=== PATIENT | female | born 1975 | race Caucasian/White ===

== ENCOUNTER → 2018-08-07 18:45 | Outpatient (CLI) | payer MEDICARE, MEDICAID, SELFPAY ==
--- NOTE | 2018-08-07 18:50 | DI.MRI.S_ITS ---
PROCEDURE: MR LUMBAR SPINE WO CON INDICATIONS: LOW BACK PAIN TECHNIQUE: Noncontrast sagittal T1 spin echo and T2 fast echo, sagittal STIR, axial T1 and T2 fast spin echo through the lumbar spine. In cases with scoliosis, additional coronal T2 fast spin echo may be performed. COMPARISON: None. FINDINGS: Image quality: Excellent. Alignment and Curvature: There is normal bony alignment. There is 8 degrees of convex left of lumbar spine curvature. Bone Marrow: Reactive endplate change is noted adjacent to the L3-L4, L4-L5 and L5-S1 discs. There is a 1.2 cm in diameter rounded focus of decreased T1 signal with surrounding edema in the left ala of the sacrum. There is a 0.9 cm diameter focus of decreased T1 signal in the anterior margin of the S1 vertebral body. There is an ill-defined area of decreased T1 and increased T2 signal in the right ala of the sacrum. Large Schmorl's node in the superior plate of the L1 vertebral body. No acute vertebral body compression fractures. Spinal Cord: Conus medullaris terminates at the L1 level. Visualized cord demonstrates normal signal and size. Paraspinous Soft Tissues: No paravertebral masses. Numerous retroperitoneal left renal systemic venous varices noted. L1-L2: Normal appearance. L2-L3: Slight loss of the signal. Minimal diffuse disc bulge. No central stenosis. No neural foraminal narrowing. No neural impingement. L3-L4: Loss of disc signal and slight loss of disc height. Mild diffuse disc bulge. Small left foraminal disc extrusion. Extruded disc material impinges on the exiting left L3 nerve root. No central stenosis. [id number] left neural foraminal narrowing. L4-L5: Loss of the signal slight loss of disc height. Mild diffuse disc bulge. No central stenosis. No neural foraminal narrowing. No neural impingement. L5-S1: Loss of the signal. Mild diffuse disc bulge with small central disc protrusion. No central stenosis. No neural foraminal narrowing. No neural impingement. IMPRESSION: 1. Foci of abnormal signal involving the sacrum concerning for neoplastic process including metastatic disease. Recommend nuclear medicine whole-body bone scan for further evaluation. 2. Multilevel degenerative disc disease. 3. Left foraminal L3-L4 disc extrusion. Extruded disc material impinges upon the exiting left L3 nerve root. Please correlate with clinical data. 4. No central stenosis. 5. Mild to moderate left L3-L4 neural foraminal narrowing. 6. Left renal systemic venous varices. Please correlate with clinical data to exclude hepatic cirrhosis with portal hypertension. 7. Findings and recommendations discussed with Dr. Soliman on 08/09/2018 at 0943 hours. Dictated by: Nilda Maher MD, PhD on 08/08/2018 at 9:30 Approved by: Nilda Maher MD, PhD on 08/08/2018 at 9:48
== END ==
PROVIDERS: Family Provider Family Medicine; PCP Family Medicine; Visit Provider Family Medicine
DX: M54.5 Low back pain (principal); M48.061 Spinal stenosis, lumbar region without neurogenic claudication; I86.8 Varicose veins of other specified sites; M51.36 Other intervertebral disc degeneration, lumbar region; M51.37 Other intervertebral disc degeneration, lumbosacral region; M51.46 Schmorl's nodes, lumbar region; M48.8X8 Other specified spondylopathies, sacral and sacrococcygeal region
CPT/HCPCS: 72148

== ENCOUNTER → 2018-08-11 09:32 | Outpatient (CLI) | payer MEDICARE, MEDICAID, SELFPAY ==
--- NOTE | 2018-08-11 | DI.NM.S_ITS ---
PROCEDURE: NM BONE SCAN WHOLE BODY RADIOPHARMACEUTICAL: 21.80 mCi Tc-99m MDP IV. INDICATIONS: BONE LESION ON SACRUM TECHNIQUE: Delayed whole-body scintigrams were obtained approximately 3-4 hours after intravenous injection of radiotracer. Anterior and posterior views were acquired from vertex to feet. Additional left and right oblique views of the pelvis were obtained. COMPARISON: [facility], CR, L-SPINE 2-3 VIEWS, 09/10/2014, 11:47. [facility], CR, SACROILIAC JOINTS 3 OR MORE VW, 09/10/2014, 11:47. [facility], MR, ABDOMEN W&WO CONTRAST, 10/31/2013, 17:43. [facility], CT, ABDOMEN/PELVIS WITH CONTRAST, 07/17/2013, 13:25. [facility], MR, MR LUMBAR SPINE WO CON, 08/07/2018, 18:55. FINDINGS: There is asymmetrically increased radiotracer uptake surrounding and involving the right sacroiliac joint; this may correlate with signal abnormalities seen on comparison MRI.. No definite radiotracer uptake to correlate with the lesion seen within the left sacrum on comparison MRI of 08/07/18. Remainder of periarticular radiotracer uptake within the spine, bilateral hip joints, bilateral shoulder joints, and bilateral ankles are likely secondary to degenerative change or physiologic uptake. IMPRESSION: 1. Asymmetric increased radiotracer uptake surrounding and involving the right sacroiliac joint, which is likely secondary to degenerative change but can also be seen secondary to infectious, inflammatory, or malignant etiologies. Clinical correlation recommended. 2. No convincing abnormal radiotracer uptake within the left sacrum to correlate with the bone lesion seen on comparison lumbar spine MRI of 08/07/18. Consider musculoskeletal pelvic bone MRI with intravenous contrast for further evaluation. Dictated by: Guillermo Canada M.D. on 08/11/2018 at 15:52 Approved by: Guillermo Canada M.D. on 08/11/2018 at 16:11
== END ==
PROVIDERS: Family Provider Family Medicine; PCP Family Medicine; Visit Provider Family Medicine
DX: M53.3 Sacrococcygeal disorders, not elsewhere classified (principal)
CPT/HCPCS: 78306; A9503

== ENCOUNTER → 2018-09-26 16:56 | Outpatient (CLI) | payer MEDICARE, MEDICAID, SELFPAY ==
--- NOTE | 2018-09-26 17:01 | DI.MRI.S_ITS ---
PROCEDURE: MR PELIS WO/W CON INDICATIONS: abnormal nuc med scan TECHNIQUE: Noncontrast coronal T1 spin echo and STIR, sagittal T1 spin echo with fat saturation and STIR, axial T1 spin echo and T2 fast spin echo with fat saturation. After the administration of contrast, axial/sagittal/coronal T1 spin echo with fat saturation through the pelvis. COMPARISON: [facility], NM, NM BONE SCAN WHOLE BODY, 08/11/2018, 13:01. [facility], MR, MR LUMBAR SPINE WO CON, 08/07/2018, 18:55. [facility], CR, SACROILIAC JOINTS 3 OR MORE VW, 09/10/2014, 11:47. [facility], CR, XR LUMBAR SPINE 2 OR 3 VIEWS, 08/28/2018, 14:31. [facility], CT, ABDOMEN/PELVIS WITH CONTRAST, 07/17/2013, 13:25. FINDINGS: Image quality: Excellent. Bones: The visualized bone marrow demonstrates normal signal on all sequences except at the sacrum bilaterally and the endplate and vertebral body marrow space adjacent above and below to the mildly degenerated disc at L3-4. The nuclear medicine bone scan had shown asymmetric right-sided elevated isotope deposition but no abnormality at the L3-4 vertebral body marrow space and endplates. The sacral ala abnormality in the MR study currently is now bilaterally. It had been unilateral on the right on the nuclear medicine study. Vertically oriented bands of reduced T2 signal and reduced contrast enhancement are present within each sacral ala, characteristic of bilateral insufficiency fractures. The overlying cortex appears intact. No abnormal intraosseous enhancement. Soft tissues: No soft tissue masses are visualized. The scanned muscles demonstrate normal overall bulk and internal signal. Subcutaneous tissues appear normal as well. No abnormal soft tissue enhancement. IMPRESSION: Malignancy is not suspected. Bilateral sacral ala insufficiency fractures are present producing elevated T2 signal and contrast enhancement with vertically oriented striations through the area of marrow edema characteristic of an intertrabecular fractures in this clinical circumstance. Degenerative disc disease could explain the reactive marrow edema adjacent to the L3-4 disc space both above and below. Please note, however, that slight insufficiency fractures within the vertebral endplates at L3-4 in the setting of osteoporosis could produce this same appearance. Next same area was not abnormal in the nuclear medicine study only a short time ago and for this reason osteoporotic etiology is considered a likely cause. Dictated by: Je Garcia M.D. on 09/27/2018 at 8:38 Approved by: Je Garcia M.D. on 09/27/2018 at 8:44
== END ==
PROVIDERS: PCP Family Medicine; Visit Provider Physical Medicine & Rehabilitation Pain Medicine
DX: M54.5 Low back pain (principal); M84.48XA Pathological fracture, other site, initial encounter for fracture
CPT/HCPCS: 72197; A9579

== ENCOUNTER → 2019-04-24 14:34 | Outpatient (CLI) | payer MEDICARE, SELFPAY | PROVIDERS: PCP Family Medicine; Visit Provider Family Medicine | DX: M81.0 Age-related osteoporosis without current pathological fracture (principal); S02.2XXA Fracture of nasal bones, initial encounter for closed fracture; M46.1 Sacroiliitis, not elsewhere classified; M54.30 Sciatica, unspecified side; Z82.62 Family history of osteoporosis; F17.200 Nicotine dependence, unspecified, uncomplicated | CPT/HCPCS: 77080 ==

== ENCOUNTER → 2019-05-04 13:18 | Outpatient (CLI) | payer MEDICARE, MEDICAID, SELFPAY ==
--- NOTE | 2019-05-04 | DI.RAD.S_ITS ---
PROCEDURE: XR LUMBAR SPINE 2-3V INDICATIONS: Follow up on bilteral Saccral insufficieny fracture TECHNIQUE: 3 views of the lumbar spine were acquired. COMPARISON: [facility], , L-SPINE 2-3 VIEWS, 09/10/2014, 11:47. FINDINGS: Bones: No fracture or focal osseous destruction. Straightening of the normal lordotic curvature. Multilevel degenerative endplate sclerosis and spurring. Diffuse facet arthropathy. Minimal anterior wedging of L1 which is unchanged. Severe narrowing of the L3-L4 disc space and moderate L4-L5 disc space narrowing. There is interval increase in levoscoliosis Soft tissues: Overlying bowel gas pattern is normal. No suspicious soft tissue calcifications. IMPRESSION: Levoscoliosis, increased since the prior study. Multilevel lumbar spondylosis, which has progressed since 09/10/14 Dictated by: Kam Barton M.D. on 05/04/2019 at 16:22 Approved by: Kam Barton M.D. on 05/04/2019 at 16:23
--- NOTE | 2019-05-04 | DI.RAD.S_ITS ---
PROCEDURE: XR SACRUM COCCYX MIN 2V INDICATIONS: Follow up on bilteral Saccral insufficieny fractur TECHNIQUE: 3 views of the sacrum and coccyx acquired. COMPARISON: [facility], CR, XR LUMBAR SPINE 2 OR 3 VIEWS, 08/28/2018, 14:31. [facility], CR, XR LUMBAR SPINE 2-3V, 05/04/2019, 13:31. [facility], CR, SACROILIAC JOINTS 3 OR MORE VW, 09/10/2014, 11:47. [facility], MR, MR PELVIS WO/W CON, 09/26/2018, 17:02. FINDINGS: Bones: No suspicious bony lesions. Irregularity and sclerosis involving both sacral ala keeping with insufficiency fractures as seen on the previous comparison MRI Soft tissues: Visualized bowel gas pattern is normal. No suspicious soft tissue densities. IMPRESSION: Bilateral sacral ala insufficiency fractures as before. Mild increased sclerosis since 08/28/18 Dictated by: Kam Barton M.D. on 05/04/2019 at 16:24 Approved by: Kam Barton M.D. on 05/04/2019 at 16:27
== END ==
PROVIDERS: PCP Family Medicine; Referring Provider Family Medicine; Visit Provider Family Medicine
DX: M84.48XA Pathological fracture, other site, initial encounter for fracture (principal); M47.816 Spondylosis without myelopathy or radiculopathy, lumbar region; M41.9 Scoliosis, unspecified
CPT/HCPCS: 72100; 72220

== ENCOUNTER 2019-05-24 11:24 | Inpatient (IN) | payer MEDICARE, MEDICAID, SELFPAY ==
[2019-05-24] VITALS (7 sets, daily range): BP systolic 104–135; BP diastolic 41–81; PULSE 54–84; RESP 17–18; TEMP 36.4–37.2; O2SAT 92–100; BMI 19.9
[2019-05-24 12:05] LABS: Add Manual Diff / Slide Review NO; Basophils Absolute Auto 100 /uL (0-100); Basophils Percent Auto 0.6 % (0-2); Eosinophils Absolute Auto 0 /uL (0-450); Eosinophils Percent Auto 0.5 % (2-4); Hematocrit 40.9 % (36-46); Hemoglobin 14.1 g/dL (12.0-16.0); Lymphocytes Absolute Auto 1400 /uL (1100-4500); Lymphocytes Percent Auto 15.6 % (25-40); Mean Corpuscular HGB Conc 34.5 % (30-36); Mean Corpuscular Hemoglobin 34.4 PG (26-34); Mean Corpuscular Volume 99.7 fL (80-100); Monocytes Absolute Auto 400 /uL (0-900); Monocytes Percent Auto 4.9 % (3-14); Neutrophils Absolute Auto 6800 /uL (1500-7000); Neutrophils Percent Auto 78.4 % (50-75); Platelet Count 74 X10^3/uL (150-400); Red Cell Distribution Width 14.4 % (11.6-14.8); White Blood Cell Count 8.7 X10^3/uL (4.5-11.0)
[2019-05-24 12:10] LABS: INR 1.2 (0.9-1.3); Prothrombin Time 13.6 SECONDS (10.1-12.7)
[2019-05-24 12:12] LABS: PTT Partial Thromboplastin Tim 33 SECONDS (26.4-36.2)
[2019-05-24 12:14] LABS: Alanine Aminotransferase 18 IU/L (<35); Albumin 4.6 g/dL (3.5-5.0); Albumin Globulin Ratio 1.3 (1.0-2.8); Alkaline Phosphatase 65 U/L (38-126); Aspartate Aminotransferase 29 IU/L (14-36); Bilirubin Total 1.5 mg/dL (0.2-1.3); Blood Urea Nitrogen 44 mg/dL (7-17); Calcium 9.5 mg/dL (8.4-10.2); Carbon Dioxide 25 mmol/L (22-32); Chloride 106 mmol/L (98-107); Estimated Glomerular Filt Rate > 60.0 mL/min (>60); Globulin 3.6 g/dL (1.7-4.1); Glucose 167 mg/dL (70-100); HEMOLYSIS < 15 (0-50); Lipase 174 U/L (23-300); Sodium 143 mmol/L (137-145); Total Protein 8.2 g/dL (6.3-8.2)
[2019-05-24 12:19] LABS: Potassium 2.6 mmol/L (3.4-5.1)
--- NOTE | 2019-05-24 13:18 | ED.WEAKNESS ---
HPI - Weakness General Chief complaint: Weakness Stated complaint: weak as can be/slept for 4 days Time Seen by Provider: 05/24/19 13:17 Source: patient Mode of arrival: Ambulatory Limitations: no limitations History of Present Illness HPI Narrative: 43-year-old female former smoker and former heavy alcohol abuser presents with a chief complaint of sleeping for what she describes as 4 days and does not know why. She denies any alcohol or street drugs or any other complaints leading into this long episode of sleeping. Upon waking she does not recall why she slept that long Related Data Home Medications Medication Instructions Recorded Confirmed celecoxib 200 mg PO BID 05/24/19 05/24/19 citalopram 20 mg PO DAILY 05/24/19 05/24/19 dicyclomine 20 mg PO DAILY 05/24/19 05/24/19 duloxetine 20 mg PO DAILY 05/24/19 05/24/19 gabapentin 600 mg PO TID 05/24/19 05/24/19 hydrocodone-acetaminophen 1 tab PO Q4H PRN 05/24/19 05/24/19 potassium gluconate 595 mg PO DAILY 05/24/19 05/24/19 trazodone 50 - 100 mg PO BEDTIME PRN 05/24/19 05/24/19 Allergies Allergy/AdvReac Type Severity Reaction Status Date / Time No Known Drug Allergies Allergy Verified 05/24/19 11:43 Review of Systems Constitutional Constitutional: Denies chills, Denies fatigue, Denies fever(s), Denies frequent falls, Denies lethargy and Reports weakness Eyes Eyes: Denies change in vision, Denies eye discharge, Denies irritation and Denies loss of vision ENT Ears, Nose, Mouth, and Throat: Denies change in voice, Denies dizziness, Denies neck pain, Denies sore throat and Denies throat swelling Cardiovascular Cardiovascular: Denies chest pain, Denies irregular heart rhythm, Denies lightheadedness, Denies palpitations, Denies dyspnea, Denies dyspnea on exertion and Denies orthopnea Respiratory Respiratory: Denies cough, Denies dyspnea, Denies dyspnea on exertion and Denies wheezing Gastrointestinal Gastrointestinal: Denies abdominal pain, Denies change in bowel habits, Denies diarrhea, Denies nausea and Denies vomiting Genitourinary Genitourinary: Denies hematuria, Denies flank pain, Denies urinary incontinence and Denies urinary urgency Musculoskeletal Musculoskeletal: Denies back pain, Denies muscle weakness, Denies neck pain, Denies numbness and Denies tingling Integumentary/Breasts Skin/Breast: Denies pruritus, Denies erythema, Denies rash and Denies wounds Neurologic Neurologic: Denies behavioral changes, Reports confusion, Denies dizziness, Denies frequent falls, Denies loss of vision, Denies numbness, Denies tingling and Reports weakness Psychiatric Psychiatric: Denies anxiety, Denies behavioral changes, Reports confusion, Denies depression, Denies homicidal ideation and Denies suicidal ideation Endocrine Endocrine: Denies fatigue, Denies flushing and Denies palpitations Hematologic/Lymphatic Hematologic/Lymphatic: Denies easy bruising Allergic/Immunologic Allergic/Immunologic: Denies urticaria, Denies throat swelling and Denies wheezing Patient History Smoking Status: Former smoker alcohol intake frequency: other Exam Narrative Exam Narrative: GENERAL: [43] year old patient appears stated age. Well-nourished, well-developed patient, in mild distress. Alert but slightly confused HEAD: Atraumatic. Normocephalic. EYES: Pupils equal round and reactive. Extraocular motions intact. No scleral icterus. No injection or drainage. ENT: Nose without bleeding, purulent drainage. Throat without erythema, tonsillar hypertrophy or exudate. Airway patent. NECK: Trachea midline. Non tender CARDIOVASCULAR: Regular rate and rhythm without murmurs, gallops, or rubs. RESPIRATORY: Clear to auscultation. Breath sounds equal bilaterally. No wheezes, rales, or rhonchi. GASTROINTESTINAL: Abdomen soft, non-tender, nondistended. EXTREMITIES: No edema or joint tenderness. BACK: Nontender without deformity or crepitance. No flank tenderness. NEURO: AOx3. SKIN: No rash or erythema of visible areas Initial Vital Signs Initial Vital Signs: Vital Signs Temperature 97.6 F 05/24/19 11:43 Pulse Rate 65 05/24/19 11:43 Respiratory Rate 18 05/24/19 11:43 Blood Pressure 135/77 05/24/19 11:43 Pulse Oximetry 100 05/24/19 11:43 Scores GCS [place] coma scale eye opening: Spontaneous [place] coma scale verbal response: Confused [place] coma scale motor response: Obey commands [place] coma scale total score: 14 Course Orders Ordered: ED Orders 05/24/19 11:55 Complete Blood Count AUTO DIFF Stat Comprehensive Metabolic Panel Stat Lipase Stat Partial Thromboplastin Time Stat Prothrombin Time INR Stat 05/24/19 12:58 EKG-12 Lead Stat 05/24/19 13:11 Urine Drug Screen, Rapid Stat 05/24/19 13:42 Ammonia (NH3) Stat 05/24/19 15:33 CT head/brain wo con Stat Potassium Chloride 80 meq/ (Sodium Chloride) 1,040 mls @ 130 mls/hr IV NOW ONE Stop: 05/24/19 21:18 Last Admin: 05/24/19 13:46 Dose: 130 mls/hr Documented by: BHAVANI Cosigned by: ROMAINE Discontinued Medications Sodium Chloride (Normal Saline 0.9%) 1,000 mls @ 1,000 mls/hr IV BOLUS ONE Stop: 05/24/19 14:23 Last Admin: 05/24/19 13:47 Dose: 1,000 mls/hr Documented by: BHAVANI Lactulose (Enulose) 20 gm PO NOW ONE Stop: 05/24/19 14:26 Last Admin: 05/24/19 14:44 Dose: 20 gm Documented by: BHAVANI Vital Signs Vital signs: Vital Signs - 8 hr 05/24/19 11:43 05/24/19 14:24 Temperature 97.6 F Pulse Rate 65 54 L Respiratory Rate 18 17 Blood Pressure 135/77 Blood Pressure [Right Arm] 118/72 Pulse Oximetry 100 99 MDM - Weakness Lab Data Result diagrams: 05/24/19 11:55 05/24/19 11:55 Labs: Lab Results 05/24/19 05/24/19 05/24/19 Range/Units 11:55 11:55 11:55 WBC 8.7 (4.5-11.0) X10^3/uL RBC 4.10 (4.0-5.2) X10^6/uL Hgb 14.1 (12.0-16.0) g/dL Hct 40.9 (36-46) % MCV 99.7 (80-100) fL MCH 34.4 H (26-34) PG MCHC 34.5 (30-36) % RDW 14.4 (11.6-14.8) % Plt Count 74 L (150-400) X10^3/uL Neut % (Auto) 78.4 H (50-75) % Lymph % (Auto) 15.6 L (25-40) % [place] % (Auto) 4.9 (3-14) % Eos % (Auto) 0.5 L (2-4) % Baso % (Auto) 0.6 (0-2) % Neut # (Auto) 6800 (8998-7672) /uL Lymph # (Auto) 1400 (1511-0081) /uL [facility] # (Auto) 400 (0-900) /uL Eos # (Auto) 0 (0-450) /uL Baso # (Auto) 100 (0-100) /uL PT 13.6 H (10.1-12.7) SECONDS INR 1.2 (0.9-1.3) APTT 33 (26.4-36.2) SECONDS Sodium 143 (137-145) mmol/L Potassium 2.6 L* (3.4-5.1) mmol/L Chloride 106 (98-107) mmol/L Carbon Dioxide 25 (22-32) mmol/L BUN 44 H (7-17) mg/dL Creatinine 0.80 (0.52-1.04) mg/dL Estimated GFR > 60.0 (>60) mL/min BUN/Creatinine Ratio 55.0 H (6-22) Glucose 167 H (70-100) mg/dL Calcium 9.5 (8.4-10.2) mg/dL Total Bilirubin 1.5 H (0.2-1.3) mg/dL AST 29 (14-36) IU/L ALT 18 (<35) IU/L Alkaline Phosphatase 65 (38-126) U/L Ammonia (9-30) umol/L Total Protein 8.2 (6.3-8.2) g/dL Albumin 4.6 (3.5-5.0) g/dL Globulin 3.6 (1.7-4.1) g/dL Albumin/Globulin Ratio 1.3 (1.0-2.8) Lipase 174 (23-300) U/L U Opiates 300ng/mL cut (Negative) Ur Oxycodone Screen (Negative) Urine Methadone Screen (Negative) Ur Barbiturates Screen (Negative) U Tricyclic Antidepress (Negative) Ur Phencyclidine Scrn (Negative) Ur Amphetamines Screen (Negative) U Methamphetamines Scrn (Negative) Ur MDMA Scrn (Ecstasy) (Negative) U Benzodiazepines Scrn (Negative) Urine Cocaine Screen (Negative) U Marijuana (THC) Screen (Negative) 05/24/19 05/24/19 Range/Units 13:11 13:42 WBC (4.5-11.0) X10^3/uL RBC (4.0-5.2) X10^6/uL Hgb (12.0-16.0) g/dL Hct (36-46) % MCV (80-100) fL MCH (26-34) PG MCHC (30-36) % RDW (11.6-14.8) % Plt Count (150-400) X10^3/uL Neut % (Auto) (50-75) % Lymph % (Auto) (25-40) % [facility] % (Auto) (3-14) % Eos % (Auto) (2-4) % Baso % (Auto) (0-2) % Neut # (Auto) (9701-9561) /uL Lymph # (Auto) (9213-0998) /uL [facility] [place] # (Auto) (0-900) /uL Eos # (Auto) (0-450) /uL Baso # (Auto) (0-100) /uL PT (10.1-12.7) SECONDS INR (0.9-1.3) APTT (26.4-36.2) SECONDS Sodium (137-145) mmol/L Potassium (3.4-5.1) mmol/L Chloride (98-107) mmol/L Carbon Dioxide (22-32) mmol/L BUN (7-17) mg/dL Creatinine (0.52-1.04) mg/dL Estimated GFR (>60) mL/min BUN/Creatinine Ratio (6-22) Glucose (70-100) mg/dL Calcium (8.4-10.2) mg/dL Total Bilirubin (0.2-1.3) mg/dL AST (14-36) IU/L ALT (<35) IU/L Alkaline Phosphatase (38-126) U/L Ammonia 58 H (9-30) umol/L Total Protein (6.3-8.2) g/dL Albumin (3.5-5.0) g/dL Globulin (1.7-4.1) g/dL Albumin/Globulin Ratio (1.0-2.8) Lipase (23-300) U/L U Opiates 300ng/mL cut Positive H (Negative) Ur Oxycodone Screen Negative (Negative) Urine Methadone Screen Negative (Negative) Ur Barbiturates Screen Negative (Negative) U Tricyclic Antidepress Negative (Negative) Ur Phencyclidine Scrn Negative (Negative) Ur Amphetamines Screen Negative (Negative) U Methamphetamines Scrn Negative (Negative) Ur MDMA Scrn (Ecstasy) Negative (Negative) U Benzodiazepines Scrn Negative (Negative) Urine Cocaine Screen Negative (Negative) U Marijuana (THC) Screen Positive H (Negative) Urine Dip Bedside Urine Glucose Negative Bedside Urine Bilirubin + 1 Bedside Urine Ketone - Negative Urine Specific [place] 1.015 Bedside Urine Occult Blood +/- Bedside Urine pH 6.5 Bedside Urine Protein +/- 15 Bedside Urine Urobilinogen 1+ 2mg Bedside Urine Nitrite - Negative Bedside Urine Leukocytes - Negative Esterase Imaging Data CT scan - head: Radiologist Impression: [address] [address] [address] Scan Report Signed Patient: Gely Wilson#: [id number] : 1975Acct:[id number] Age/Sex: 43 / FDate of Service: 05/24/19 Loc: ED Accession Number: [id number] Procedure: CT head/brain wo con Ordering Provider: Ke Oquendo D.O. PROCEDURE: CT HEAD/BRAIN WO CON INDICATIONS: mental status change, platelets 75 TECHNIQUE: Noncontrast 4.5 mm thick angled axial sections acquired from the foramen magnum to the vertex, with coronal and sagittal reformats. For radiation dose reduction, the following was used: automated exposure control, adjustment of mA and/or kV according to patient size. COMPARISON: None. FINDINGS: Image quality: Excellent. CSF spaces: Basal cisterns are patent. No extra-axial fluid collections. Ventricles are normal in size and shape. Brain: No midline shift. No intracranial masses or hemorrhage. [place]-white matter interface is normal. Skull and face: Calvarium and visualized facial bones are intact, without suspicious lesions. Sinuses: Visualized sinuses and mastoids are clear. IMPRESSION: 1. No acute intracranial abnormalities. Dictated by: Issac Armijo M.D. on 05/24/2019 at 15:48 Approved by: Issac Armijo M.D. on 05/24/2019 at 15:54 Discharge Plan Departure Patient Disposition: Admitted As Inpatient Clinical Impression: Acute hepatic encephalopathy, Acute hypokalemia Admit Date/Time: 05/24/19 15:58 Admit Provider: Terrence Woodruff
[2019-05-24] MEDS: POTASSIUM CHLORIDE 80 MEQ in SODIUM CHLORIDE 0.9% 1,000 ML 130 ML IV (13:46)
[2019-05-24] MEDS: SODIUM CHLORIDE 0.9% 1,000 ML 1000 ML IV (13:47)
[2019-05-24 14:04] LABS: Ammonia (NH3) 58 umol/L (9-30)
[2019-05-24 14:06] LABS: UR Morphine/Opiate cutoff 300 Positive (Negative); Ur Creatinine Normal (Normal); Ur Specific Gravity Normal (Normal); Urine Amphetamines Negative (Negative); Urine Barbiturates Negative (Negative); Urine Benzodiazepines Negative (Negative); Urine Cocaine Negative (Negative); Urine MDMA Negative (Negative); Urine Methadone Negative (Negative); Urine Methamphetamines Negative (Negative); Urine Oxycodone Negative (Negative); Urine Phencyclidine Negative (Negative); Urine Tetrahydrocannabinol Positive (Negative); Urine Tricyclic Antidepressant Negative (Negative); Urine pH Normal (Normal)
[2019-05-24] MEDS: LACTULOSE 20 GM/30 ML SOLUTION PO (14:44)
--- NOTE | 2019-05-24 15:33 | DI.CT.S_ITS ---
PROCEDURE: CT HEAD/BRAIN WO CON INDICATIONS: mental status change, platelets 75 TECHNIQUE: Noncontrast 4.5 mm thick angled axial sections acquired from the foramen magnum to the vertex, with coronal and sagittal reformats. For radiation dose reduction, the following was used: automated exposure control, adjustment of mA and/or kV according to patient size. COMPARISON: None. FINDINGS: Image quality: Excellent. CSF spaces: Basal cisterns are patent. No extra-axial fluid collections. Ventricles are normal in size and shape. Brain: No midline shift. No intracranial masses or hemorrhage. [place]-white matter interface is normal. Skull and face: Calvarium and visualized facial bones are intact, without suspicious lesions. Sinuses: Visualized sinuses and mastoids are clear. IMPRESSION: 1. No acute intracranial abnormalities. Dictated by: Issac Armijo M.D. on 05/24/2019 at 15:48 Approved by: Issac Armijo M.D. on 05/24/2019 at 15:54
--- NOTE | 2019-05-24 18:40 | PM.HP.1 ---
History of Present Illness History of Present Illness Date Patient Seen: 05/24/19 Time Patient Seen: 18:02 Chief complaint: weak as can be/slept for 4 days Narrative: Patient is a 43-year-old female who recently started a new medication duloxetine or Cymbalta for an attempt to try to help with pain management. After several days on the medication she is centrally went to sleep did not wake up except a timer 2 to go to the bathroom for almost 4 days. No fevers chills nausea vomiting did have an episode her to have diarrhea but no bleeding. No increased abdominal swelling distension fevers chills. She has passed a significant alcohol history but is an absolute nondrinker for 6 years now. Does however have cirrhosis and some up attic insufficiency. First thought was that she might have ascites and spontaneous bacterial peritonitis or worsening liver failure recommended they get a serum ammonia level through ER which they did an found to be 58. At the time I see patient 2 hours later on the floor she is awake and speaking clearly cognitively intact no tenderness and seems more like her self. Will hold sedating meds tonight and look into liver function in the morning recheck serum ammonia. Patient History Medical History (Updated 05/24/19 @ 18:40 by Sunil Skaggs RN) Chronic high back pain (Acute) H/O ETOH abuse (Acute) Family & Social History Safety & Behavioral: Feels Safe in Current Yes Environment Been Physically Hurt or No Threatened By a Person Tobacco & Substance use: Smoking Status Former smoker alcohol intake frequency other Meds Home Medications and Allergies Home Medications Medication Instructions Recorded Confirmed Type celecoxib 200 mg PO BID 05/24/19 05/24/19 History citalopram 20 mg PO DAILY 05/24/19 05/24/19 History dicyclomine 20 mg PO DAILY 05/24/19 05/24/19 History duloxetine 20 mg PO DAILY 05/24/19 05/24/19 History gabapentin 600 mg PO TID 05/24/19 05/24/19 History hydrocodone-acetaminophen 1 tab PO Q4H PRN 05/24/19 05/24/19 History potassium gluconate 595 mg PO DAILY 05/24/19 05/24/19 History trazodone 50 - 100 mg PO BEDTIME PRN 05/24/19 05/24/19 History Allergies Allergy/AdvReac Type Severity Reaction Status Date / Time No Known Drug Allergies Allergy Verified 05/24/19 11:43 Review of Systems Review of Systems Narrative: Patient reports extreme sleepiness and fatigue essentially sleeping through 4 days. Denies fever chills chest pain palpitations abdominal pain bleeding undo bruising and increased abdominal distension No vision changes No report of significant shortness of breath cough or wheezing No chest pain shortness of breath or increased swelling Abdomen without increased distension and no abdominal pain. ROS: Yes All systems reviewed with the patient and are negative except as otherwise documented Exam Vital Signs (past 8 hours): - 05/24/19 11:43 05/24/19 14:24 05/24/19 16:15 Temperature 97.6 F 98.7 F Pulse Rate 65 54 L 84 Respiratory Rate 18 17 17 Blood Pressure 135/77 104/41 L Blood Pressure [Right Arm] 118/72 Pulse Oximetry 100 99 92 05/24/19 17:30 05/24/19 18:00 Temperature 98.9 F Pulse Rate 64 59 L Respiratory Rate 18 17 Blood Pressure 124/68 Blood Pressure [Right Arm] 124/81 Pulse Oximetry 99 99 Oxygen Delivery Method Room Air Narrative Exam Narrative: Patient almost unarousable for the last 4 days but it very clear conversant speaking clearly without any slurring or confusion now. PERRLA EOMs intact sclera nonicteric Neck without any mass nodes or swelling Lungs clear to auscultation and percussion CV shows regular rate and rhythm without murmur S3 Abdomen slightly distended little bit of fluid and there but not better at all no rebound or guarding or mass noted. Slight liver enlargement Back and skin without any significant skin lesions. Neuro intact and symmetrical to sensory and motor slight diffuse weakness cranial nerves intact speech clear Objective Labs Result Diagrams: 05/24/19 11:55 05/24/19 11:55 Labs: Laboratory Results - last 24 hr 05/24/19 05/24/19 05/24/19 11:55 11:55 11:55 WBC 8.7 RBC 4.10 Hgb 14.1 Hct 40.9 MCV 99.7 MCH 34.4 H MCHC 34.5 RDW 14.4 Plt Count 74 L Neut % (Auto) 78.4 H Lymph % (Auto) 15.6 L [place] % (Auto) 4.9 Eos % (Auto) 0.5 L Baso % (Auto) 0.6 Neut # (Auto) 6800 Lymph # (Auto) 1400 [place] # (Auto) 400 Eos # (Auto) 0 Baso # (Auto) 100 PT 13.6 H INR 1.2 APTT 33 Sodium 143 Potassium 2.6 L* Chloride 106 Carbon Dioxide 25 BUN 44 H Creatinine 0.80 Estimated GFR > 60.0 BUN/Creatinine Ratio 55.0 H Glucose 167 H Calcium 9.5 Total Bilirubin 1.5 H AST 29 ALT 18 Alkaline Phosphatase 65 Ammonia Total Protein 8.2 Albumin 4.6 Globulin 3.6 Albumin/Globulin Ratio 1.3 Lipase 174 U Opiates 300ng/mL cut Ur Oxycodone Screen Urine Methadone Screen Ur Barbiturates Screen U Tricyclic Antidepress Ur Phencyclidine Scrn Ur Amphetamines Screen U Methamphetamines Scrn Ur MDMA Scrn (Ecstasy) U Benzodiazepines Scrn Urine Cocaine Screen U Marijuana (THC) Screen 05/24/19 05/24/19 13:11 13:42 WBC RBC Hgb Hct MCV MCH MCHC RDW Plt Count Neut % (Auto) Lymph % (Auto) [place] % (Auto) Eos % (Auto) Baso % (Auto) Neut # (Auto) Lymph # (Auto) [place] # (Auto) Eos # (Auto) Baso # (Auto) PT INR APTT Sodium Potassium Chloride Carbon Dioxide BUN Creatinine Estimated GFR BUN/Creatinine Ratio Glucose Calcium Total Bilirubin AST ALT Alkaline Phosphatase Ammonia 58 H Total Protein Albumin Globulin Albumin/Globulin Ratio Lipase U Opiates 300ng/mL cut Positive H Ur Oxycodone Screen Negative Urine Methadone Screen Negative Ur Barbiturates Screen Negative U Tricyclic Antidepress Negative Ur Phencyclidine Scrn Negative Ur Amphetamines Screen Negative U Methamphetamines Scrn Negative Ur MDMA Scrn (Ecstasy) Negative U Benzodiazepines Scrn Negative Urine Cocaine Screen Negative U Marijuana (THC) Screen Positive H Assessment & Plan Assessment & Plan narrative: Assessment 1. Weakness and sedation. Patient was brought into the ER by family because she to centrally been asleep for 4 days not responding except to get up occasionally to go to the bathroom. No reported fever jaundice vomiting chest pain. Past alcohol history is absolutely not been restarted. Does have some hepatic insufficiency and had started a new medicine in an attempt to try to manage med depression and pain which was duloxetine. That may be that that not cleared through liver normally had something to do with her episode of sedation. Head CT scan in the ER was normal so I do not think she has got intercranial process I do not think there severe worsening or change in her liver size or function. Will admit hydrate avoid sedating medications and monitor mental status and physical strength. Assessment 2. Chronic hepatic insufficiency serum ammonia at this point is 54. That is not tremendously higher than it has been and she is definitely cleared a lot now. Will monitor reminded her that in the morning. Assessment 3. Hypokalemia I think patient was not hydrating well and did have some episodes of diarrhea could of got her electrolytes out of whack. Is getting IV replacement with potassium replacement and now and have significant improvement in potassium so far all continue to monitor. Assessment 4. Chronic back pain. Patient does take hydrocodone for this but has not been misusing that or using increased levels of her medication. Will hold tonight because of her recent sedation any opiates or sedating meds. Assessment 5. Depression patient actually has been fairly stable depression she would like to feel little better and so we were thinking anion medication might help. That may have not been processed well through her liver may have triggered this recent episode of sedation and weakness. Assessment 6. Smoking history patient has been smoker will see if she wakes wakes up enough becomes alert enough to feel like she needs cigarettes of so will apply a nicotine patch at that point.
[2019-05-24] MEDS: SODIUM CHLORIDE 0.9% 1,000 ML 125 ML IV (22:38)
[2019-05-25] VITALS (11 sets, daily range): BP systolic 110–139; BP diastolic 59–99; PULSE 40–58; RESP 16–19; TEMP 36.7–37.5; O2SAT 98–100
[2019-05-25] MEDS: TRAZODONE 50 MG TABLET PO ×2 (02:12→19:40)
--- NOTE | 2019-05-25 02:17 | PC.NURSE ---
Dr. Woodruff notified that pt. is very restless & requesting her Trazadone. Trazadone ordered & admin., encouraged pt. tp get some sleep. Will cont. POC & monitor.
[2019-05-25] MEDS: PANTOPRAZOLE 20 MG TABLET PO (05:47)
[2019-05-25] MEDS: SODIUM CHLORIDE 0.9% 1,000 ML 125 ML IV (06:48)
[2019-05-25] MEDS: HYDROCODONE/ACET 5/325 TABLET 1 TAB PO ×2 (09:13→17:41)
[2019-05-25 09:31] LABS: Add Manual Diff / Slide Review NO; Basophils Absolute Auto 0 /uL (0-100); Basophils Percent Auto 0.3 % (0-2); Eosinophils Absolute Auto 0 /uL (0-450); Eosinophils Percent Auto 0.8 % (2-4); Hematocrit 38.2 % (36-46); Hemoglobin 13.2 g/dL (12.0-16.0); Lymphocytes Absolute Auto 1200 /uL (1100-4500); Lymphocytes Percent Auto 18.8 % (25-40); Mean Corpuscular HGB Conc 34.4 % (30-36); Mean Corpuscular Hemoglobin 34.6 PG (26-34); Mean Corpuscular Volume 100.5 fL (80-100); Monocytes Absolute Auto 200 /uL (0-900); Monocytes Percent Auto 3.6 % (3-14); Neutrophils Absolute Auto 4800 /uL (1500-7000); Neutrophils Percent Auto 76.5 % (50-75); Platelet Count 57 X10^3/uL (150-400); Red Cell Distribution Width 15.1 % (11.6-14.8); White Blood Cell Count 6.3 X10^3/uL (4.5-11.0)
[2019-05-25 09:45] LABS: Ammonia (NH3) 15 umol/L (9-30)
[2019-05-25 09:46] LABS: Alanine Aminotransferase 17 IU/L (<35); Albumin 4.3 g/dL (3.5-5.0); Albumin Globulin Ratio 1.2 (1.0-2.8); Alkaline Phosphatase 66 U/L (38-126); Aspartate Aminotransferase 30 IU/L (14-36); BUN Creatinine Ratio 42.9 (6-22); Blood Urea Nitrogen 30 mg/dL (7-17); Calcium 9.2 mg/dL (8.4-10.2); Carbon Dioxide 21 mmol/L (22-32); Chloride 119 mmol/L (98-107); Estimated Glomerular Filt Rate > 60.0 mL/min (>60); Globulin 3.6 g/dL (1.7-4.1); Glucose 105 mg/dL (70-100); HEMOLYSIS < 15 (0-50); Potassium 3.5 mmol/L (3.4-5.1); Sodium 150 mmol/L (137-145); Total Protein 7.9 g/dL (6.3-8.2)
[2019-05-25] MEDS: CELECOXIB 200 MG CAPSULE PO (11:50)
--- NOTE | 2019-05-25 12:09 | PC.NURSE ---
Addendum entered by Julio Crain R.N. 05/25/19 14:35: Patient remains asymptomatic in the circumstances of bradycardia. ECG taken, results called to office of Dr. Woodruff. Care continues. Original Note: Nurse Note Patient alert and oriented this shift. Frequent calls from ICU staff monitoring tele for bradycardia, sometimes dipping as low as 35. Patient asymptomatic, blood pressure 131/66. Dr. Woodruff called, updated on situation, no new orders as of this time. At approx. 1130 ICU staff called with report that patient possibly switching in and out of a junctional rhythm with continued bradycardia. Dr. Woodruff office was contacted, ICU staff states that they will receive call back from Dr. Woodruff to their extension to speak with him regarding the situation. Care is ongoing.
--- NOTE | 2019-05-25 12:11 | CM.DANOTE ---
DCP Assessment: EMR Reviewed: Patient is a 43 yr old female. PCP is dr Woodruff. CM/RN met with patient at the bedside and explained role. Patient was alert and oriented x3 but did state she was very ready to go home. Patient currently lives in a single level home with her sister Lashonda. Patient states she is I with all ADL's and drives at baseline. Patient states I am feeling more like myself again Patient Stated my medications must have gotten mixed up and caused me to sleep so long. CM/RN asked patient if anyone would be at home when she D/C to help her? Patient stated her mother and sister would be there to assist. I Medicare and medicaid Plan: D/C home with family when medically stable. No identified D/C planning needs noted at this time. CM department will continue to follow to assist with any new D/C planning needs that may arise. Marlene Morocho RN Discharge Planning/Care Management CM Discharge Assessment Start: 05/25/19 12:09 Freq: Status: Active Protocol: Document 05/25/19 12:09 (Rec: 05/25/19 12:11 [id number]) Discharge Planning Assessment Assigned Wrong Address Clerk Marlene Morocho RN DPOA/Assigned Designee Name Lashonda Sun (sister) Contact Information [phone] Advance Directives? No History Provided By Patient Has Patient been admitted in last 30 No days? Prior Living Arrangements House Household Members family Comment Lives with her twin sister Type of transporation used prior to Drives own vehicle admit Independent with ADL's Yes Is patient alert and oriented? Yes Caregiver for Another No Discharge Plan Home Referrals Initiated None needed Whiteboard Updated in Patient Room with Yes name and ext. # of Wrong Address Clerk Review Status In Process Next Review Type Continued Stay Review
--- NOTE | 2019-05-25 12:21 | PC.NURSE ---
Spoke with Dr. Woodruff via telephone regarding pt with consistent bradycardia as well as intermittent p wave inversion. Reported primary RNs assessment of stable VS and no symptoms r/t bradycardia. TORB for 12 lead EKG, CK/Trop x1, and to notified MD if HR less than 35 and/or symptomatic bradycardia.
[2019-05-25 13:18] LABS: Creatine Kinase 163 U/L (30-135)
--- NOTE | 2019-05-25 13:21 | PM.PN.1 ---
Subjective Subjective Date Patient Seen: 05/25/19 Time Patient Seen: 08:40 Interval history: Patient is a 43-year-old female admitted will late yesterday with probable hepatic encephalopathy. We had instituted low-dose medication for pain management duloxetine and after several days the patient went to bed and essentially slept septic get up and go to the bathroom for about 4 days was not clear seemed groggy to family. Was brought to the emergency room and evaluated with head scan lab work and felt to need to be admitted. Serum ammonia was 58 and her cognitive function was still quite groggy. Patient has long history of chronic cirrhosis issues that results an ongoing anemia and low platelet count. Liver enzymes and proteins are good she does not have a coagulopathy. However I think the fact that the medicine we tried which was the duloxetine is processed through the liver think it was clearly not able to be so and will not continue that medication certainly. Lactulose helped and she is on low-protein diet at this point as well. This morning patient seems more alert however today her telemetry has shown several episodes where her heart rate is dropped into the low 40s. Twelve lead EKG to be obtained and reviewed but seems like it could be a junctional rhythm at that point no coronary symptoms at all. 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 Has been 6 and half years since she had a drink. Full 14 point review of systems reviewed and negative except as above Exam Vital Signs (past 8 hours): - 05/25/19 05:30 05/25/19 05:52 05/25/19 07:51 Temperature 98.9 F 99.5 F Pulse Rate 55 L 43 L Respiratory Rate 16 18 Blood Pressure 110/59 L 127/67 Pulse Oximetry 98 98 100 05/25/19 10:42 05/25/19 11:52 Temperature 99.4 F Pulse Rate 40 L 43 L Respiratory Rate 19 Blood Pressure 133/66 139/65 Pulse Oximetry 100 Oxygen Delivery Method Room Air Oxygen Flow Rate 0 Narrative Exam Narrative: Patient is alert and in good spirits a little bit groggy still specially per family members. PE are RLA. No scleral icterus Neck without mass or adenopathy Lungs clear to auscultation percussion Cardiovascular exam shows regular rate and rhythm without murmur S3 are significant edema Abdomen nontender no mass no hepatosplenomegaly possibly trace ascites. Neuro is symmetrical and intact to sensory and motor. Skin without breakdowns rashes or lesions Psych shows patient to be in good spirits still slightly groggy. Objective Labs Result Diagrams: 05/25/19 09:25 05/25/19 09:25 Labs: Laboratory Results - last 24 hr 05/24/19 05/24/19 05/25/19 13:11 13:42 09:25 WBC RBC Hgb Hct MCV MCH MCHC RDW Plt Count Neut % (Auto) Lymph % (Auto) [place] % (Auto) Eos % (Auto) Baso % (Auto) Neut # (Auto) Lymph # (Auto) [place] # (Auto) Eos # (Auto) Baso # (Auto) Sodium 150 H Potassium 3.5 Chloride 119 H Carbon Dioxide 21 L BUN 30 H Creatinine 0.70 Estimated GFR > 60.0 BUN/Creatinine Ratio 42.9 H Glucose 105 H Calcium 9.2 Total Bilirubin 2.0 H AST 30 ALT 17 Alkaline Phosphatase 66 Ammonia 58 H Total Creatine Kinase Total Protein 7.9 Albumin 4.3 Globulin 3.6 Albumin/Globulin Ratio 1.2 U Opiates 300ng/mL cut Positive H Ur Oxycodone Screen Negative Urine Methadone Screen Negative Ur Barbiturates Screen Negative U Tricyclic Antidepress Negative Ur Phencyclidine Scrn Negative Ur Amphetamines Screen Negative U Methamphetamines Scrn Negative Ur MDMA Scrn (Ecstasy) Negative U Benzodiazepines Scrn Negative Urine Cocaine Screen Negative U Marijuana (THC) Screen Positive H 05/25/19 05/25/19 05/25/19 09:25 09:25 12:55 WBC 6.3 RBC 3.80 L Hgb 13.2 Hct 38.2 MCV 100.5 H MCH 34.6 H MCHC 34.4 RDW 15.1 H Plt Count 57 L Neut % (Auto) 76.5 H Lymph % (Auto) 18.8 L [place] % (Auto) 3.6 Eos % (Auto) 0.8 L Baso % (Auto) 0.3 Neut # (Auto) 4800 Lymph # (Auto) 1200 [place] # (Auto) 200 Eos # (Auto) 0 Baso # (Auto) 0 Sodium Potassium Chloride Carbon Dioxide BUN Creatinine Estimated GFR BUN/Creatinine Ratio Glucose Calcium Total Bilirubin AST ALT Alkaline Phosphatase Ammonia 15 Total Creatine Kinase 163 H Total Protein Albumin Globulin Albumin/Globulin Ratio U Opiates 300ng/mL cut Ur Oxycodone Screen Urine Methadone Screen Ur Barbiturates Screen U Tricyclic Antidepress Ur Phencyclidine Scrn Ur Amphetamines Screen U Methamphetamines Scrn Ur MDMA Scrn (Ecstasy) U Benzodiazepines Scrn Urine Cocaine Screen U Marijuana (THC) Screen Assessment & Plan Assessment & Plan narrative: Assessment 1. Acute hepatic encephalopathy. Resolving. Serum ammonia down to 15 following lactulose and hydration. Patient not sedated and overly sleepy like she was for the 4 days prior to admission. No evidence of fever or elevated white count no abdominal tenderness to suggest related infection. Will continue with low-protein diet and fluid administration and recheck labs for morning. Assessment 2. Hypokalemia this resolved with administration fluids and potassium rider. Will continue to monitor that for morning. Assessment 3. Dehydration think this is resolved with IV fluids as well. Assessment 4. Bradycardia on telemetry. This is asymptomatic and for patient and is and only intermittent wrist this time she is in sinus rhythm with a a quit heart rate. No vital sign abnormality other than pulse rate noted terms of blood pressure and patient is unaware when this happens completely asymptomatic. Will continue to monitor on telemetry get 12 lead and my expectation is that as patient gets further away from her encephalopathy will see this improve. Assessment 5. Cirrhosis. This is result of very heavy alcohol use and patient's younger years. There has been absolutely no alcohol consumed in the last 6-7 years. Patient does have borderline low anemia and platelet counts in the 70 range which has been chronic for her secondary to this process. Time Spent With Patient Time with patient: Greater than 35 minutes
[2019-05-25 13:31] LABS: Troponin I < 0.012 ng/mL (0.01-0.034)
[2019-05-25 13:34] LABS: CKMB % Relative Index 0.4 % (1.5-5.0); Creatine Kinase MB 0.68 ng/mL (<2.37)
[2019-05-25] MEDS: ONDANSETRON 4 MG ODT PO (14:57)
[2019-05-26] MEDS: SODIUM CHLORIDE 0.9% 1,000 ML 125 ML IV (00:11)
[2019-05-26 03:00] VITALS: O2SAT 99
[2019-05-26 05:30] VITALS: BP 126/60; PULSE 60; RESP 16; TEMP 36.8; O2SAT 98
[2019-05-26] MEDS: PANTOPRAZOLE 20 MG TABLET PO (05:46)
[2019-05-26 05:51] LABS: Add Manual Diff / Slide Review NO; Basophils Absolute Auto 0 /uL (0-100); Basophils Percent Auto 0.6 % (0-2); Eosinophils Absolute Auto 0 /uL (0-450); Eosinophils Percent Auto 0.9 % (2-4); Hematocrit 30.9 % (36-46); Lymphocytes Absolute Auto 1500 /uL (1100-4500); Lymphocytes Percent Auto 28.3 % (25-40); Mean Corpuscular HGB Conc 35.7 % (30-36); Mean Corpuscular Hemoglobin 35.6 PG (26-34); Mean Corpuscular Volume 99.8 fL (80-100); Monocytes Absolute Auto 200 /uL (0-900); Monocytes Percent Auto 4.5 % (3-14); Neutrophils Absolute Auto 3400 /uL (1500-7000); Neutrophils Percent Auto 65.7 % (50-75); Platelet Count 46 X10^3/uL (150-400); Red Cell Distribution Width 14.8 % (11.6-14.8); White Blood Cell Count 5.1 X10^3/uL (4.5-11.0)
[2019-05-26 05:59] LABS: Alanine Aminotransferase 13 IU/L (<35); Albumin 3.3 g/dL (3.5-5.0); Albumin Globulin Ratio 1.1 (1.0-2.8); Alkaline Phosphatase 48 U/L (38-126); Aspartate Aminotransferase 23 IU/L (14-36); BUN Creatinine Ratio 38.6 (6-22); Bilirubin Total 1.8 mg/dL (0.2-1.3); Blood Urea Nitrogen 27 mg/dL (7-17); Calcium 8.6 mg/dL (8.4-10.2); Carbon Dioxide 20 mmol/L (22-32); Chloride 119 mmol/L (98-107); Estimated Glomerular Filt Rate > 60.0 mL/min (>60); Globulin 2.9 g/dL (1.7-4.1); Glucose 87 mg/dL (70-100); HEMOLYSIS < 15 (0-50); Potassium 3.2 mmol/L (3.4-5.1); Sodium 145 mmol/L (137-145); Total Protein 6.2 g/dL (6.3-8.2)
--- NOTE | 2019-05-26 06:37 | PC.NURSE ---
Patient's potassium level was 3.[address] Roth telephoned, was license registration examiner for Dr. Woodruff. Dr Rain gave a verbal order for 40MEQ of Potassium NOW.
--- NOTE | 2019-05-26 06:37 | PM.DS.1 ---
History of Present Illness History of Present Illness Date Patient Seen: 05/26/19 Time Patient Seen: 06:37 Chief complaint: weak as can be/slept for 4 days Narrative: Patient is a 43-year-old female who recently started a new medication duloxetine or Cymbalta for an attempt to try to help with pain management. After several days on the medication she is went to sleep did not wake up for 4 days except a time or two to go to the bathroom. No fevers, chills, nausea, or vomiting. Did have an episode of diarrhea but no bleeding. No increased abdominal swelling, distension, fevers, or chills. She has significant alcohol history but is an absolute nondrinker for 6 years now. Does however have cirrhosis and some up hepatic insufficiency. First thought was that she might have ascites and spontaneous bacterial peritonitis or worsening liver failure and recommended that they get a serum ammonia level through ER which they did and found it to be 58. At the time I saw patient 2 hours later on the floor she was awake and speaking clearly, cognitively intact, no tenderness, and seems more like herself. Will hold sedating meds tonight and look into liver function in the morning as well as recheck her serum ammonia. Discharge Providers Provider Date of admission: 05/24/19 15:58 Discharge Date: 05/26/19 Primary care physician: Terrence Woodruff MD Discharge provider: Anum Rain MD Summary Hospital Course Discharge Diagnosis: Assessment 1. Acute hepatic encephalopathy, improved. Assessment 2. Hypokalemia, improved. Assessment 3. Dehydration, resolved. Assessment 4. Bradycardia, asymptomatic, intermittent Assessment 5. Cirrhosis with anemia and thrombocytopenia Hospital Course: Fairly uneventful. Patient received lactulose with a return to normalization of her ammonia level. She did have low potassium on admission at 2.6 that was repleted with IV potassium with normalization on hospital day 1 to 3.5. On day of discharge, her potassium is slightly low at 3.2 and she was given an oral 40 meq dose of potassium prior to discharge; she will be continued on her usual dose of home potassium upon discharge. Otherwise on day of discharge, she is afebrile with stable vital signs throughout. Plan will be to follow-up with Dr. Woodruff in 1 week, he will work on alternative forms of pain control at that visit. Patient will be discharged with her usual home medications, minus duloxetine. Time spent on Discharge and Coordination of post-hospital care: 35 minutes Status at Discharge Cognitive/behavioral status at discharge: at baseline, oriented Functional status at discharge: independent ambulation Overall status at discharge: patient is progressing back to baseline Exam Vital Signs (past 8 hours): - 05/25/19 23:00 05/25/19 23:55 05/26/19 03:00 Temperature 98.2 F Pulse Rate 50 L Respiratory Rate 16 Blood Pressure 129/99 H Pulse Oximetry 100 99 99 05/26/19 05:30 Temperature 98.2 F Pulse Rate 60 Respiratory Rate 16 Blood Pressure 126/60 Pulse Oximetry 98 Oxygen Delivery Method Room Air Oxygen Flow Rate 0 Narrative Exam Narrative: GENERAL: Alert and oriented, appearing stated age and in no acute distress. HEENT: Head normocephalic/atraumatic. LUNGS: Clear to ausculation bilaterally, no wheezes, rhonchi or rales. CV: Normal S1 and S2 with regular rate and rhythm, no audible murmurs, rubs or gallops. ABDOMEN: Soft, non-tender, non-distended, no organomegaly. Positive bowel sounds. EXTREMITIES: No clubbing, cyanosis, or edema. NEURO: Cranial nerves II through XII grossly intact, no focal deficits. PSYCH: Alert and oriented x 3. SKIN: No concerning lesions. Objective Labs Result Diagrams: 05/26/19 05:15 05/26/19 05:15 Labs: Laboratory Results - last 24 hr 05/25/19 05/25/19 05/25/19 09:25 09:25 09:25 WBC 6.3 RBC 3.80 L Hgb 13.2 Hct 38.2 MCV 100.5 H MCH 34.6 H MCHC 34.4 RDW 15.1 H Plt Count 57 L Neut % (Auto) 76.5 H Lymph % (Auto) 18.8 L [place] % (Auto) 3.6 Eos % (Auto) 0.8 L Baso % (Auto) 0.3 Neut # (Auto) 4800 Lymph # (Auto) 1200 [place] # (Auto) 200 Eos # (Auto) 0 Baso # (Auto) 0 Sodium 150 H Potassium 3.5 Chloride 119 H Carbon Dioxide 21 L BUN 30 H Creatinine 0.70 Estimated GFR > 60.0 BUN/Creatinine Ratio 42.9 H Glucose 105 H Calcium 9.2 Total Bilirubin 2.0 H AST 30 ALT 17 Alkaline Phosphatase 66 Ammonia 15 Total Creatine Kinase CK-MB (CK-2) CK-MB (CK-2) Rel Index Troponin I Total Protein 7.9 Albumin 4.3 Globulin 3.6 Albumin/Globulin Ratio 1.2 05/25/19 05/26/19 05/26/19 12:55 05:15 05:15 WBC 5.1 RBC 3.10 L Hgb 11.0 L Hct 30.9 L MCV 99.8 MCH 35.6 H MCHC 35.7 RDW 14.8 Plt Count 46 L Neut % (Auto) 65.7 Lymph % (Auto) 28.3 [place] % (Auto) 4.5 Eos % (Auto) 0.9 L Baso % (Auto) 0.6 Neut # (Auto) 3400 Lymph # (Auto) 1500 [place] # (Auto) 200 Eos # (Auto) 0 Baso # (Auto) 0 Sodium 145 Potassium 3.2 L Chloride 119 H Carbon Dioxide 20 L BUN 27 H Creatinine 0.70 Estimated GFR > 60.0 BUN/Creatinine Ratio 38.6 H Glucose 87 Calcium 8.6 Total Bilirubin 1.8 H AST 23 ALT 13 Alkaline Phosphatase 48 Ammonia Total Creatine Kinase 163 H CK-MB (CK-2) 0.68 CK-MB (CK-2) Rel Index 0.4 L Troponin I < 0.012 Total Protein 6.2 L Albumin 3.3 L Globulin 2.9 Albumin/Globulin Ratio 1.1 Discharge Plan Discharge Plan Patient Disposition: Home Discharge orders & Medications Prescriptions: Continued celecoxib 200 mg capsule 200 mg PO BID RF: 0 trazodone 50 mg tablet 50 - 100 mg PO BEDTIME PRN (Reason: Sleep) RF: 0 citalopram 20 mg tablet 20 mg PO DAILY RF: 0 hydrocodone-acetaminophen 7.5-325 mg tablet 1 tab PO Q4H PRN (Reason: pain) RF: 0 gabapentin 300 mg capsule 600 mg PO TID RF: 0 dicyclomine 10 mg capsule 20 mg PO DAILY RF: 0 potassium gluconate 595 mg (99 mg) Tablet 595 mg PO DAILY RF: 0 Discontinued duloxetine 20 mg capsule,delayed release(DR/EC) 20 mg PO DAILY RF: 0 Follow up/Referrals: Terrence Woodruff MD [Primary Care Provider] - Diet/Activity/Treatments Diet: Diet as Tolerated Activity: as tolerated Visit Report/Discharge Packet Instructions: DI for Dehydration -- Adult, DI for Hepatic Encephalopathy Discharge Data Primary Care Provider: Terrence Woodruff Discharges patient from system. Discharge Date/Time: 05/26/19 09:50
[2019-05-26 07:00] VITALS: O2SAT 98
[2019-05-26] MEDS: POTASSIUM CHLORIDE 20 MEQ TAB 40 MEQ PO (07:09)
[2019-05-26 07:35] VITALS: BP 133/65; PULSE 43; RESP 16; TEMP 36.6; O2SAT 100
--- NOTE | 2019-05-26 09:41 | PC.NURSE ---
Patient discharged home with sister Tanya. Patient was able to ambulate w/ sister at her side and walk out to the parking lot of the hospital with no issues. Discharge teaching was done, IV and Telemetry removed.
== END 2019-05-26 09:50 | disposition home or self-care (01) | DRG 443 ==
LOC: ED 15:42 → AC 15:58
PROVIDERS: Admitting Provider Family Medicine; Emergency Provider Emergency Medicine; PCP Family Medicine; Referring Provider Emergency Medicine; Visit Provider Family Medicine
DX: K71.10 Toxic liver disease with hepatic necrosis, without coma (principal); K70.30 Alcoholic cirrhosis of liver without ascites; F10.11 Alcohol abuse, in remission; E86.0 Dehydration; E87.6 Hypokalemia; R00.1 Bradycardia, unspecified; F32.9 Major depressive disorder, single episode, unspecified; G89.29 Other chronic pain; T43.215A Adverse effect of selective serotonin and norepinephrine reuptake inhibitors, initial encounter; D64.89 Other specified anemias; D69.6 Thrombocytopenia, unspecified; Z87.891 Personal history of nicotine dependence
CPT/HCPCS: 36415; 70450; 80053; 80305; 81003; 82140; 82550; 82553; 83690; 84484; 85025; 85610; 85730; 93005; 96365; 96366; 99284; J3480

== ENCOUNTER 2019-07-23 18:47 | Observation (INO) | payer MEDICARE, MEDICAID, SELFPAY ==
[2019-05-24 18:46] VITALS: BMI 19.9
[2019-07-23 18:56] VITALS: BP 141/64; PULSE 74; RESP 14; TEMP 35.8; O2SAT 99; BMI 20.7
[2019-07-23 19:21] LABS: Alanine Aminotransferase 26 IU/L (<35); Albumin 4.4 g/dL (3.5-5.0); Albumin Globulin Ratio 1.2 (1.0-2.8); Alkaline Phosphatase 62 U/L (38-126); Aspartate Aminotransferase 53 IU/L (14-36); BUN Creatinine Ratio 41.8 (6-22); Bilirubin Total 0.8 mg/dL (0.2-1.3); Blood Urea Nitrogen 46 mg/dL (7-17); Calcium 8.9 mg/dL (8.4-10.2); Carbon Dioxide 25 mmol/L (22-32); Estimated Glomerular Filt Rate 53.7 mL/min (>60); Globulin 3.6 g/dL (1.7-4.1); Glucose 224 mg/dL (70-100); Sodium 134 mmol/L (137-145)
[2019-07-23 19:22] LABS: HEMOLYSIS 89 (0-50)
[2019-07-23 19:42] LABS: Chloride 95 mmol/L (98-107); Potassium 2.3 mmol/L (3.4-5.1)
--- NOTE | 2019-07-23 19:47 | ED.RECABL ---
HPI - Recheck/Abnormal Lab/Rx General Chief Complaint: Recheck/Abnormal Lab/Rx Stated Complaint: LOW POTASSIUM Time Seen by Provider: 07/23/19 18:54 Source: patient Mode of arrival: Ambulatory Limitations: no limitations History of Present Illness HPI narrative: 43-year-old female smoker with history of heavy alcohol abuse and hepatic encephalopathy presents at the request of her primary care provider due to abnormal labs drawn this morning. The patient had routine outpatient labs drawn and potassium was noted to be quite low and she was sent here for evaluation. She denies any change in medications or diet. She feels well and denies any dizziness, weakness or lightheadedness. She has no chest pain or shortness of breath. She denies any recent nausea, vomiting or diarrhea. MD complaint: abnormal lab Initial visit (ago): hour(s) Initial visit for: other Returns today for: called because of abnormal lab/test Symptoms since prior visit: no new symptoms Context: called for abnormal lab result Associated symptoms: none Related Data Home Medications Medication Instructions Recorded Confirmed citalopram 20 mg PO DAILY 05/24/19 07/23/19 dicyclomine 20 mg PO DAILY 05/24/19 07/23/19 gabapentin 900 mg PO BID 05/24/19 07/23/19 hydrocodone-acetaminophen 1 tab PO Q4H PRN 05/24/19 07/23/19 potassium gluconate 595 mg PO DAILY 05/24/19 07/23/19 trazodone 50 - 100 mg PO BEDTIME PRN 05/24/19 07/23/19 Allergies Allergy/AdvReac Type Severity Reaction Status Date / Time duloxetine AdvReac Verified 07/23/19 23:16 Review of Systems Constitutional Constitutional: Denies chills, Denies fatigue, Denies fever(s), Denies frequent falls, Denies lethargy and Denies weakness Eyes Eyes: Denies change in vision, Denies eye discharge, Denies irritation and Denies loss of vision ENT Ears, Nose, Mouth, and Throat: Denies change in voice, Denies dizziness, Denies neck pain, Denies sore throat and Denies throat swelling Cardiovascular Cardiovascular: Denies chest pain, Denies irregular heart rhythm, Denies lightheadedness, Denies palpitations, Denies dyspnea, Denies dyspnea on exertion and Denies orthopnea Respiratory Respiratory: Denies cough, Denies dyspnea, Denies dyspnea on exertion and Denies wheezing Gastrointestinal Gastrointestinal: Denies abdominal pain, Denies change in bowel habits, Denies diarrhea, Denies nausea and Denies vomiting Genitourinary Genitourinary: Denies hematuria, Denies flank pain, Denies urinary incontinence and Denies urinary urgency Musculoskeletal Musculoskeletal: Denies back pain, Denies muscle weakness, Denies neck pain, Denies numbness and Denies tingling Integumentary/Breasts Skin/Breast: Denies pruritus, Denies erythema, Denies rash and Denies wounds Neurologic Neurologic: Denies behavioral changes, Denies confusion, Denies dizziness, Denies frequent falls, Denies loss of vision, Denies numbness, Denies tingling and Denies weakness Psychiatric Psychiatric: Denies anxiety, Denies behavioral changes, Denies confusion, Denies depression, Denies homicidal ideation and Denies suicidal ideation Endocrine Endocrine: Denies fatigue, Denies flushing and Denies palpitations Hematologic/Lymphatic Hematologic/Lymphatic: Denies easy bruising Allergic/Immunologic Allergic/Immunologic: Denies urticaria, Denies throat swelling and Denies wheezing Patient History Medical History Anxiety (Acute) Chronic high back pain (Acute) Depression (Acute) H/O ETOH abuse (Acute) Osteopenia of lumbar spine (Acute) Social History household members: family Smoking Status: Current every day smoker alcohol intake: former Smoking Status: Former smoker alcohol intake frequency: other Substance Use Type: marijuana Exam Narrative Exam Narrative: GENERAL: [43] year old patient appears stated age. Well-nourished, well-developed patient, in mild distress. HEAD: Atraumatic. Normocephalic. EYES: Pupils equal round and reactive. Extraocular motions intact. No scleral icterus. No injection or drainage. ENT: Nose without bleeding, purulent drainage. Throat without erythema, tonsillar hypertrophy or exudate. Airway patent. NECK: Trachea midline. Non tender CARDIOVASCULAR: Regular rate and rhythm without murmurs, gallops, or rubs. RESPIRATORY: Clear to auscultation. Breath sounds equal bilaterally. No wheezes, rales, or rhonchi. GASTROINTESTINAL: Abdomen soft, non-tender, nondistended. EXTREMITIES: No edema or joint tenderness. BACK: Nontender without deformity or crepitance. No flank tenderness. NEURO: AOx3. SKIN: No rash or erythema of visible areas Initial Vital Signs Initial Vital Signs: Vital Signs Temperature 96.4 F L 07/23/19 18:56 Pulse Rate 74 07/23/19 18:56 Respiratory Rate 14 07/23/19 18:56 Blood Pressure 141/64 H 07/23/19 18:56 Pulse Oximetry 99 07/23/19 18:56 Course Orders Ordered: ED Orders 07/23/19 20:45 Urine Culture Stat Urine Microscopic Stat 07/23/19 21:00 EKG-12 Lead Stat 07/24/19 05:00 Basic Metabolic Panel Stat Complete Blood Count AUTO DIFF Stat Citalopram Hydrobromide (Celexa) 20 mg PO DAILY ANTHONY Gabapentin (Neurontin) 600 mg PO TID ANTHONY Last Admin: 07/23/19 23:20 Dose: 600 mg Documented by: CAMMIE Sodium Chloride (Normal Saline 0.9%) 1,000 mls @ 125 mls/hr IV CONT ANTHONY Last Admin: 07/23/19 23:21 Dose: Not Given Documented by: CAMMIE Trazodone HCl (Desyrel) 50 mg PO BEDTIME PRN PRN Reason: Sleep Last Admin: 07/23/19 23:20 Dose: 50 mg Documented by: CAMMIE Discontinued Medications Potassium Chloride 80 meq/ (Sodium Chloride) 1,040 mls @ 130 mls/hr IV NOW ONE Stop: 07/24/19 05:00 Last Infusion: 07/23/19 22:35 Dose: 130 mls/hr Documented by: MARLY Cosigned by: KIP Admin: 07/23/19 21:49 Dose: 130 mls/hr Documented by: VERITO Cosigned by: MARLY Potassium Chloride (Potassium Chloride) 40 meq PO NOW ONE Stop: 07/23/19 21:01 Last Admin: 07/23/19 21:30 Dose: 40 meq Documented by: MARLY Vital Signs Vital signs: Vital Signs - 8 hr 07/23/19 21:43 Pulse Rate 63 Respiratory Rate 19 Blood Pressure [Right Arm] 132/73 MDM - Recheck/Abnormal Lab/Rx Lab Data Result diagrams: 07/23/19 19:03 Labs: Lab Results 07/23/19 07/23/19 07/23/19 Range/Units 19:03 19:03 20:45 Sodium 134 L (137-145) mmol/L Potassium 2.3 L* (3.4-5.1) mmol/L Chloride 95 L (98-107) mmol/L Carbon Dioxide 25 (22-32) mmol/L BUN 46 H (7-17) mg/dL Creatinine 1.10 H (0.52-1.04) mg/dL Estimated GFR 53.7 L (>60) mL/min BUN/Creatinine Ratio 41.8 H (6-22) Glucose 224 H (70-100) mg/dL Calcium 8.9 (8.4-10.2) mg/dL Magnesium 2.4 H (1.6-2.3) mg/dL Total Bilirubin 0.8 (0.2-1.3) mg/dL AST 53 H (14-36) IU/L ALT 26 (<35) IU/L Alkaline Phosphatase 62 (38-126) U/L Total Protein 8.0 (6.3-8.2) g/dL Albumin 4.4 (3.5-5.0) g/dL Globulin 3.6 (1.7-4.1) g/dL Albumin/Globulin Ratio 1.2 (1.0-2.8) Urine RBC 1-5/hpf (0-5/HPF) Urine WBC 0-1/hpf (0-5/HPF) Urine Bacteria None seen (None) Ur Culture Indicated? Specimen cultured Point of Care Testing Test Results Negative Urine Dip Bedside Urine Glucose Negative Bedside Urine Bilirubin - Negative Bedside Urine Ketone - Negative Urine Specific [place] 1.015 Bedside Urine Occult Blood +/- Bedside Urine pH 6.0 Bedside Urine Protein +/- 15 Bedside Urine Urobilinogen 1+ 2mg Bedside Urine Nitrite - Negative Bedside Urine Leukocytes +/- 15 Esterase MDM Narrative Medical decision making narrative: K rechecked and level is accurate. No obvious cause. Though patient is asymptomatic, and no EKG changes her K is critically low and puts her at risk for arrhythmia. K rider / oral K ordered, will keep overnight, monitor, recheck labs in morning. Discharge Plan Departure Patient Disposition: Admitted As Inpatient Clinical Impression: Acute hypokalemia Discharge Date/Time: 07/23/19 22:50 Admit Date/Time: 07/23/19 22:10 Admit Provider: Norberto Mccarty
[2019-07-23 20:57] LABS: Bacteria Urine None Seen
[2019-07-23 21:17] LABS: Culture Indicated Urine Specimen Cultured; RBC Urine 1-5/HPF (0-5/HPF); WBC Urine 0-1/HPF (0-5/HPF)
[2019-07-23 21:20] LABS: Magnesium 2.4 mg/dL (1.6-2.3)
[2019-07-23] MEDS: POTASSIUM CHLORIDE 20 MEQ/15 ML UDC 40 MEQ PO (21:30)
[2019-07-23 21:43] VITALS: BP 132/73; PULSE 63; RESP 19
[2019-07-23] MEDS: POTASSIUM CHLORIDE 80 MEQ in SODIUM CHLORIDE 0.9% 1,000 ML 130 ML IV (21:49)
[2019-07-23 22:34] VITALS: PULSE 63; RESP 24; O2SAT 99
[2019-07-23 22:54] VITALS: BMI 20.7
[2019-07-23 22:55] VITALS: BP 115/66; PULSE 65; RESP 20; TEMP 36.4; O2SAT 100
[2019-07-23] MEDS: GABAPENTIN 300 MG CAPSULE 600 MG PO (23:20)
[2019-07-23] MEDS: TRAZODONE 50 MG TABLET PO (23:20)
--- NOTE | 2019-07-23 23:40 | PC.NURSE ---
Patient is alert and oriented. Breath sounds CTA with RA sat of 100%. HRR; is on telemetry and was SR when in ER. Denies nausea. BT present and abdomen is soft. Voiding without dysuria, frequency or urgency. Skin in good condition. Able to turn self in bed. Is stable/steady on feet but requested she ask for assistance when out of bed due to IV/safety; verbalizes understanding. Fall risk score is low. Has chronic neuropathy in bilateral feet right > left. Denies pain. K+ rider infusing.
[2019-07-24 05:00] VITALS: BP 98/53; PULSE 76; RESP 18; TEMP 36.8; O2SAT 97
[2019-07-24] MEDS: SODIUM CHLORIDE 0.9% 1,000 ML 125 ML IV (06:52)
[2019-07-24 08:00] VITALS: BP 106/56; PULSE 68; RESP 18; TEMP 37; O2SAT 98
--- NOTE | 2019-07-24 08:07 | P.HP_ITS ---
History of Present Illness History of Present Illness Date Patient Seen: 07/24/19 Time Patient Seen: 08:07 Date of Onset of Symptoms: 07/24/19 Chief complaint: LOW POTASSIUM Narrative: Patient is a 43-year-old well known to us with history of chronic hepatic insufficiency and hypokalemia who presents with low potassium. Had labs drawn yesterday and was found to be 2.3. She was sent to the emergency room and was repeated and found to be real. Patient herself has feel well. She has had no major issue. Has not been taking her supplementations for some time or at least through the weekend. But otherwise has felt well. No nausea vomiting diarrhea. Patient has not had any significant decrease in fluid but has not been hydrating as well as she usually does. Has not been drinking. Still takes chronic narcotics for back pain. Past medical history is significant for chronic hepatic insufficiency, hypokalemia, chronic back pain, depression, smoking history, history of alcohol abuse. Past surgical history is negative. No significant family history. Patient smoker but nondrinker. Patient History Medical History Anxiety (Acute) Chronic high back pain (Acute) Depression (Acute) H/O ETOH abuse (Acute) Osteopenia of lumbar spine (Acute) Family & Social History Social History: household members family Prior Living Arrangements House Safety & Behavioral: Feels Safe in Current Yes Environment Been Physically Hurt or No Threatened By a Person Suicidal Ideation Description None Suicide Plan Description No Plan Tobacco & Substance use: Smoking Status Current every day smoker alcohol intake former alcohol intake frequency other Substance Use Type marijuana Meds Home Medications and Allergies Home Medications Medication Instructions Recorded Confirmed Type citalopram 20 mg PO DAILY 05/24/19 07/23/19 History dicyclomine 20 mg PO DAILY 05/24/19 07/23/19 History gabapentin 900 mg PO BID 05/24/19 07/23/19 History hydrocodone-acetaminophen 1 tab PO Q4H PRN 05/24/19 07/23/19 History potassium gluconate 595 mg PO DAILY 05/24/19 07/23/19 History trazodone 50 - 100 mg PO BEDTIME PRN 05/24/19 07/23/19 History Allergies Allergy/AdvReac Type Severity Reaction Status Date / Time duloxetine AdvReac Verified 07/23/19 23:16 Review of Systems Review of Systems ROS: Yes All systems reviewed with the patient and are negative except as ot herwise documented Exam Vital Signs (past 8 hours): - 07/24/19 05:00 Temperature 98.3 F Pulse Rate 76 Respiratory Rate 18 Blood Pressure 98/53 L Pulse Oximetry 97 Oxygen Delivery Method Room Air Oxygen Flow Rate 0 Narrative Exam Narrative: Alert smiling female in no acute distress. Mucous membranes moist. Neck supple without adenopathy. Lungs are clear. Heart regular rate and rhythm. Abdomen is soft positive bowel sounds nontender. Extremities without cyanosis clubbing edema. Ext neurologic exam completely n ormal. Did not ambulate. Psychologically bright alert normal. Objective Labs Result Diagrams: 07/23/19 19:03 Labs: Laboratory Results - last 24 hr 07/23/19 07/23/19 07/23/19 19:03 19:03 20:45 Sodium 134 L Potassium 2.3 L* Chloride 95 L Carbon Dioxide 25 BUN 46 H Creatinine 1.10 H Estimated GFR 53.7 L BUN/Creatinine Ratio 41.8 H Glucose 224 H Calcium 8.9 Magnesium 2.4 H Total Bilirubin 0.8 AST 53 H ALT 26 Alkaline Phosphatase 62 Total Protein 8.0 Albumin 4.4 Globulin 3.6 Albumin/Globulin Ratio 1.2 Urine RBC 1-5/hpf Urine WBC 0-1/hpf Urine Bacteria None seen Ur Culture Indicated? Specimen cultured Assessment & Plan Assessment & Plan narrative: Hypokalemia. Normal magnesium. No other definitive abnormality. Maybe just not taking her supplements but will need to follow. Workup will need to be instituted if persistent. Has previous been related to her hepatic insufficiency what to see how she responds. If normal this morning after replacement will go home on replacement. Dehydration. Mild. Probably not cause of her hypokalemia. IV hydration on going. Will discontinue 1 potassium is normal. History of hepatic insufficiency. Appears stable. History of depression. Stable. History of alcohol abuse. Currently sober. History of mid back pain. On chronic narcotics. As per primary care. Disposition. Hopeful go home today. Will see how things go. Workup as outpatient.
[2019-07-24] MEDS: GABAPENTIN 300 MG CAPSULE 600 MG PO (08:21)
[2019-07-24] MEDS: CITALOPRAM 20 MG TABLET PO (08:21)
[2019-07-24 08:25] LABS: Add Manual Diff / Slide Review NO; Basophils Absolute Auto 100 /uL (0-100); Basophils Percent Auto 1.4 % (0-2); Eosinophils Absolute Auto 100 /uL (0-450); Eosinophils Percent Auto 1.1 % (2-4); Hematocrit 32.8 % (36-46); Hemoglobin 11.7 g/dL (12.0-16.0); Lymphocytes Absolute Auto 1500 /uL (1100-4500); Lymphocytes Percent Auto 26.5 % (25-40); Mean Corpuscular HGB Conc 35.7 % (30-36); Mean Corpuscular Hemoglobin 34.8 PG (26-34); Mean Corpuscular Volume 97.5 fL (80-100); Monocytes Absolute Auto 300 /uL (0-900); Monocytes Percent Auto 6.2 % (3-14); Neutrophils Absolute Auto 3600 /uL (1500-7000); Neutrophils Percent Auto 64.8 % (50-75); Platelet Count 50 X10^3/uL (150-400); Red Blood Cell Count 3.36 X10^6/uL (4.0-5.2); Red Cell Distribution Width 13.6 % (11.6-14.8); White Blood Cell Count 5.6 X10^3/uL (4.5-11.0)
[2019-07-24 08:38] LABS: BUN Creatinine Ratio 41.8 (6-22); Blood Urea Nitrogen 28 mg/dL (7-17); Calcium 8.5 mg/dL (8.4-10.2); Carbon Dioxide 26 mmol/L (22-32); Chloride 110 mmol/L (98-107); Estimated Glomerular Filt Rate > 60.0 mL/min (>60); Glucose 91 mg/dL (70-100); HEMOLYSIS < 15 (0-50); Sodium 140 mmol/L (137-145)
--- NOTE | 2019-07-24 09:13 | CM.DANOTE ---
Discharge Planning/Care Management DCP: assessment: case received, EMR reviewed and met this morning with pt after Dr. Mccarty had been in to see her. Introduced self and role. Pt is a 43 year old female who admitted last night after labs were done and she was told by Dr. Mccarty to come to the hospital for further care. Payer: Medicare and Medicaid DCP template completed with info provided by pt. P: pt says she understands that she will likely be able to d/c home later today once her labs have been stabilized. She drove herself here and plans to drive self home. DCP team will follow prn. CM Discharge Assessment Start: 07/24/19 09:10 Freq: Status: Active Protocol: Document 07/24/19 09:11 ITV (Rec: 07/24/19 09:12 ITV [id number]) Discharge Planning Assessment Advance Directives? No History Provided By Patient,Medical Record Has Patient been admitted in last 30 No days? Comment last admit to was in 2019 Prior Living Arrangements House Household Members family Comment lives with sister Lashonda Sun Type of transportation used prior to Drives own vehicle admit Independent with ADL's Yes Is patient alert and oriented? Yes Discharge Plan Home Review Status In Process
--- NOTE | 2019-07-24 10:03 | PC.NURSE ---
Addendum entered by Halie Gipson R.N. 07/24/19 14:23: Tele unit dc'd prior to discharge Addendum entered by Halie Gipson R.N. 07/24/19 14:20: Discharge: IV dc'd intact. Reviewed all d/c instructions thoroughly with patient. Given 1X dose 40 MEQ PO K+ prior to leaving, and knows to meat pickler her new K+ and to take a second dose this evening and then BID as ordered. Has appt w/ Dr Woodruff tomorrow that she plans to keep. Verbalized understanding of d/c info and stated no further questions. All belongings collected and sent with patient, wheeled out to private vehicle by this specifications writer. Addendum entered by Halie Gipson R.N. 07/24/19 11:29: Patient continues to rest quietly in bed. This specifications writer spoke with Dr Mccarty and informed K+ with lab draw was up to 3.0. Per MD he will see patient again at lunch hour. Original Note: Lab results: Message left for Dr Mccarty at his office alerting him that this patient's lab results are in (per his request from earlier this morning). Awaiting call back. Patient is alert and oriented X3. States she feels great this morning, denies any complaints. K+ 3.0 after k-rider completed earlier this morning. Able to make needs known and calls appropriately for SBA to BR. Sleeping at this time. Call light and belongings within reach.
[2019-07-24 12:00] VITALS: BP 100/63; PULSE 73; RESP 18; TEMP 37.1; O2SAT 98
--- NOTE | 2019-07-24 14:01 | CM.DPNOTE ---
G[facility] form reviewed and signed by patients. No questions at this time.
[2019-07-24] MEDS: POTASSIUM CHLORIDE 20 MEQ TAB 40 MEQ PO (14:10)
--- NOTE | 2019-07-24 17:51 | P.DS_ITS ---
History of Present Illness History of Present Illness Chief complaint: LOW POTASSIUM Narrative: Patient is a 43-year-old well known to us with history of chronic hepatic insufficiency and hypokalemia who presents with low potassium. Had labs drawn yesterday and was found to be 2.3. She was sent to the emergency room and was repeated and found to be real. Patient herself has feel well. She has had no major issue. Has not been taking her supplementations for some time or at least through the weekend. But otherwise has felt well. No nausea vomiting diarrhea. Patient has not had any significant decrease in fluid but has not been hydrating as well as she usually does. Has not been drinking. Still takes chronic narcotics for back pain. Past medical history is significant for chronic hepatic insufficiency, hypokalemia, chronic back pain, depression, smoking history, history of alcohol abuse. Past surgical history is negative. No significant family history. Patient smoker but nondrinker. Discharge Providers Provider Date of admission: 07/23/19 22:10 Discharge Date: 07/24/19 Primary care physician: Terrence Woodruff MD Discharge provider: Norberto Mccarty MD Summary Hospital Course Discharge Diagnosis: Hypokalemia Dehydration Hepatic insufficiency History of alcohol abuse Hospital Course: Hypokalemia. Patient is admitted and given K rider plus oral replacement. Should went from 2.3 to 3 over the 24 hours. No other changes. She felt well. She is having no symptoms. Ultimately etiology of her hypokalemia was unclear. She was mildly dehydrated but not significantly. She has had previous episodes. Discussed with patient. Will be followed with her PCP tomorrow and will have blood work done. Workup for her hypokalemia would be done as an outpatient. I think okay and stable to go home. Dehydration. Mild. She was IV hydrated over the course of the short time she was in the hospital. Mucous membranes are moist she seemed to be doing well and will be followed. Hepatic insufficiency. Was stable throughout the course or admission History of alcohol abuse. Denies alcohol use. Status at Discharge Cognitive/behavioral status at discharge: oriented Functional status at discharge: independent ambulation Overall status at discharge: patient is back to baseline Exam Vital Signs (past 8 hours): - 07/24/19 12:00 Temperature 98.7 F Pulse Rate 73 Respiratory Rate 18 Blood Pressure 100/63 Pulse Oximetry 98 Oxygen Delivery Method Room Air Oxygen Flow Rate 0 Narrative Exam Narrative: Alert smiling female. Unchanged from exam done this morning please see history and physical Objective Labs Result Diagrams: 07/24/19 08:05 07/24/19 08:05 Labs: Laboratory Results - last 24 hr 07/23/19 07/23/19 07/23/19 19:03 19:03 20:45 WBC RBC Hgb Hct MCV MCH MCHC RDW Plt Count Neut % (Auto) Lymph % (Auto) [place] % (Auto) Eos % (Auto) Baso % (Auto) Neut # (Auto) Lymph # (Auto) [place] # (Auto) Eos # (Auto) Baso # (Auto) Sodium 134 L Potassium 2.3 L* Chloride 95 L Carbon Dioxide 25 BUN 46 H Creatinine 1.10 H Estimated GFR 53.7 L BUN/Creatinine Ratio 41.8 H Glucose 224 H Calcium 8.9 Magnesium 2.4 H Total Bilirubin 0.8 AST 53 H ALT 26 Alkaline Phosphatase 62 Total Protein 8.0 Albumin 4.4 Globulin 3.6 Albumin/Globulin Ratio 1.2 Urine RBC 1-5/hpf Urine WBC 0-1/hpf Urine Bacteria None seen Ur Culture Indicated? Specimen cultured 07/24/19 07/24/19 08:05 08:05 WBC 5.6 RBC 3.36 L Hgb 11.7 L Hct 32.8 L MCV 97.5 MCH 34.8 H MCHC 35.7 RDW 13.6 Plt Count 50 L Neut % (Auto) 64.8 Lymph % (Auto) 26.5 [place] % (Auto) 6.2 Eos % (Auto) 1.1 L Baso % (Auto) 1.4 Neut # (Auto) 3600 Lymph # (Auto) 1500 [place] # (Auto) 300 Eos # (Auto) 100 Baso # (Auto) 100 Sodium 140 Potassium 3.0 L Chloride 110 H Carbon Dioxide 26 BUN 28 H Creatinine 0.67 Estimated GFR > 60.0 BUN/Creatinine Ratio 41.8 H Glucose 91 D Calcium 8.5 Magnesium Total Bilirubin AST ALT Alkaline Phosphatase Total Protein Albumin Globulin Albumin/Globulin Ratio Urine RBC Urine WBC Urine Bacteria Ur Culture Indicated? Discharge Plan Discharge Plan Patient Disposition: Home Discharge orders & Medications Prescriptions: New potassium chloride [Klor-Con M20] 20 mEq Tablet,Er Particles/Crystals 40 meq PO BIDWM Qty: 60 RF: 1 Continued trazodone 50 mg tablet 50 - 100 mg PO BEDTIME PRN (Reason: Sleep) RF: 0 citalopram 20 mg tablet 20 mg PO DAILY RF: 0 hydrocodone-acetaminophen 7.5-325 mg tablet 1 tab PO Q4H PRN (Reason: pain) RF: 0 gabapentin 300 mg capsule 900 mg PO BID RF: 0 dicyclomine 10 mg capsule 20 mg PO DAILY RF: 0 Discontinued potassium gluconate 595 mg (99 mg) Tablet 595 mg PO DAILY RF: 0 Follow up/Referrals: Terrence Woodruff MD [Primary Care Provider] - 1 Day Diet/Activity/Treatments Diet: Diet as Tolerated Activity: as tolerated Skin/Wound/Dressing Care Report to your healthcare provider any signs of infection, such as:: chills, fever, night sweats and increased pain Visit Report/Discharge Packet Instructions: DI for Hypokalemia, Hypokalemia Visit Report Forms: Patient Portal/API, Stroke Signs & Symptoms Discharge Data Primary Care Provider: Terrence Woodruff Attending Provider: Norberto Mccarty Admit Date/Time: 07/23/19 22:10 Discharges patient from system. Discharge Date/Time: 07/24/19 14:24
--- NOTE | 2019-08-01 13:58 | PC.NURSE ---
Late entry: NS stopped 07/23 9105
== END 2019-07-24 14:24 | disposition home or self-care (01) ==
LOC: ED 21:08 → AC 22:11
PROVIDERS: Admitting Provider Family Medicine; Emergency Provider Emergency Medicine; PCP Family Medicine; Visit Provider Family Medicine
DX: E87.6 Hypokalemia (principal); F17.210 Nicotine dependence, cigarettes, uncomplicated; F41.9 Anxiety disorder, unspecified; E86.0 Dehydration; K72.90 Hepatic failure, unspecified without coma; F10.21 Alcohol dependence, in remission
CPT/HCPCS: 36415; 80048; 80053; 81003; 81015; 81025; 83735; 85025; 87086; 93005; 96361; 96365; 96366; 99284; G0378; J3480

== ENCOUNTER 2019-07-25 13:32 | Emergency (ER) | payer MEDICARE, MEDICAID, SELFPAY ==
--- NOTE | 2019-07-25 13:43 | DI.RAD.S_ITS ---
PROCEDURE: XR CHEST 2V INDICATIONS: shortness of breath TECHNIQUE: 2 views of the chest were acquired. COMPARISON: [facility], CHEST 1 VIEW, 07/20/2013, 6:10. [facility], CHEST 2 VIEW, 07/24/2013, 15:06. [facility], , CHEST 2 VIEW, 01/09/2014, 12:38. FINDINGS: Surgical changes and devices: None. Lungs and pleura: Generalized interstitial prominence is seen. No focal infiltrates are seen. No pleural effusions or pneumothorax. Mediastinum: Mediastinal contours are normal. Heart size is normal. Bones and chest wall: No suspicious bony abnormalities. Remote right posterior rib fractures can be seen. S-shaped scoliotic curvature is seen. Soft tissues appear unremarkable. IMPRESSION: Generalized interstitial prominence is seen, which is most compatible with pulmonary edema. Differential diagnosis includes atypical/viral infection. Please consider short-term followup examination. Dictated by: Eliel Campos M.D. on 07/25/2019 at 13:22 Approved by: Eliel Campos M.D. on 07/25/2019 at 13:23
[2019-07-25 13:49] VITALS: BP 143/74; PULSE 75; RESP 29; TEMP 36.8; O2SAT 87; BMI 10.1
[2019-07-25 13:54] LABS: Add Manual Diff / Slide Review NO; Basophils Absolute Auto 0 /uL (0-100); Basophils Percent Auto 0.3 % (0-2); Eosinophils Absolute Auto 100 /uL (0-450); Eosinophils Percent Auto 0.6 % (2-4); Hematocrit 37.9 % (36-46); Hemoglobin 13.1 g/dL (12.0-16.0); Lymphocytes Absolute Auto 1600 /uL (1100-4500); Lymphocytes Percent Auto 17.7 % (25-40); Mean Corpuscular HGB Conc 34.7 % (30-36); Mean Corpuscular Hemoglobin 34.4 PG (26-34); Mean Corpuscular Volume 99.2 fL (80-100); Monocytes Absolute Auto 400 /uL (0-900); Neutrophils Absolute Auto 6900 /uL (1500-7000); Neutrophils Percent Auto 77.4 % (50-75); Platelet Count 59 X10^3/uL (150-400); Red Blood Cell Count 3.82 X10^6/uL (4.0-5.2); Red Cell Distribution Width 14.1 % (11.6-14.8)
[2019-07-25] MEDS: ALBUTEROL 2.5 MG/3 ML NEB (ADULT) INH (13:56)
[2019-07-25] MEDS: ALBUTEROL/IPRATROPIUM 3 ML AMPUL INH (13:58)
[2019-07-25 13:59] VITALS: PULSE 74; O2SAT 99
[2019-07-25 14:00] LABS: INR 1.2 (0.9-1.3); Prothrombin Time 13.5 SECONDS (10.1-12.7)
[2019-07-25] MEDS: methylPREDNISolone 125 MG/2 ML VIAL IV (14:00)
[2019-07-25 14:04] LABS: Alanine Aminotransferase 39 IU/L (<35); Albumin 4.2 g/dL (3.5-5.0); Albumin Globulin Ratio 1.2 (1.0-2.8); Alkaline Phosphatase 75 U/L (38-126); Aspartate Aminotransferase 62 IU/L (14-36); BUN Creatinine Ratio 31.7 (6-22); Bilirubin Total 0.9 mg/dL (0.2-1.3); Blood Urea Nitrogen 20 mg/dL (7-17); Calcium 9.5 mg/dL (8.4-10.2); Carbon Dioxide 21 mmol/L (22-32); Chloride 112 mmol/L (98-107); Estimated Glomerular Filt Rate > 60.0 mL/min (>60); Globulin 3.5 g/dL (1.7-4.1); Glucose 109 mg/dL (70-100); HEMOLYSIS < 15 (0-50); Potassium 3.4 mmol/L (3.4-5.1); Sodium 143 mmol/L (137-145); Total Protein 7.7 g/dL (6.3-8.2)
[2019-07-25 14:05] LABS: Creatine Kinase 165 U/L (30-135)
--- NOTE | 2019-07-25 14:12 | PC.NURSE ---
placed pt on 2LNC upon arrival to ER. pt reports breathing better after receiving a respiratory treatment. pt is now on RA sats 96
[2019-07-25 14:13] LABS: NT-proBNP (BNP-Adult 18+) 1540 pg/mL (<125)
[2019-07-25 14:17] LABS: Troponin I < 0.012 ng/mL (0.01-0.034)
[2019-07-25 14:23] LABS: Acetaminophen < 10 ug/mL (10-30); Alanine Aminotransferase 38 IU/L (<35); Albumin 4.2 g/dL (3.5-5.0); Albumin Globulin Ratio 1.3 (1.0-2.8); Alkaline Phosphatase 74 U/L (38-126); Aspartate Aminotransferase 60 IU/L (14-36); Bilirubin Unconjugated 0.8 mg/dL (0.0-1.1); Globulin 3.3 g/dL (1.7-4.1); HEMOLYSIS < 15 (0-50); Total Protein 7.5 g/dL (6.3-8.2)
[2019-07-25 14:27] VITALS: BP 143/73; PULSE 68; RESP 24; O2SAT 22
[2019-07-25 14:32] LABS: CKMB % Relative Index 0.9 % (1.5-5.0); Creatine Kinase MB 1.44 ng/mL (<2.37)
[2019-07-25 14:58] LABS: Ammonia (NH3) 14 umol/L (9-30); Lactate (Lactic Acid) 3.1 mmol/L (0.7-2.1)
[2019-07-25 15:05] VITALS: BP 127/69; PULSE 71; RESP 21; O2SAT 96
--- NOTE | 2019-07-25 15:19 | ED_ITS ---
HPI - SOB/Dyspnea General Chief Complaint: Shortness of Breath/Dyspnea Stated Complaint: chemical burn Time Seen by Provider: 07/25/19 13:56 Source: patient Mode of arrival: Family Vehicle Limitations: no limitations History of Present Illness HPI Narrative: HPI: The patient is a 43-year-old female who was brought into the emergency department today by ambulance because she developed the sudden onset of wheezing and shortness of breath and bronchospasm after she was cleaning and mixed toilet bowl acid tank cleaner with bleach. The patient denies a history of asthma COPD myocardial infarction or diabetes mellitus. She immediately breathed the fumes and became very short of breath coughing and wheezing associated with chest pain on coughing and a burning chest discomfort. She became diaphoretic. She could not stop coughing. She called the ambulance and was brought into the emergency department. The patient arms smokes marijuana on a daily basis she admits to being a alcoholic that has been alcohol free for 6 and half years. She does smoke cigarettes. He denies any fever chills sweats headache. She is not having any chest pain at the time that I am seeing the patient. She has had no abdominal pain nausea vomiting diarrhea melena or hematochezia and she has had no urinary symptoms. Dr. Woodruff the patient's physician called instead that she was seen yesterday and requested that we check a potassium level as well as liver function tests Tylenol and ammonia. I added the lactate which was slightly high. Related Data Home Medications Medication Instructions Recorded Confirmed citalopram 20 mg PO DAILY 05/24/19 07/23/19 dicyclomine 20 mg PO DAILY 05/24/19 07/23/19 gabapentin 900 mg PO BID 05/24/19 07/23/19 hydrocodone-acetaminophen 1 tab PO Q4H PRN 05/24/19 07/23/19 trazodone 50 - 100 mg PO BEDTIME PRN 05/24/19 07/23/19 Previous Rx's Medication Instructions Recorded potassium chloride [Klor-Con M20] 40 meq PO BIDWM #60 tab 07/24/19 albuterol sulfate 2 puff INHALATION Q4-6H PRN #8.5 07/25/19 gram prednisone 40 mg PO DAILY #10 tab 07/25/19 Allergies Allergy/AdvReac Type Severity Reaction Status Date / Time duloxetine AdvReac Verified 07/25/19 14:00 Review of Systems Review of Systems Narrative: Her review of systems were all negative except for those mentioned in the history of present illness Patient History Medical History Anxiety (Acute) Chronic high back pain (Acute) Depression (Acute) H/O ETOH abuse (Acute) Osteopenia of lumbar spine (Acute) Social History household members: family Smoking Status: Current every day smoker alcohol intake: former Smoking Status: Current every day smoker alcohol intake frequency: other Substance Use Type: marijuana Exam Narrative Exam Narrative: PHYSICAL EXAM: CONSTITUTIONAL: Awake, Alert, Oriented, Coherent, Cooperative in mild to moderate respiratory distress wheezing and tachypneic but smiling. HEAD: AT/NC EENT: PERRL, FROM of eyes, no discharge, NOSE:No epistaxis or nasal drainage MOUTH:Oral mucosa is moist and pink, posterior pharynx is without erythema or exudate. NECK: Supple, no obvious JVD, Trachea is midline without stridor, no palpable LN. SPINE: Palpation of the cervical, Thoracic, Lumbar or Sacral spine reveals no gross deformity or tenderness. No CVA tenderness. THORAX: No deformity, retractions, chest wall tenderness. Patient has increased AP chest wall diameter LUNGS: Breath sounds are symmetrical in decreased but arm a few expiratory wheezes. I listened after she had been receiving her duoneb treatment HEART: Normal heart tones, regular rhythm and rate without murmur. ABDOMEN: Soft, non-tender, normal bowel sounds without guarding, rebound, rigidity liver edge right upper quadrant palpable LYMPHATIC: no palpable lymph nodes or spleen. EXTREMITIES: No edema, deformity, tenderness or cyanosis. SKIN: No rash, bruising, petechiae or purpura. NEURO: Awake, alert, oriented, conversive, cranial nerves II-XII are symmetrical , moves all 4 extremities and is ambulatory. Initial Vital Signs Initial Vital Signs: Vital Signs Temperature 98.3 F 07/25/19 13:49 Pulse Rate 75 07/25/19 13:49 Respiratory Rate 29 H 07/25/19 13:49 Blood Pressure 143/74 H 07/25/19 13:49 Pulse Oximetry 87 L 07/25/19 13:49 Course Course Course Narrative: 1529: The patient feels much better and feels well enough that she can go home. On re-examination she has a few expiratory wheezes posteriorly. Her lactic acid was elevated at 3.1. The patient has had no fever. She was instructed to drink 2-3 L of fluid per day for the next 2-3 days and to follow-up with her primary care physician to be re-evaluated in 2 days. She will be discharged home on prednisone 40 mg per day for the next 5 days and an albuterol inhaler Orders Ordered: Discontinued Medications Albuterol (Ventolin) 2.5 mg INH NOW ONE Stop: 07/25/19 13:44 Last Admin: 07/25/19 13:56 Dose: 2.5 mg Documented by: ELHAM Albuterol/Ipratropium (Duoneb) 3 ml INH NOW ONE Stop: 07/25/19 13:56 Last Admin: 07/25/19 13:58 Dose: 3 ml Documented by: ELHAM Ipratropium Sharon (Atrovent Neb) 0.5 mg INH NOW ONE Stop: 07/25/19 13:44 Methylprednisolone (Solu-Medrol 125 Mg Vial) 125 mg IV NOW ONE Stop: 07/25/19 13:45 Last Admin: 07/25/19 14:00 Dose: 125 mg Documented by: ALTON Potassium Chloride (Potassium Chloride) 40 meq PO NOW ONE Stop: 07/25/19 15:24 Vital Signs Vital signs: Vital Signs - 8 hr 07/25/19 13:49 07/25/19 13:59 07/25/19 14:27 Temperature 98.3 F Pulse Rate 75 74 68 Respiratory Rate 29 H 24 Blood Pressure 143/74 H Blood Pressure [Left Arm] 143/73 H Pulse Oximetry 87 L 99 22 L 07/25/19 15:05 Temperature Pulse Rate 71 Respiratory Rate 21 Blood Pressure Blood Pressure [Left Arm] 127/69 Pulse Oximetry 96 MDM - SOB/Dyspnea Medical Records Attestation: I reviewed the patient's medical records. Lab Data Attestation: I reviewed the patient's lab results. Result diagrams: 07/25/19 13:44 07/25/19 13:44 Labs: Lab Results 07/25/19 07/25/19 07/25/19 Range/Units 13:44 13:44 13:44 WBC 9.0 D (4.5-11.0) X10^3/uL RBC 3.82 L (4.0-5.2) X10^6/uL Hgb 13.1 (12.0-16.0) g/dL Hct 37.9 (36-46) % MCV 99.2 (80-100) fL MCH 34.4 H (26-34) PG MCHC 34.7 (30-36) % RDW 14.1 (11.6-14.8) % Plt Count 59 L (150-400) X10^3/uL Neut % (Auto) 77.4 H (50-75) % Lymph % (Auto) 17.7 L (25-40) % [place] % (Auto) 4.0 (3-14) % Eos % (Auto) 0.6 L (2-4) % Baso % (Auto) 0.3 (0-2) % Neut # (Auto) 6900 (9227-7794) /uL Lymph # (Auto) 1600 (2117-2271) /uL [place] # (Auto) 400 (0-900) /uL Eos # (Auto) 100 (0-450) /uL Baso # (Auto) 0 (0-100) /uL PT 13.5 H (10.1-12.7) SECONDS INR 1.2 (0.9-1.3) Sodium 143 (137-145) mmol/L Potassium 3.4 (3.4-5.1) mmol/L Chloride 112 H (98-107) mmol/L Carbon Dioxide 21 L (22-32) mmol/L BUN 20 H (7-17) mg/dL Creatinine 0.63 (0.52-1.04) mg/dL Estimated GFR > 60.0 (>60) mL/min BUN/Creatinine Ratio 31.7 H (6-22) Glucose 109 H (70-100) mg/dL Lactate (0.7-2.1) mmol/L Calcium 9.5 (8.4-10.2) mg/dL Total Bilirubin 0.9 (0.2-1.3) mg/dL Conjugated Bilirubin (0.0-0.3) md/dL Unconjugated Bilirubin (0.0-1.1) mg/dL AST 62 H (14-36) IU/L ALT 39 H (<35) IU/L Alkaline Phosphatase 75 (38-126) U/L Ammonia (9-30) umol/L Total Creatine Kinase (30-135) U/L CK-MB (CK-2) (<2.37) ng/mL CK-MB (CK-2) Rel Index (1.5-5.0) % Troponin I (0.01-0.034) ng/mL NT-Pro-B Natriuret Pep 1540 H (<125) pg/mL Total Protein 7.7 (6.3-8.2) g/dL Albumin 4.2 (3.5-5.0) g/dL Globulin 3.5 (1.7-4.1) g/dL Albumin/Globulin Ratio 1.2 (1.0-2.8) Acetaminophen (10-30) ug/mL 07/25/19 07/25/19 07/25/19 Range/Units 13:44 13:45 14:27 WBC (4.5-11.0) X10^3/uL RBC (4.0-5.2) X10^6/uL Hgb (12.0-16.0) g/dL Hct (36-46) % MCV (80-100) fL MCH (26-34) PG MCHC (30-36) % RDW (11.6-14.8) % Plt Count (150-400) X10^3/uL Neut % (Auto) (50-75) % Lymph % (Auto) (25-40) % [place] % (Auto) (3-14) % Eos % (Auto) (2-4) % Baso % (Auto) (0-2) % Neut # (Auto) (7040-8212) /uL Lymph # (Auto) (8632-6859) /uL [place] # (Auto) (0-900) /uL Eos # (Auto) (0-450) /uL Baso # (Auto) (0-100) /uL PT (10.1-12.7) SECONDS INR (0.9-1.3) Sodium (137-145) mmol/L Potassium (3.4-5.1) mmol/L Chloride (98-107) mmol/L Carbon Dioxide (22-32) mmol/L BUN (7-17) mg/dL Creatinine (0.52-1.04) mg/dL Estimated GFR (>60) mL/min BUN/Creatinine Ratio (6-22) Glucose (70-100) mg/dL Lactate 3.1 H (0.7-2.1) mmol/L Calcium (8.4-10.2) mg/dL Total Bilirubin 1.0 (0.2-1.3) mg/dL Conjugated Bilirubin 0.0 (0.0-0.3) md/dL Unconjugated Bilirubin 0.8 (0.0-1.1) mg/dL AST 60 H (14-36) IU/L ALT 38 H (<35) IU/L Alkaline Phosphatase 74 (38-126) U/L Ammonia (9-30) umol/L Total Creatine Kinase 165 H (30-135) U/L CK-MB (CK-2) 1.44 (<2.37) ng/mL CK-MB (CK-2) Rel Index 0.9 L (1.5-5.0) % Troponin I < 0.012 (0.01-0.034) ng/mL NT-Pro-B Natriuret Pep (<125) pg/mL Total Protein 7.5 (6.3-8.2) g/dL Albumin 4.2 (3.5-5.0) g/dL Globulin 3.3 (1.7-4.1) g/dL Albumin/Globulin Ratio 1.3 (1.0-2.8) Acetaminophen < 10 L (10-30) ug/mL 07/25/19 Range/Units 14:27 WBC (4.5-11.0) X10^3/uL RBC (4.0-5.2) X10^6/uL Hgb (12.0-16.0) g/dL Hct (36-46) % MCV (80-100) fL MCH (26-34) PG MCHC (30-36) % RDW (11.6-14.8) % Plt Count (150-400) X10^3/uL Neut % (Auto) (50-75) % Lymph % (Auto) (25-40) % [place] % (Auto) (3-14) % Eos % (Auto) (2-4) % Baso % (Auto) (0-2) % Neut # (Auto) (2217-3338) /uL Lymph # (Auto) (9103-3726) /uL [place] # (Auto) (0-900) /uL Eos # (Auto) (0-450) /uL Baso # (Auto) (0-100) /uL PT (10.1-12.7) SECONDS INR (0.9-1.3) Sodium (137-145) mmol/L Potassium (3.4-5.1) mmol/L Chloride (98-107) mmol/L Carbon Dioxide (22-32) mmol/L BUN (7-17) mg/dL Creatinine (0.52-1.04) mg/dL Estimated GFR (>60) mL/min BUN/Creatinine Ratio (6-22) Glucose (70-100) mg/dL Lactate (0.7-2.1) mmol/L Calcium (8.4-10.2) mg/dL Total Bilirubin (0.2-1.3) mg/dL Conjugated Bilirubin (0.0-0.3) md/dL Unconjugated Bilirubin (0.0-1.1) mg/dL AST (14-36) IU/L ALT (<35) IU/L Alkaline Phosphatase (38-126) U/L Ammonia 14 (9-30) umol/L Total Creatine Kinase (30-135) U/L CK-MB (CK-2) (<2.37) ng/mL CK-MB (CK-2) Rel Index (1.5-5.0) % Troponin I (0.01-0.034) ng/mL NT-Pro-B Natriuret Pep (<125) pg/mL Total Protein (6.3-8.2) g/dL Albumin (3.5-5.0) g/dL Globulin (1.7-4.1) g/dL Albumin/Globulin Ratio (1.0-2.8) Acetaminophen (10-30) ug/mL ECG Data Attestation: I personally reviewed and interpreted this ECG as follows: Interpretation: The patient's EKG obtained at 13:5 3:48 a.m. revealed a ventricular rate of 70 to sinus rhythm normal intervals QTC is slightly prolonged at 470 milliseconds axis is normal. She has a QS wave in V1 with inverted T-waves in V1. The T-waves throughout the rest of the EKG are within normal limits without any acute diagnostic ST segment changes. The EKG appears normal. Discharge Plan Departure Patient Disposition: Home Clinical Impression: Shortness of Breath, Acute dyspnea, Acute bronchospasm Discharge Date/Time: 07/25/19 16:10 Instructions: DI for Cough -- Adult, DI for Shortness of Breath Activity Restrictions/Additional Instructions: 1. Follow-up in be re-evaluated by your primary care physician within next 48-72 hours. 2. If you develop worsening shortness of breath wheezing and difficulty in breathing, rapid heart rate, feeling faint, developing chest pain you need to return to the emergency department. 3. Drink 2-3 L of fluid per day for the next 3 days. Be sure to take your potassium as prescribed. 4. You can take 1-2 puffs of your albuterol inhaler with spacer every 2-4 hours as needed for wheezing cough and shortness of breath 5. Use the prednisone as prescribed for the next 5 days. Prescriptions: New albuterol sulfate 90 mcg/actuation HFA aerosol inhaler 2 puff INHALATION Q4-6H PRN (Reason: shortness of breath or wheezing) Qty: 8.5 RF: 0 prednisone 20 mg tablet 40 mg PO DAILY Qty: 10 RF: 0 No Action potassium chloride [Klor-Con M20] 20 mEq Tablet,Er Particles/Crystals 40 meq PO BIDWM Qty: 60 RF: 1 trazodone 50 mg tablet 50 - 100 mg PO BEDTIME PRN (Reason: Sleep) RF: 0 citalopram 20 mg tablet 20 mg PO DAILY RF: 0 hydrocodone-acetaminophen 7.5-325 mg tablet 1 tab PO Q4H PRN (Reason: pain) RF: 0 gabapentin 300 mg capsule 900 mg PO BID RF: 0 dicyclomine 10 mg capsule 20 mg PO DAILY RF: 0 Referrals: Terrence Woodruff MD [Primary Care Provider] -
[2019-07-25 16:32] LABS: Reflexed Lactate in 2 Hours Y
== END 2019-07-25 16:10 | disposition home or self-care (01) ==
PROVIDERS: Emergency Provider Emergency Medicine; PCP Family Medicine
DX: R06.02 Shortness of breath (principal); R06.00 Dyspnea, unspecified; J98.01 Acute bronchospasm; T54.91XA Toxic effect of unspecified corrosive substance, accidental (unintentional), initial encounter
CPT/HCPCS: 36415; 71046; 80053; 80076; 80329; 82140; 82550; 82553; 83605; 83880; 84484; 85025; 85610; 93005; 94640; 96374; 99284; G0480; J2930; J7613

== ENCOUNTER 2019-09-26 07:14 | Emergency (ER) | payer MEDICARE, MEDICAID, SELFPAY ==
[2019-09-26 07:20] VITALS: BP 109/60; PULSE 70; RESP 18; TEMP 36.5; O2SAT 100; BMI 21.4
--- NOTE | 2019-09-26 07:42 | DI.RAD.S_ITS ---
PROCEDURE: XR HIP W PEL IF DONE LT 2V INDICATIONS: left hip pain when bearing weight TECHNIQUE: AP pelvis with lateral view(s) of the left hip(s). COMPARISON: None. FINDINGS: Bones: Fracture of the left pubic body. Lower lumbar spondylosis. Mild bilateral hip joint degeneration. Soft tissues: Multiple densities projecting in the midline pelvis, some of which may be pill fragments although technically indeterminate recommend clinical correlation to exclude ingested foreign body IMPRESSION: Left pubic body fracture. Additional chronic and incidental findings as above. Dictated by: Kam aBrton M.D. on 09/26/2019 at 8:27 Approved by: Kam Barton M.D. on 09/26/2019 at 8:30
--- NOTE | 2019-09-26 07:47 | ED_ITS ---
HPI - Extremity Injury (Lower) General Chief Complaint: Extremity Injury, Lower Stated Complaint: Left hip dislocated last night Time Seen by Provider: 09/26/19 07:45 Source: patient Mode of arrival: Wheelchair Limitations: physical limitation History of Present Illness HPI Narrative: Who presents with left hip pain. She was walking last evening is when a nail caught her sock and she fell onto her left side. Hurts to walk. She feels like her hip is dislocated. No other injury. complaint: hip injury Onset (ago): hour(s) Related Data Home Medications Medication Instructions Recorded Confirmed citalopram 20 mg PO DAILY 05/24/19 07/23/19 dicyclomine 20 mg PO DAILY 05/24/19 07/23/19 gabapentin 900 mg PO BID 05/24/19 07/23/19 hydrocodone-acetaminophen 1 tab PO Q4H PRN 05/24/19 07/23/19 trazodone 50 - 100 mg PO BEDTIME PRN 05/24/19 07/23/19 Previous Rx's Medication Instructions Recorded potassium chloride [Klor-Con M20] 40 meq PO BIDWM #60 tab 07/24/19 albuterol sulfate 2 puff INHALATION Q4-6H PRN #8.5 07/25/19 gram prednisone 40 mg PO DAILY #10 tab 07/25/19 Allergies Allergy/AdvReac Type Severity Reaction Status Date / Time duloxetine AdvReac Verified 07/25/19 14:00 Review of Systems Review of Systems Narrative: GENERAL: Denies chills,fever HEENT: Denies throat pain RESPIRATORY: Denies dyspnea, cough, wheezing CARDIOVASCULAR: Denies chest pain, palpitations GASTROINTESTINAL: Denies nausea, vomiting MUSCULOSKELETAL: See HPI SKIN: No rash, no laceration, no pruritus NEUROLOGIC: Denies weakness, dizziness, headache, numbness 8 point review of systems is negative except for those stated above and HPI Patient History Medical History Anxiety (Acute) Chronic high back pain (Acute) Depression (Acute) H/O ETOH abuse (Acute) Osteopenia of lumbar spine (Acute) Social History household members: family Smoking Status: Current every day smoker alcohol intake: former Smoking Status: Current every day smoker tobacco type: cigarettes alcohol intake frequency: other Substance Use Type: marijuana Exam Initial Vital Signs Initial Vital Signs: Vital Signs Temperature 97.7 F 09/26/19 07:20 Pulse Rate 70 09/26/19 07:20 Respiratory Rate 18 09/26/19 07:20 Blood Pressure 109/60 09/26/19 07:20 Pulse Oximetry 100 09/26/19 07:20 GENERAL: Well-appearing, well-nourished and in no acute distress. CARDIOVASCULAR: peripheral pulses in tact, cap refill <2 sec RESPIRATORY: No respiratory distress, speaks in full sentences without difficulty EXTREMITIES: Normal range of motion, no clubbing or edema. Neurovascularly intact Left lower extremity full internal and external rotation of hip hip itself is actually nontender she does have some pain along her pubic symphysis. Pelvis is stable NEUROLOGICAL: Cranial nerves II through XII grossly intact. Normal gait and speech. SKIN: Warm, dry, no petechiae, no rashes or lesions. Course Orders Ordered: ED Orders 09/26/19 07:42 XR hip w pel if done LT 2V Stat Vital Signs Vital signs: Vital Signs - 8 hr 09/26/19 07:20 09/26/19 09:42 Temperature 97.7 F Pulse Rate 70 63 Respiratory Rate 18 16 Blood Pressure 109/60 117/66 Pulse Oximetry 100 100 [facility] - Extremity Injury (Lower) Imaging Data Extremity x-ray #1: Radiologist's Impression: PROCEDURE: XR HIP W PEL IF DONE LT 2V INDICATIONS: left hip pain when bearing weight TECHNIQUE: AP pelvis with lateral view(s) of the left hip(s). COMPARISON: None. FINDINGS: Bones: Fracture of the left pubic body. Lower lumbar spondylosis. Mild bilateral hip joint degeneration. Soft tissues: Multiple densities projecting in the midline pelvis, some of which may be pill fragments although technically indeterminate recommend clinical correlation to exclude ingested foreign body IMPRESSION: Left pubic body fracture. Additional chronic and incidental findings as above. Dictated by: Kam Barton M.D. on 09/26/2019 at 8:27 MDM Narrative Medical decision making narrative: Discussed case with Dr. Leal orthopedics who recommends outpatient follow-up weight bear as tolerated calcium and vitamin-D supplements. Patient states that she has crutches and pain medication at home. Discharge Plan Departure Patient Disposition: Home Clinical Impression: Fracture of left superior pubic ramus Qualifiers: Encounter type: initial encounter Fracture type: closed Qualified Code(s): S32.512A - Fracture of superior rim of left pubis, initial encounter for closed fracture Discharge Date/Time: 09/26/19 09:20 Instructions: Pelvic Fracture Activity Restrictions/Additional Instructions: *You have been diagnosed with pelvic fracture *What to do: Weightbear as tolerated recommend using crutches or walker. You should also be taking calcium and vitamin D to help promote bone healing. Avoid ibuprofen. *Continue to take medications as directed Take your pain medications as previously prescribed *Follow up with your primary care provider in 2-3 days, *Return to ER if you should have increasing pain weakness numbness or tingling or any new, worsening or concerning symptoms Prescriptions: No Action potassium chloride [Klor-Con M20] 20 mEq Tablet,Er Particles/Crystals 40 meq PO BIDWM Qty: 60 RF: 1 albuterol sulfate 90 mcg/actuation HFA aerosol inhaler 2 puff INHALATION Q4-6H PRN (Reason: shortness of breath or wheezing) Qty: 8.5 RF: 0 prednisone 20 mg tablet 40 mg PO DAILY Qty: 10 RF: 0 trazodone 50 mg tablet 50 - 100 mg PO BEDTIME PRN (Reason: Sleep) RF: 0 citalopram 20 mg tablet 20 mg PO DAILY RF: 0 hydrocodone-acetaminophen 7.5-325 mg tablet 1 tab PO Q4H PRN (Reason: pain) RF: 0 gabapentin 300 mg capsule 900 mg PO BID RF: 0 dicyclomine 10 mg capsule 20 mg PO DAILY RF: 0 Referrals: [facility] [Provider Group] Terrence Woodruff MD [Primary Care Provider] -
[2019-09-26 09:42] VITALS: BP 117/66; PULSE 63; RESP 16; O2SAT 100
== END 2019-09-26 09:20 | disposition home or self-care (01) ==
PROVIDERS: Emergency Provider Emergency Medicine; PCP Family Medicine
DX: S32.512A Fracture of superior rim of left pubis, initial encounter for closed fracture (principal); W19.XXXA Unspecified fall, initial encounter
CPT/HCPCS: 73502; 99283

== ENCOUNTER → 2019-10-10 10:01 | Outpatient (CLI) | payer MEDICARE, MEDICAID, SELFPAY ==
--- NOTE | 2019-10-10 | DI.NM.S_ITS ---
PROCEDURE: [place] BONE SCAN WHOLE BODY RADIOPHARMACEUTICAL: 19.9 mCi Tc-99m MDP IV. INDICATIONS: Sacroiliitis, not elsewhere classified TECHNIQUE: Delayed whole-body scintigrams were obtained approximately 3-4 hours after intravenous injection of radiotracer. Anterior and posterior views were acquired from vertex to feet. Additional left and right oblique views of the pelvis were obtained. COMPARISON: [facility], [place], [place] BONE SCAN WHOLE BODY, 08/11/2018, 13:01. [facility], [place], XR LUMBAR SPINE 2-3V, 05/04/2019, 13:31. [facility], [place], XR HIP W PEL IF DONE LT 2V, 09/26/2019, 7:37. FINDINGS: Asymmetric uptake in the right sacroiliac joint T on last bone scan is resolved. Mild symmetrical increased uptake at the SI joints is most likely secondary to early arthritic change. There is increased uptake in the right side of L4 area, new since the last bone scan. No lesions are identified in skull, sternum, clavicles, scapulae, ribs, bony pelvis, and visualized shafts of the long bones. Mild scoliosis fish There is low level increased uptake in cervical, thoracic and lumbar spine with distribution indistinguishable from degenerative disc and facet disease; early metastasis to spine could be obscured by degenerative changes. There are foci of increased periarticular activity involving shoulders, sternoclavicular joints, elbows, wrists, hands, hips, SI joints, ankles and feet, compatible with degenerative/arthritic changes. IMPRESSION: 1. Asymmetric uptake in the right sacroiliac joint T on last bone scan is resolved. 2. Increased uptake in the right side of L4 area, new since the last bone scan. Recommend radiographic correlation. 3. Degenerative changes as described. Dictated by: Issac Armijo M.D. on 10/10/2019 at 17:14 Approved by: Issac Armijo M.D. on 10/10/2019 at 17:41
== END ==
PROVIDERS: PCP Family Medicine; Referring Provider Family Medicine; Visit Provider Family Medicine
DX: M46.1 Sacroiliitis, not elsewhere classified (principal)
CPT/HCPCS: 78306; A9503

== ENCOUNTER → 2019-10-19 12:21 | Outpatient (CLI) | payer MEDICARE, MEDICAID, SELFPAY ==
--- NOTE | 2019-10-19 | DI.RAD.S_ITS ---
PROCEDURE: XR LUMBAR SPINE 2-3V INDICATIONS: BACK PAIN TECHNIQUE: 2 views of the lumbar spine were acquired. COMPARISON: [facility], [place], XR LUMBAR SPINE 2-3V, 05/04/2019, 13:31. [facility], [place], L-SPINE 2-3 VIEWS, 09/10/2014, 11:47. FINDINGS: Bones: 5 [id number] vertebrae are present. There is five levo scoliotic bony alignment centered at L3. No vertebral body compression fractures. No suspicious bony lesions. Soft tissues: Overlying bowel gas pattern is normal. No suspicious soft tissue calcifications. IMPRESSION: No trauma found, no subluxation seen. Moderate convex leftward scoliosis centered at L3, no compression fracture found. Dictated by: Je Garcia M.D. on 10/19/2019 at 14:21 Approved by: Je Garcia M.D. on 10/19/2019 at 14:22
== END ==
PROVIDERS: PCP Family Medicine; Referring Provider Family Medicine; Visit Provider Family Medicine
DX: M54.9 Dorsalgia, unspecified (principal); M41.86 Other forms of scoliosis, lumbar region
CPT/HCPCS: 72100

== ENCOUNTER → 2020-06-11 07:07 | Outpatient (CLI) | payer MEDICARE, MEDICAID, SELFPAY ==
[2020-04-23 15:39] VITALS: BMI 20.7
--- NOTE | 2020-06-11 07:09 | DI.MRI.S_ITS ---
PROCEDURE: MR LUMBAR SPINE WO CON INDICATIONS: History of sacral fracture lumbar facet arthropathy TECHNIQUE: Noncontrast sagittal T1 spin echo and T2 fast echo, sagittal STIR, axial T1 and T2 fast spin echo through the lumbar spine. In cases with scoliosis, additional coronal T2 fast spin echo may be performed. COMPARISON: [facility], MR, MR LUMBAR SPINE WO CON, 08/07/2018, 18:55. [facility], CR, XR LUMBAR SPINE 2-3V, 10/19/2019, 12:55. [facility], [place], [place] BONE SCAN WHOLE BODY, 10/10/2019, 13:31. [facility], [place], XR SACRUM COCCYX MIN 2V, 05/04/2019, 13:31. FINDINGS: Image quality: Excellent. Alignment and Curvature: There is normal bony alignment. Convex left scoliosis. Bone Marrow: Reactive endplate changes noted adjacent to the L3-L4 and L5-S1 disc. Large Schmorl's node noted in the superior endplate of the L1 vertebral body. No acute vertebral body compression fractures. Spinal Cord: Conus medullaris terminates at the L1-2 disc level. Visualized cord demonstrates normal signal and size. Paraspinous Soft Tissues: No paravertebral masses. T12-L1: Loss of disc signal. No central stenosis. No neural foraminal narrowing. No neural compression. L1-L2: Loss of disc signal. No central stenosis. No neural foraminal narrowing. No neural compression. L2-L3: Loss of disc signal. Minimal, diffuse disc bulge. No central stenosis. No neural foraminal narrowing. No neural compression. L3-L4: Loss of disc signal and height. Moderate, diffuse disc bulge. Mild bilateral facet hypertrophy. Mild narrowing of the central canal. Moderate to severe right and mild left neural foraminal narrowing with slight compression of the exiting right L3 nerve root. L4-L5: Loss of disc signal. Mild, diffuse disc bulge. Mild bilateral facet hypertrophy. No central stenosis. No neural foraminal narrowing. No neural compression. L5-S1: Loss of disc signal. Mild, diffuse disc bulge. Mild bilateral facet hypertrophy stenosis. No neural foraminal narrowing. No neural compression. Fissure noted in the posterior annulus. No acute fracture identified in the visualized portion of the sacrum. IMPRESSION: 1. Multilevel degenerative disc disease. 2. Multilevel facet arthropathy. 3. No severe central canal narrowing. 4. Moderate to severe right L3-L4 neural foraminal narrowing with slight compression of the exiting right L3 nerve root. Please correlate with clinical data. 5. L5-S1 disc annulus fissure. Dictated by: Nilda Maher MD, PhD on 06/11/2020 at 11:58 Approved by: Nilda Maher MD, PhD on 06/11/2020 at 13:28
== END ==
PROVIDERS: PCP Family Medicine; Referring Provider Family Medicine; Visit Provider Physical Medicine & Rehabilitation
DX: M47.816 Spondylosis without myelopathy or radiculopathy, lumbar region (principal); M51.37 Other intervertebral disc degeneration, lumbosacral region; M85.88 Other specified disorders of bone density and structure, other site; M41.9 Scoliosis, unspecified; S32.10XA Unspecified fracture of sacrum, initial encounter for closed fracture; Q05.7 Lumbar spina bifida without hydrocephalus
CPT/HCPCS: 72148

== ENCOUNTER → 2020-06-20 09:24 | Outpatient (CLI) | payer MEDICARE, MEDICAID, SELFPAY ==
[2020-04-23 15:39] VITALS: BMI 20.7
[2020-06-20] MEDS: COVID-19 VACC #1, MRNA(MOD) 100 MCG/0.5 ML VIAL IM (09:34)
== END ==
PROVIDERS: PCP Family Medicine; Visit Provider Internal Medicine
DX: Z23 Encounter for immunization (principal)
CPT/HCPCS: 0011A; 91301

== ENCOUNTER → 2020-07-08 14:28 | Outpatient (CLI) | payer MEDICARE, MEDICAID, SELFPAY ==
[2020-04-23 15:39] VITALS: BMI 20.7
[2020-07-08 17:02] LABS: COVID19 -Nasal RAPID Negative (Negative)
== END ==
PROVIDERS: PCP Family Medicine; Visit Provider Physical Medicine & Rehabilitation
DX: Z01.812 Encounter for preprocedural laboratory examination (principal); Z20.822 Contact with and (suspected) exposure to COVID-19
CPT/HCPCS: 87635; C9803

== ENCOUNTER 2020-07-10 14:58 | Outpatient (CLI) | payer MEDICARE, MEDICAID, SELFPAY ==
[2020-04-23 15:39] VITALS: BMI 20.7
[2020-07-10] VITALS (9 sets, daily range): BP systolic 90–114; BP diastolic 58–81; PULSE 53–72; RESP 12–19; TEMP 36.6; O2SAT 96–100
--- NOTE | 2020-07-10 15:01 | DI.RAD.S_ITS ---
PROCEDURE: PAIN L/S FACET INJ/BLK 1ST LESLIE COMPARISON: [facility], CR, XR LUMBAR SPINE 2-3V, 10/19/2019, 12:55. INDICATIONS: SPONDYLOSIS FINDINGS: Fluoroscopic spot filming was performed to verify placement of a spinal needle at the L4-L5 level and L5-S1 level on both sides, as labeled on the films. Appropriate location of the needle tips was confirmed by injection of iodinated contrast. IMPRESSION: Intraprocedural examination within normal limits. Dictated by: Eliel Campos M.D. on 07/10/2020 at 15:28 Approved by: Eliel Campos M.D. on 07/10/2020 at 15:29
[2020-07-10] MEDS: fentaNYL 100 MCG/2 ML INJ 50 MCG IV (15:25)
[2020-07-10] MEDS: MIDAZOLAM 5 MG/5 ML VIAL IV (15:25)
[2020-07-10] MEDS: IOPAMIDOL 15 ML VIAL 3 ML INJ (15:29)
[2020-07-10] MEDS: LIDOCAINE 1% 20 ML 10 ML INJ (15:29)
[2020-07-10] MEDS: BUPIVACAINE 0.5% (PF) VIAL 2 ML INJ (15:29)
[2020-07-10] MEDS: BETAMETHASONE 30 MG/5 ML MDV 12 MG INJ (15:29)
--- NOTE | 2020-07-10 15:40 | P.PCN_ITS ---
Date/Time/Diagnoses Date of procedure: 07/10/20 Time of procedure: 15:40 Pre-procedure diagnosis: 1. FACET ARTHROPATHY 2. AXIAL LBP 3. MULTILEVEL DDD Post-procedure diagnosis: same Procedure Notes Procedure: 1. FLUOROSCOPICALLY GUIDED CONTRAST CONTROLLED FACET JOINT INJECTIONS BILATERAL L4/5, L5/S1 Indications: Gely is referred by Dr. Mccarty for treatment of Axial LBP Physician: Norberto Ball Total Fluoroscopy time (seconds): 7 Total sedation minutes: 13 Complications: none Procedure in detail & Post-procedure care: FINDINGS Multilevel Facet Arthropathy with Clinically significant axial LBP DESCRIPTION OF PROCEDURE Fluoroscopically guided, contrast-controlled bilateral L4/5, L5/S1 facet joint injections. Following review of allergy and review of potential side effects and complications, including, but not necessarily limited to, infection, allergic reaction, local tissue breakdown, stroke, temporary or permanent nerve injury, paralysis, and possible , the patient indicated that the patient understood and agreed to proceed. An informed consent document was signed by the patient, witnessed by a nurse, and placed in the patient's chart. Additionally, other treatment options including medications, modalities, and physical therapy were reviewed with the patient. After review of previous anaesthesic history and IV conscious sedation the patient was deemed safe to proceed with today?s procedure with IV conscious sedation as ASA class II designation. Safety time-out was performed to confirm patient ID, procedure to be performed and site of procedure. IV sedation was accomplished with a combination of 2mg of Versed and 50mcg of Fentanyl was administered by the RN after DO order, titrated to patient comfort during the course of the procedure while the patient remained responsive to all verbal commands In the prone position, following sterile prep and drape of the lumbar region, the posterior aspect of the L4/5, L5/S1 facet joints were identified fluoroscopically. The skin was anesthetized via a 25-gauge 1.5inch needle with 1% lidocaine solution into the corresponding facet joints. At this point, a 22- gauge 3.5-inch spinal needle was atraumatically introduced and advanced under fluoroscopic guidance into the corresponding facet joints. Following negative aspiration, injections of approximately 0.2cc of Isovue 200 confirmed intera rticular placement without vascular uptake. The identical procedure was then performed at the L4/5, L5/S1 facet joints on the left. Radiological data, including multiple fluoroscopic views of the lumbosacral spine, reveal a spinal needle at the L4/5, L5/S1 facet joints bilaterally. Subsequent views show flow of contrast material both superiorly and inferiorly within the joint space without vascular or intrathecal uptake. At this point, a total of 0.5cc including a mixture of 0.25cc Marcaine and 0.25cc betamethasone was injected without complication into each of the corresponding facet joints. The patient tolerated the procedure well without signs or symptoms of complications prior to transfer to the recovery area continued monitoring without incident. The patient was then transferred to the recovery area where they were observed for an appropriate period of time after the injection. The patient reported a VAS score of 7 prior to the procedure and a post- procedure VAS of 0. POST OP INSTRUCTIONS The patient was provided a Pain Log to continue to record their response to the target-specific procedure prior to follow-up visit with their referring physician. Additionally, specific post-injection care instructions and a contact number to our office were provided if concerns arise regarding possible complications associated with the procedure are suspected.
== END 2020-07-10 16:00 | disposition home or self-care (01) ==
PROVIDERS: PCP Family Medicine; Referring Provider Physical Medicine & Rehabilitation; Visit Provider Physical Medicine & Rehabilitation
DX: M47.816 Spondylosis without myelopathy or radiculopathy, lumbar region (principal); M47.817 Spondylosis without myelopathy or radiculopathy, lumbosacral region; M54.5 Low back pain; M51.36 Other intervertebral disc degeneration, lumbar region; M51.37 Other intervertebral disc degeneration, lumbosacral region
CPT/HCPCS: 64493; 64494; 99152; J0702; J2250; J3010

== ENCOUNTER → 2020-07-18 09:28 | Outpatient (CLI) | payer MEDICARE, MEDICAID, SELFPAY ==
[2020-04-23 15:39] VITALS: BMI 20.7
[2020-07-18] MEDS: COVID-19 VACC #2, MRNA(MOD) 100 MCG/0.5 ML VIAL IM (09:40)
== END ==
PROVIDERS: PCP Family Medicine; Visit Provider Internal Medicine
DX: Z23 Encounter for immunization (principal)
CPT/HCPCS: 0012A; 91301

== ENCOUNTER 2020-08-18 13:23 | Emergency (ER) | payer MEDICARE, MEDICAID, SELFPAY ==
[2020-04-23 15:39] VITALS: BMI 20.7
[2020-08-18 13:29] VITALS: BP 118/60; PULSE 73; RESP 16; TEMP 36.9; O2SAT 99; BMI 19.1
--- NOTE | 2020-08-18 13:32 | DI.RAD.S_ITS ---
PROCEDURE: XR RIBS LT MIN 3V W CXR1V INDICATIONS: Fall tuesday left side rib pain TECHNIQUE: 2 views of the left ribs were acquired, along with a single view chest. COMPARISON: [facility], , XR CHEST 2V, 07/25/2019, 13:44. FINDINGS: Surgical changes and devices: None. Bones and chest wall: Mild undulation of the left posterior lateral 6th rib, new. Prior right 6th and 7th rib fractures and possibly right 4th and 5th rib fractures. No dislocation. No suspicious bony lesions. Overlying soft tissues appear unremarkable. Lungs and pleura: No pleural effusions or pneumothorax. Lungs appear clear. Mediastinum: Mediastinal contours appear unchanged. Heart size is within normal limits. IMPRESSION: Nondisplaced left 6th rib fracture. No pneumothorax. No hemothorax. Dictated by: Soham Banerjee M.D. on 08/18/2020 at 14:59 Approved by: Soham Banerjee M.D. on 08/18/2020 at 15:07
--- NOTE | 2020-08-18 14:16 | ED.BACK ---
HPI - Back Pain/Injury General Chief Complaint: Back Pain/Injury Stated Complaint: Thinks Broke Rib, Left Side Time Seen by Provider: 08/18/20 13:28 Source: patient Mode of arrival: Ambulatory Limitations: no limitations History of Present Illness HPI Narrative: 44-year-old female who 3 days ago fell after tripping on a cord landing on her left side. Since then she has discomfort and coughing and difficulty with breathing. She is on a pain contract. She was concerned about her long and also multiple rib fractures. Related Data Home Medications Medication Instructions Recorded Confirmed citalopram 20 mg PO DAILY 05/24/19 05/28/20 dicyclomine 20 mg PO DAILY 05/24/19 05/28/20 gabapentin 900 mg PO BID 05/24/19 05/28/20 trazodone 50 - 100 mg PO BEDTIME PRN 05/24/19 07/23/19 methocarbamol 500 mg tablet 500 mg PO BEDTIME 05/28/20 05/28/20 oxycodone 5 mg tablet 5 mg PO BID PRN 05/28/20 05/28/20 Previous Rx's Medication Instructions Recorded potassium chloride [Klor-Con M20] 40 meq PO BIDWM #60 tab 07/24/19 albuterol sulfate 2 puff INHALATION Q4-6H PRN #8.5 07/25/19 gram Allergies Allergy/AdvReac Type Severity Reaction Status Date / Time duloxetine AdvReac Verified 08/18/20 13:31 Review of Systems Constitutional Constitutional: Denies fever(s) and Denies headache(s) ENT Ears, Nose, Mouth, and Throat: Denies headache(s) Cardiovascular Cardiovascular: Denies dyspnea Comments: Left-sided chest wall pain Respiratory Respiratory: Denies dyspnea Gastrointestinal Gastrointestinal: Denies abdominal pain, Denies nausea and Denies vomiting Integumentary/Breasts Skin/Breast: Denies rash Neurologic Neurologic: Denies headache(s) Hematologic/Lymphatic On Anticoagulants: No Patient History Medical History Anxiety Chronic high back pain Depression Facet arthropathy, lumbar H/O ETOH abuse Osteopenia of lumbar spine Sacral fracture Scoliosis Surgical History No pertinent past surgical history Family History Mother Afib Grandmother Heart disease Degenerative disk disease Osteoporosis Social History household members: family Smoking Status: Current every day smoker alcohol intake: former Smoking Status: Current every day smoker tobacco type: cigarettes alcohol intake frequency: other Substance Use Type: marijuana Exam Initial Vital Signs Initial Vital Signs: Vital Signs Temperature 98.5 F 08/18/20 13:29 Pulse Rate 73 08/18/20 13:29 Respiratory Rate 16 08/18/20 13:29 Blood Pressure 118/60 08/18/20 13:29 Pulse Oximetry 99 08/18/20 13:29 Const General: cooperative Limitations: mental status not altered HENMT Head: normal to inspection and normocephalic Chest Other: Left axillary wall discomfort Resp Effort & Inspection: normal respiratory effort Auscultation: clear to auscultation bilaterally Cardio Rate: regular rate Rhythm: regular rhythm GI Inspection: non-distended Palpation: soft Skin Lesions: no lesions Rashes: no rashes Neuro General: patient alert, patient awake and patient oriented x3 Cognition: normal cognition Speech: speech normal Extrem General: normal to inspection and capillary refill normal Psych Appearance: grossly normal and well kempt Course Orders Ordered: ED Orders 08/18/20 13:32 XR ribs LT min 3V w CXR1V Stat Vital Signs Vital signs: Vital Signs - 8 hr 08/18/20 13:29 Temperature 98.5 F Pulse Rate 73 Respiratory Rate 16 Blood Pressure 118/60 Pulse Oximetry 99 MDM - Back Pain/Injury Imaging Data Rib x-rays: Radiologist's Impression: [address] [id number] ReportSigned Patient: Gely Wilson#: [id number]: 1975Acct:[id number]/Sex: 44 / FDate of Service: 08/18/20Loc: EDAccession Number: [id number] Procedure: XR ribs LT min 3V w CXR1V Ordering Provider: Terrence Salazar D.O. PROCEDURE: XR RIBS LT MIN 3V W CXR1V INDICATIONS: Fall tuesday left side rib pain TECHNIQUE: 2 views of the left ribs were acquired, along with a single view chest. COMPARISON: [facility], CR, XR CHEST 2V, 07/25/2019, 13:44. FINDINGS: Surgical changes and devices: None. Bones and chest wall: Mild undulation of the left posterior lateral 6th rib, new. Prior right 6th and 7th rib fractures and possibly right 4th and 5th rib fractures. No dislocation. No suspicious bony lesions. Overlying soft tissues appear unremarkable. Lungs and pleura: No pleural effusions or pneumothorax. Lungs appear clear. Mediastinum: Mediastinal contours appear unchanged. Heart size is within normal limits. IMPRESSION: Nondisplaced left 6th rib fracture. No pneumothorax. No hemothorax. Dictated by: Soham Banerjee M.D. on 08/18/2020 at 14:59 Approved by: Soham Banerjee M.D. on 08/18/2020 at 15:07 MDM Narrative Medical decision making narrative: No signs of pneumonia. Had a mechanical fall. Isolated left 6th rib fracture this does correspond to where she is having discomfort. She is on a pain contract and has medicine at home. We did discuss the importance of taking deep breaths and coughing. Discussed return precautions. She expressed understanding and agreement. Discharge Plan Departure Patient Disposition: Home Clinical Impression: Fracture of rib of left side Instructions: DI for Rib Fracture Activity Restrictions/Additional Instructions: There was a rib fracture noted on the x-rays. Unfortunately other than pain control which he already have at home there is not much more we can do for these. It is important that you occasionally take a deep breath and cough to prevent pneumonia. If you start having fevers or worsening shortness of breath please return to the emergency department for further evaluation. Prescriptions: No Action potassium chloride [Klor-Con M20] 20 mEq Tablet,Er Particles/Crystals 40 meq PO BIDWM Qty: 60 RF: 1 albuterol sulfate 90 mcg/actuation HFA aerosol inhaler 2 puff INHALATION Q4-6H PRN (Reason: shortness of breath or wheezing) Qty: 8.5 RF: 0 trazodone 50 mg tablet 50 - 100 mg PO BEDTIME PRN (Reason: Sleep) RF: 0 citalopram 20 mg tablet 20 mg PO DAILY RF: 0 gabapentin 300 mg capsule 900 mg PO BID RF: 0 dicyclomine 10 mg capsule 20 mg PO DAILY RF: 0 oxycodone 5 mg tablet 5 mg PO BID PRNRF: 0 methocarbamol 500 mg tablet 500 mg PO BEDTIME RF: 0 Referrals: Santiago Aguillon MD [Primary Care Provider] -
[2020-08-18 15:23] VITALS: BP 112/70; PULSE 70; RESP 14; O2SAT 98
== END 2020-08-18 15:26 | disposition home or self-care (01) ==
PROVIDERS: Emergency Provider Emergency Medicine; PCP Family Medicine
DX: S22.32XA Fracture of one rib, left side, initial encounter for closed fracture (principal); W19.XXXA Unspecified fall, initial encounter
CPT/HCPCS: 71101; 99283

== ENCOUNTER → 2020-10-20 08:06 | Outpatient (CLI) | payer MEDICARE, SELFPAY ==
[2020-04-23 15:39] VITALS: BMI 20.7
[2020-10-20 12:38] LABS: COVID19 -Nasal RAPID Negative (Negative)
== END ==
PROVIDERS: PCP Family Medicine; Visit Provider Physical Medicine & Rehabilitation
DX: Z20.822 Contact with and (suspected) exposure to COVID-19 (principal)
CPT/HCPCS: 87635; C9803

== ENCOUNTER 2020-10-21 13:37 | Outpatient (CLI) | payer MEDICARE, MEDICAID, SELFPAY ==
[2020-04-23 15:39] VITALS: BMI 20.7
[2020-10-21] VITALS (9 sets, daily range): BP systolic 103–128; BP diastolic 63–70; PULSE 54–65; RESP 12–20; TEMP 36.7; O2SAT 92–100
--- NOTE | 2020-10-21 13:39 | DI.RAD.S_ITS ---
PROCEDURE: PAIN L INTERLAMINAR/CAUDAL INJ INDICATIONS: SPONDYLOSIS COMPARISON: None. FINDINGS: Fluoroscopic spot filming was performed to verify placement of spinal needles at the L3-L4 posterior epidural space. level(s), as labeled on the films. Appropriate location(s) of the needle tip(s) was confirmed by injection of iodinated contrast. IMPRESSION: Access needle at the L3-L4 posterior epidural space. Dictated by: Nilda Maher MD, PhD on 10/21/2020 at 16:03 Approved by: Nilda Maher MD, PhD on 10/21/2020 at 16:04
[2020-10-21] MEDS: MIDAZOLAM 5 MG/5 ML VIAL IV (14:18)
[2020-10-21] MEDS: fentaNYL 100 MCG/2 ML INJ 50 MCG IV (14:18)
[2020-10-21] MEDS: IOPAMIDOL 15 ML VIAL 3 ML INJ (14:26)
[2020-10-21] MEDS: DEXAMETHASONE 10 MG/ML VIAL 20 MG INJ (14:26)
[2020-10-21] MEDS: BUPIVACAINE 0.25% (PF) VIAL 2 ML INJ (14:26)
--- NOTE | 2020-10-21 14:32 | P.PCN_ITS ---
Date/Time/Diagnoses Date of procedure: 10/21/20 Time of procedure: 14:32 Pre-procedure diagnosis: 1. HNP WITH RADICULAR FEATURES, 2. MULTILEVEL CENTRAL STENOSIS, Post-procedure diagnosis: same Procedure Notes Procedure: 1. FLUOROSCOPICALLY GUIDED CONTRAST CONTROLLED INTERLAMINAR EPIDURAL STEROID INJECTION - L3/4 Indications: Gely is referred by Dr. Aguillon for treatment of Bilateral Foraminal Stenosis L>R LE symptoms. Physician: Norberto Ball Total Fluoroscopy time (seconds): 6 Total sedation minutes: 9 Complications: none Procedure in detail & Post-procedure care: FINDINGS Multilevel Central Spinal Stenosis with Nerve Root Compression DESCRIPTION OF PROCEDURE Fluoroscopically guided, contrast-controlled L3/4 translaminar epidural steroid injection. Following review of allergy and review of potential side effects and complications, including, but not necessarily limited to, infection, allergic reaction, local tissue breakdown, temporary as well as permanent nerve injury, paralysis, stroke and possible , the patient indicated that the patient understood and agreed to proceed. An informed consent document was signed by the patient, witnessed by a nurse, and placed in the patient's chart. Additionally, other treatment options including modalities, medications, and physical therapy were reviewed with the patient. After review of previous anaesthesic history and IV conscious sedation the patient was deemed safe to proceed with today?s procedure with IV conscious sedation as ASA class II designation. Safety time-out was performed to confirm patient ID, procedure to be performed and site of procedure. IV sedation was accomplished with a combination of 2mg of Versed and 50mcg of Fentanyl was administered by the RN after DO order, titrated to patient comfort during the course of the procedure while the patient remained responsive to all verbal commands. In the prone position, following sterile prep and drape of the lumbar region, the L3/4 translaminar space was identified fluoroscopically. The skin was anesthetized via a 25-gauge, 1.5-inch needle with 1% lidocaine solution. At this point, a 22-gauge short bevel spinal needle was atraumatically introduced and advanced under fluoroscopic guidance into the region of the L3/4 translaminar space. Depth was confirmed on lateral view. Radiological data, including multiple fluoroscopic views of the lumbar spine, reveal a spinal needle at the L3/4 translaminar space. Lateral views then show placement of the needle in the epidural space. Subsequent views show contrast material flowing superiorly and inferiorly in the epidural space. No vascular or intrathecal uptake is observed. At this point, using loss of resistance technique with saline and air, the epidural space was entered. This was confirmed following negative aspiration with injection of approximately 1.5 cc of Isovue 200, showing excellent epidural flow without vascular or intrathecal uptake. At this point, 1cc of 1% lidocaine solution combined with 3cc or 20mg of dexamethasone and 6mg of betamethasone was injected without incident. The patient tolerated the procedure well without signs or symptoms of complications prior to transfer to the recovery area continued monitoring without incident. The patient was then transferred to the recovery area where they were observed for an appropriate period of time after the injection. The patient reported a VAS score of 6 prior to the procedure and a post- procedure VAS of 0. POST OP INSTRUCTIONS The patient was provided a Pain Log to continue to record their response to the target-specific procedure prior to follow-up visit with their referring physician. Additionally, specific post-injection care instructions and a contact number to our office were provided if concerns arise regarding possible complications associated with the procedure are suspected.
== END 2020-10-21 14:58 | disposition home or self-care (01) ==
LOC: RAD 13:38
PROVIDERS: PCP Family Medicine; Referring Provider Physical Medicine & Rehabilitation; Visit Provider Physical Medicine & Rehabilitation
DX: M51.16 Intervertebral disc disorders with radiculopathy, lumbar region (principal); M48.061 Spinal stenosis, lumbar region without neurogenic claudication
CPT/HCPCS: 62323; J1100; J2250; J3010

== ENCOUNTER → 2021-04-03 10:20 | Outpatient (CLI) | payer MEDICARE, MEDICAID, SELFPAY ==
[2020-04-23 15:39] VITALS: BMI 20.7
[2021-04-03 10:51] LABS: BUN Creatinine Ratio 15.4 (6-22); Blood Urea Nitrogen 10 mg/dL (7-17); Calcium 8.6 mg/dL (8.4-10.2); Carbon Dioxide 21 mmol/L (22-32); Chloride 109 mmol/L (98-107); Estimated Glomerular Filt Rate > 60.0 mL/min (>60); Glucose 128 mg/dL (70-100); HEMOLYSIS < 15 (0-50); Potassium 3.5 mmol/L (3.4-5.1); Sodium 140 mmol/L (137-145)
== END ==
PROVIDERS: PCP Family Medicine; Referring Provider Family Medicine; Visit Provider Family Medicine
DX: R60.0 Localized edema (principal)
CPT/HCPCS: 36415; 80048

== ENCOUNTER 2021-04-26 09:08 | Emergency (ER) | payer MEDICARE, MEDICAID, SELFPAY ==
[2020-04-23 15:39] VITALS: BMI 20.7
[2021-04-26] VITALS (30 sets, daily range): BP systolic 78–112; BP diastolic 49–64; PULSE 101–110; RESP 13–30; TEMP 37; O2SAT 85–100; BMI 25.6
--- NOTE | 2021-04-26 09:14 | ED_ITS ---
HPI - General Adult General Chief complaint: Weakness Stated complaint: right foot swollen, dizzy and falling Time Seen by Provider: 04/26/21 09:12 History of Present Illness HPI narrative: [age] were year old woman with a history of alcohol use disorder, chronic back pain, osteoporosis with osteoporotic fractures, hypokalemia and typically hypotension presents complaining of severe diarrhea for a number of days, almost no urine output for the last 24 hours, increasing weakness and 12 falls in the last 24 hours with hitting her head complaining of a contusion to the right eye and severe right foot pain with ecchymosis. She is not complaining of fevers, dyspnea, palpitations, abdominal pain. She complains of some mild tenderness around the right eyebrow with the contusion from recent fall but no specific headache otherwise. Patient states that she has been sober for 8 years. She describes moderate to heavy cocaine use in the 80s but no stimulants since then and denies any methamphetamine or IV drug use ever. Related Data Home Medications Medication Instructions Recorded Confirmed citalopram 20 mg tablet 20 mg PO DAILY 05/24/19 11/14/20 dicyclomine 10 mg capsule 20 mg PO DAILY 05/24/19 11/14/20 gabapentin 300 mg capsule 900 mg PO BID 05/24/19 11/14/20 trazodone 50 mg tablet 50 - 100 mg PO BEDTIME PRN 05/24/19 11/14/20 methocarbamol 500 mg tablet 500 mg PO BEDTIME 05/28/20 11/14/20 oxycodone 5 mg tablet 5 mg PO BID PRN 05/28/20 11/14/20 Previous Rx's Medication Instructions Recorded potassium chloride 20 mEq 40 meq PO BIDWM #60 tab 07/24/19 tablet,extended release(part/cryst) (Klor-Con M) albuterol sulfate 90 mcg/actuation 2 puff INHALATION Q4-6H PRN #8.5 07/25/19 aerosol inhaler gram calcitonin (salmon) 200 1 spray INTRANASAL (ALT) DAILY 90 09/03/20 unit/actuation nasal spray Days #3.7 ml cyclobenzaprine 10 mg tablet 10 mg PO BID PRN #60 tab 11/14/20 Allergies Allergy/AdvReac Type Severity Reaction Status Date / Time duloxetine AdvReac Verified 04/26/21 09:38 Review of Systems Review of Systems Narrative: Remainder of complete review of systems is otherwise unremarkable except for that included in the HPI. Patient History Medical History (Updated 04/26/21 @ 14:20 by Mariely Valle MD) Anxiety Chronic high back pain Depression Facet arthropathy, lumbar H/O ETOH abuse Herniated nucleus pulposus, lumbar Osteopenia of lumbar spine Pulmonary hypertension Sacral fracture Scoliosis Surgical History No pertinent past surgical history Family History Mother Afib Grandmother Heart disease Degenerative disk disease Osteoporosis Social History household members: family Smoking Status: Current every day smoker alcohol intake: former Smoking Status: Current every day smoker tobacco type: cigarettes alcohol intake frequency: other Substance Use Type: marijuana Exam Initial Vital Signs Initial Vital Signs: Vital Signs Temperature 98.6 F 04/26/21 09:42 Pulse Rate 110 H 04/26/21 09:42 Respiratory Rate 24 04/26/21 09:42 Blood Pressure 84/52 L 04/26/21 09:42 Pulse Oximetry 100 04/26/21 09:42 General: Chronically ill-appearing but in no acute distress. Able to give a complete and coherent history. HEENT: Moist mucous membranes, normal sclera with reactive pupils, Neck: Significant JVD, supple Respiratory: Lungs are clear to auscultation, no wheezing no rales no rhonchi. Full and symmetrical air movement Cardiac: 3/6 systolic murmur with an opening snap appreciated. No rubs or bruits Abdomen: Soft, nontender, good bowel tones, no flank pain Skin: Mottled over her entire body. Occasional areas of bruising in various stages of healing. Significant bruising to the right foot Neurologic: Grossly neurologically intact with no obvious asymmetries or abnormalities Extremities: No palpable distal pulses with delayed capillary refill. Right foot is swollen tender in the mid foot with bruising over the entire foot. No ankle tenderness or obvious injury. I do not appreciate splinter hemorrhages in either toes or fingernails however she does have significant clubbing Psych: Cooperative, poor overall insight, normal affect Procedures Central Line Placement Left IJ: Time of procedure: 16:18 Time Out Performed: Yes Patient Placed on Monitor/Pulse Ox: Yes Prep: mask, gown and gloves Central Line Prep: Chlorhexidine scrub Local Anesthetic: lidocaine 1% Amount of anesthesia used (mL): 3 Ultrasound Used for Placement: Yes Central Line Lumen Inserted: triple Post Procedure: sutured in place, good blood return, all ports aspirated, flushed, capped and sterile dressing applied Post Procedure X-Ray: tip of catheter in good position and no pneumothorax seen Patient Tolerated Procedure: Well Complications: none Orthopedic Splinting/Casting Right foot: Time of procedure: 17:10 Side: right Lower Extremity Injury Location: foot Lower Extremity Immobilizer: boot orthosis Post splinting neuro exam: intact Post splinting vascular exam: no change Course Orders Ordered: ED Orders 04/26/21 09:34 CT angio chest PE protocol Stat 04/26/21 09:35 COVID19 -Nasal swab/Pre-Proc Stat Complete Blood Count AUTO DIFF Stat Comprehensive Metabolic Panel Stat Ethanol (ETOH) Stat Lactate (Lactic Acid) Stat Lipase Stat Magnesium Stat NT-proBNP (BNP-Adult 18+) Stat Procalcitonin Stat Troponin I Stat 04/26/21 09:39 EKG-12 Lead Stat 04/26/21 09:43 CT head/brain wo con Stat XR foot RT min 3V Stat 04/26/21 09:52 Blood Culture Stat 04/26/21 10:03 EC echo doppler complete Stat 04/26/21 10:59 Ictotest Urine Stat Urinalysis and Microscopic Stat Urine Culture Stat Urine Drug Screen, Rapid Stat 04/26/21 11:11 Test Urine Stat 04/26/21 16:13 Chest [XR chest 1V] Stat Discontinued Medications Hydromorphone HCl (Hydromorphone 0.5 Mg Inj) 0.5 mg IV Q15MIN PRN PRN Reason: Pain, Last Admin: 04/26/21 15:38 Dose: 0.5 mg Documented by: Admin: 04/26/21 13:12 Dose: 0.5 mg Documented by: BENI Sodium Chloride (Normal Saline 0.9%) 1,000 mls @ 1,000 mls/hr IV BOLUS ONE Stop: 04/26/21 10:25 Last Infusion: 04/26/21 12:26 Dose: 0 mls/hr Documented by: Admin: 04/26/21 10:30 Dose: 1,000 mls/hr Documented by: DEVIN Thiamine HCl 100 mg/ Sodium (Chloride) 101 mls @ 404 mls/hr IV NOW ONE Stop: 04/26/21 09:44 Last Infusion: 04/26/21 11:03 Dose: 0 mls/hr Documented by: Admin: 04/26/21 10:31 Dose: 404 mls/hr Documented by: DEVIN Piperacillin Sod/Tazobactam (Sod 4.5 gm/ Sodium Chloride) 100 mls @ 200 mls/hr IV NOW ONE Stop: 04/26/21 10:05 Last Infusion: 04/26/21 11:32 Dose: 0 mls/hr Documented by: Admin: 04/26/21 10:34 Dose: 200 mls/hr Documented by: DEVIN Vancomycin HCl (Vancomycin) 1,000 mg in 200 mls @ 200 mls/hr IV NOW ONE Stop: 04/26/21 11:44 Last Infusion: 04/26/21 12:36 Dose: 0 mls/hr Documented by: Admin: 04/26/21 11:34 Dose: 200 mls/hr Documented by: DEVIN Sodium Chloride (Normal Saline 0.9%) 1,000 mls @ 1,000 mls/hr IV BOLUS ONE Stop: 04/26/21 13:19 Last Infusion: 04/26/21 13:50 Dose: 0 mls/hr Documented by: Admin: 04/26/21 12:30 Dose: 1,000 mls/hr Documented by: DEVIN Sodium Chloride (Normal Saline 0.9%) 1,000 mls @ 1,000 mls/hr IV BOLUS ONE Stop: 04/26/21 14:53 Last Infusion: 04/26/21 16:15 Dose: 0 mls/hr Documented by: Admin: 04/26/21 13:56 Dose: 1,000 mls/hr Documented by: BENI Furosemide 120 mg/ Sodium (Chloride) 62 mls @ 124 mls/hr IV NOW ONE Stop: 04/26/21 15:37 Last Infusion: 04/26/21 16:36 Dose: 0 mls/hr Documented by: Admin: 04/26/21 15:56 Dose: 124 mls/hr Documented by: BENI Furosemide 100 mg/ Sodium (Chloride) 60 mls @ 3 mls/hr IV CONT ANTHONY Last Infusion: 04/26/21 16:56 Dose: 0 mg/hr, 0 mls/hr Documented by: Admin: 04/26/21 16:28 Dose: 5 mg/hr, 3 mls/hr Documented by: BENI Piperacillin Sod/Tazobactam (Sod 3.375 gm/ Sodium Chloride) 100 mls @ 25 mls/hr IV Q8H ANTHONY NOREPINEPHRINE BITARTRATE/D5W (Levophed) 4 mg in 250 mls @ 30 mls/hr IV TITRATE ANTHONY; Protocol Last Titration: 04/26/21 16:56 Dose: 0 mcg/min, 0 mls/hr Documented by: Admin: 04/26/21 16:26 Dose: 8 mcg/min, 30 mls/hr Documented by: BENI Vancomycin HCl (Vancomycin Per Pharmacy) 1 request MISC NOW ONE Stop: 04/26/21 10:05 Last Admin: 04/26/21 11:36 Dose: Not Given Documented by: FHUDSON Vital Signs Vital signs: Vital Signs - 8 hr 04/26/21 09:42 04/26/21 10:15 04/26/21 10:30 Temperature 98.6 F Pulse Rate 110 H 108 H 108 H Respiratory Rate 24 13 21 Blood Pressure 84/52 L Pulse Oximetry 100 96 94 04/26/21 10:31 04/26/21 11:00 04/26/21 11:30 Temperature Pulse Rate 109 H 105 H 103 H Respiratory Rate 18 24 17 Blood Pressure 87/56 L 80/52 L 80/55 L Pulse Oximetry 94 96 96 04/26/21 12:00 04/26/21 12:30 04/26/21 12:48 Temperature Pulse Rate 105 H 104 H 104 H Respiratory Rate 15 16 15 Blood Pressure 83/54 L 86/53 L 89/58 L Pulse Oximetry 99 85 L 89 L 04/26/21 13:00 04/26/21 13:30 04/26/21 13:31 Temperature Pulse Rate 106 H 107 H 107 H Respiratory Rate 14 19 19 Blood Pressure 84/55 L 87/50 L Pulse Oximetry 95 95 86 L 04/26/21 14:00 04/26/21 14:23 04/26/21 14:30 Temperature Pulse Rate 109 H 106 H 107 H Respiratory Rate 18 22 26 H Blood Pressure 84/54 L 85/51 L Pulse Oximetry 93 96 95 04/26/21 15:00 04/26/21 15:19 04/26/21 15:30 Temperature Pulse Rate 106 H 103 H 103 H Respiratory Rate 26 H 17 14 Blood Pressure 82/55 L 83/61 L 84/49 L Pulse Oximetry 95 95 94 04/26/21 16:00 04/26/21 16:14 04/26/21 16:22 Temperature Pulse Rate 101 H 103 H 102 H Respiratory Rate 15 30 H 17 Blood Pressure 78/59 L 81/59 L 89/53 L Pulse Oximetry 95 96 92 04/26/21 16:30 04/26/21 16:31 04/26/21 16:32 Temperature Pulse Rate 102 H 103 H 102 H Respiratory Rate 17 16 16 Blood Pressure 107/58 L 105/57 L Pulse Oximetry 100 100 100 04/26/21 16:34 04/26/21 16:36 04/26/21 16:39 Temperature Pulse Rate 103 H 104 H 104 H Respiratory Rate 19 21 20 Blood Pressure 102/61 112/64 104/59 L Pulse Oximetry 99 97 98 04/26/21 16:40 04/26/21 16:42 04/26/21 16:44 Temperature Pulse Rate 104 H 104 H 104 H Respiratory Rate 19 19 19 Blood Pressure 107/57 L 106/61 100/62 Pulse Oximetry 97 97 96 Medical Decision Making Lab Data Result diagrams: 04/26/21 09:35 04/26/21 09:35 Labs: Lab Results 04/26/21 04/26/21 04/26/21 Range/Units 09:35 09:35 09:35 WBC 14.7 H (4.5-11.0) X10^3/uL RBC 3.28 L (4.0-5.2) X10^6/uL Hgb 11.5 L (12.0-16.0) g/dL Hct 34.6 L (36-46) % MCV 105.5 H (80-100) fL MCH 35.1 H (26-34) PG MCHC 33.2 (30-36) % RDW 15.5 H (11.6-14.8) % Plt Count 84 L (150-400) X10^3/uL Neut % (Auto) 79.4 H (50-75) % Lymph % (Auto) 12.7 L (25-40) % [place] % (Auto) 6.8 (3-14) % Eos % (Auto) 0.6 L (2-4) % Baso % (Auto) 0.5 (0-2) % Neut # (Auto) 88146 H (6557-0151) /uL Lymph # (Auto) 1900 (2232-3069) /uL [place] # (Auto) 1000 H (0-900) /uL Eos # (Auto) 100 (0-450) /uL Baso # (Auto) 100 (0-100) /uL Sodium 135 L (137-145) mmol/L Potassium 5.2 H (3.4-5.1) mmol/L Chloride 106 (98-107) mmol/L Carbon Dioxide 18 L (22-32) mmol/L BUN 36 H (7-17) mg/dL Creatinine 3.17 H (0.52-1.04) mg/dL Estimated GFR 15.7 L (>60) mL/min BUN/Creatinine Ratio 11.4 (6-22) Glucose 88 (70-100) mg/dL Lactate (0.7-2.1) mmol/L Calcium 8.6 (8.4-10.2) mg/dL Magnesium 1.6 (1.6-2.3) mg/dL Total Bilirubin 1.7 H (0.2-1.3) mg/dL AST 127 H (14-36) IU/L ALT 34 (<35) IU/L Alkaline Phosphatase 146 H (38-126) U/L Troponin I 0.250 H* (0.01-0.034) ng/mL NT-Pro-B Natriuret Pep 78462 H (<125) pg/mL Total Protein 7.7 (6.3-8.2) g/dL Albumin 3.7 (3.5-5.0) g/dL Globulin 4.0 (1.7-4.1) g/dL Albumin/Globulin Ratio 0.9 L (1.0-2.8) Lipase 131 (23-300) U/L Procalcitonin 0.84 H (<0.5) ng/mL Urine Color Urine Appearance Urine pH (4.5-8.0) Ur Specific [place] (1.000-1.035) Urine Protein (Negative) Urine Glucose (UA) (Negative) g/dL Urine Ketones (NEGATIVE) Urine Occult Blood (Negative) Urine Nitrate (Negative) Urine Bilirubin (NEGATIVE) Ur Bilirubin Confirm (Negative) Urine Urobilinogen (0.2) E.U./dL Ur Leukocyte Esterase (NEGATIVE) Urine RBC (0-5/HPF) Urine WBC (0-5/HPF) Ur Squamous Epith Cells (0-5/HPF) Urine Bacteria (None) Ur Culture Indicated? Urine Test (Negative) U Opiates 300ng/mL cut (Negative) Ur Oxycodone Screen (Negative) Urine Methadone Screen (Negative) Ur Barbiturates Screen (Negative) U Tricyclic Antidepress (Negative) Ur Phencyclidine Scrn (Negative) Ur Amphetamines Screen (Negative) U Methamphetamines Scrn (Negative) Ur MDMA Scrn (Ecstasy) (Negative) U Benzodiazepines Scrn (Negative) Urine Cocaine Screen (Negative) U Marijuana (THC) Screen (Negative) Ethyl Alcohol < 10 ( - 10) mg/dL SARS-CoV-2 (PCR) (Negative) 04/26/21 04/26/21 04/26/21 Range/Units 09:35 09:35 10:59 WBC (4.5-11.0) X10^3/uL RBC (4.0-5.2) X10^6/uL Hgb (12.0-16.0) g/dL Hct (36-46) % MCV (80-100) fL MCH (26-34) PG MCHC (30-36) % RDW (11.6-14.8) % Plt Count (150-400) X10^3/uL Neut % (Auto) (50-75) % Lymph % (Auto) (25-40) % [place] % (Auto) (3-14) % Eos % (Auto) (2-4) % Baso % (Auto) (0-2) % Neut # (Auto) (1226-3448) /uL Lymph # (Auto) (3737-1197) /uL [place] # (Auto) (0-900) /uL Eos # (Auto) (0-450) /uL Baso # (Auto) (0-100) /uL Sodium (137-145) mmol/L Potassium (3.4-5.1) mmol/L Chloride (98-107) mmol/L Carbon Dioxide (22-32) mmol/L BUN (7-17) mg/dL Creatinine (0.52-1.04) mg/dL Estimated GFR (>60) mL/min BUN/Creatinine Ratio (6-22) Glucose (70-100) mg/dL Lactate 3.9 H (0.7-2.1) mmol/L Calcium (8.4-10.2) mg/dL Magnesium (1.6-2.3) mg/dL Total Bilirubin (0.2-1.3) mg/dL AST (14-36) IU/L ALT (<35) IU/L Alkaline Phosphatase (38-126) U/L Troponin I (0.01-0.034) ng/mL NT-Pro-B Natriuret Pep (<125) pg/mL Total Protein (6.3-8.2) g/dL Albumin (3.5-5.0) g/dL Globulin (1.7-4.1) g/dL Albumin/Globulin Ratio (1.0-2.8) Lipase (23-300) U/L Procalcitonin (<0.5) ng/mL Urine Color Yellow Urine Appearance Cloudy Urine pH 5.0 (4.5-8.0) Ur Specific [place] 1.025 (1.000-1.035) Urine Protein 3+ H (Negative) Urine Glucose (UA) Negative (Negative) g/dL Urine Ketones Trace H (NEGATIVE) Urine Occult Blood 3+ H (Negative) Urine Nitrate Negative (Negative) Urine Bilirubin 1+ H (NEGATIVE) Ur Bilirubin Confirm Negative (Negative) Urine Urobilinogen 0.2 (0.2) E.U./dL Ur Leukocyte Esterase Trace H (NEGATIVE) Urine RBC 10-30/hpf H (0-5/HPF) Urine WBC 5-10/hpf H (0-5/HPF) Ur Squamous Epith Cells 1-5 /hpf (0-5/HPF) Urine Bacteria Many (>30) H (None) Ur Culture Indicated? Specimen cultured Urine Test (Negative) U Opiates 300ng/mL cut (Negative) Ur Oxycodone Screen (Negative) Urine Methadone Screen (Negative) Ur Barbiturates Screen (Negative) U Tricyclic Antidepress (Negative) Ur Phencyclidine Scrn (Negative) Ur Amphetamines Screen (Negative) U Methamphetamines Scrn (Negative) Ur MDMA Scrn (Ecstasy) (Negative) U Benzodiazepines Scrn (Negative) Urine Cocaine Screen (Negative) U Marijuana (THC) Screen (Negative) Ethyl Alcohol ( - 10) mg/dL SARS-CoV-2 (PCR) Negative (Negative) 04/26/21 04/26/21 04/26/21 Range/Units 10:59 11:11 11:58 WBC (4.5-11.0) X10^3/uL RBC (4.0-5.2) X10^6/uL Hgb (12.0-16.0) g/dL Hct (36-46) % MCV (80-100) fL MCH (26-34) PG MCHC (30-36) % RDW (11.6-14.8) % Plt Count (150-400) X10^3/uL Neut % (Auto) (50-75) % Lymph % (Auto) (25-40) % [place] % (Auto) (3-14) % Eos % (Auto) (2-4) % Baso % (Auto) (0-2) % Neut # (Auto) (0325-9134) /uL Lymph # (Auto) (4172-4688) /uL [place] # (Auto) (0-900) /uL Eos # (Auto) (0-450) /uL Baso # (Auto) (0-100) /uL Sodium (137-145) mmol/L Potassium (3.4-5.1) mmol/L Chloride (98-107) mmol/L Carbon Dioxide (22-32) mmol/L BUN (7-17) mg/dL Creatinine (0.52-1.04) mg/dL Estimated GFR (>60) mL/min BUN/Creatinine Ratio (6-22) Glucose (70-100) mg/dL Lactate 2.0 (0.7-2.1) mmol/L Calcium (8.4-10.2) mg/dL Magnesium (1.6-2.3) mg/dL Total Bilirubin (0.2-1.3) mg/dL AST (14-36) IU/L ALT (<35) IU/L Alkaline Phosphatase (38-126) U/L Troponin I (0.01-0.034) ng/mL NT-Pro-B Natriuret Pep (<125) pg/mL Total Protein (6.3-8.2) g/dL Albumin (3.5-5.0) g/dL Globulin (1.7-4.1) g/dL Albumin/Globulin Ratio (1.0-2.8) Lipase (23-300) U/L Procalcitonin (<0.5) ng/mL Urine Color Urine Appearance Urine pH (4.5-8.0) Ur Specific [place] (1.000-1.035) Urine Protein (Negative) Urine Glucose (UA) (Negative) g/dL Urine Ketones (NEGATIVE) Urine Occult Blood (Negative) Urine Nitrate (Negative) Urine Bilirubin (NEGATIVE) Ur Bilirubin Confirm (Negative) Urine Urobilinogen (0.2) E.U./dL Ur Leukocyte Esterase (NEGATIVE) Urine RBC (0-5/HPF) Urine WBC (0-5/HPF) Ur Squamous Epith Cells (0-5/HPF) Urine Bacteria (None) Ur Culture Indicated? Urine Test Negative (Negative) U Opiates 300ng/mL cut Positive H (Negative) Ur Oxycodone Screen Positive H (Negative) Urine Methadone Screen Negative (Negative) Ur Barbiturates Screen Negative (Negative) U Tricyclic Antidepress Positive H (Negative) Ur Phencyclidine Scrn Negative (Negative) Ur Amphetamines Screen Negative (Negative) U Methamphetamines Scrn Negative (Negative) Ur MDMA Scrn (Ecstasy) Negative (Negative) U Benzodiazepines Scrn Negative (Negative) Urine Cocaine Screen Negative (Negative) U Marijuana (THC) Screen Negative (Negative) Ethyl Alcohol ( - 10) mg/dL SARS-CoV-2 (PCR) (Negative) Imaging Data CT scan - chest: Radiologist's Impression: FINDINGS:? Image quality:? Excellent.? ? Pulmonary arteries:? Pulmonary arteries are normal in size, and demonstrate no intraluminal filling defects to suggest central pulmonary embolism.? ? Lungs and pleura:? Lungs are clear.? No pleural effusions or pneumothorax.? Central and peripheral airways are patent.? ? Mediastinum:? Heart size is normal, without pericardial effusion.? No mediast inal or hilar adenopathy.? Thoracic aorta is normal in caliber and enhancement.? Esophagus is normal in caliber, without hiatal hernia.? ? Bones and chest wall:? No suspicious bony lesions.? Ribs and thoracic spine appear intact throughout.? Thyroid gland unremarkable.? No axillary or supraclavicular adenopathy.? ? Abdomen:? Liver is heterogenous hepatic capsule is scalloped consistent with hepatic cirrhosis.? Spleen is enlarged at 13.3 cm ? IMPRESSION:? ? 1. No evidence of pulmonary embolism, aortic dissection or aneurysm.? 2. Partially visualized hepatic cirrhosis and splenomegaly ? ? ? Approved by: Jordan Monet M.D. on 04/26/2021 at 9:26? XR foot: Radiologist's Impression: FINDINGS:? ? Bones:? There are comminuted fractures involving the 2nd, 3rd and 4th mid metatarsals as well as an oblique intra-articular fracture through the base of the 1st proximal phalanx. ?No significant displacement.? Associated soft tissue swelling present without radiopaque foreign body. ? Soft tissues:? No tibiotalar joint effusion.? Achilles tendon appears normal.? ? ? IMPRESSION:? ? Comminuted 2nd through 4th metatarsal fractures Intra-articular oblique 1st proximal phalangeal fracture ? ? ? Approved by: Jordan Monet M.D. on 04/26/2021 at 10:43? CT scan - head: Radiologist's Impression: FINDINGS:? Image quality:? Excellent.? ? CSF spaces:? Basal cisterns are patent.? No extra-axial fluid collections.? Ventricles are normal in size and shape.? ? Brain:? No midline shift.? No intracranial masses or hemorrhage.? [place]-white matter interface is normal.? ? Skull and face:? Calvarium and visualized facial bones are intact, without suspicious lesions.? Right periorbital soft tissue swelling ? Sinuses:? Visualized sinuses and mastoids are clear.? ? IMPRESSION:? ? Unremarkable CT brain without intracranial hemorrhage or mass effect Incidental right periorbital soft tissue swelling ? ? ? Approved by: Jordan Monet M.D. on 04/26/2021 at 9:29? ECG Data Interpretation: Sinus rhythm at a rate of 110 Right bundle branch block Normal axis No acute ischemic changes MDM Narrative Medical decision making narrative: Acutely ill-appearing 45-year-old woman with significant hypotension complains of multiple falls suspected immediate right foot fracture and concerns for severe sepsis, endocarditis, pulmonary embolism, or cardiomyopathy with dramatic mottling to all skin, however mentating normally and quite cooperative. Workup is initiated Two lines, 4 blood cultures, blood work fluid resuscitation and IV antibiotics started to cover possible endocarditis, chest CT, and head CT due to multiple falls in last 24hrs. Lab work returns revealing multiple significant abnormalities including: -Acute renal failure with creatinine 3.17. BUn 36, K 5.2 with no acute EKG changes - elevated troponin .250 with no STEMI findings - elevated bili 1.7, ask 127, Alk fracisco 146 -leukocytosis with left shift and procalcitonin -chronic thrombocytopenia - elevated probnp Imaging studies demonstrate no consolidated pneumonia, no pulmonary embolism, no septic emboli. CT scan of the head is reassuring X-ray of the foot shows multiple midfoot fractures; Comminuted 2nd through 4th metatarsal fractures, Intra-articular oblique 1st proximal phalangeal fracture Echocardiogram demonstrates severe abnormalities and was reviewed in real-time and with Cardiology -severely dilated right ventricle with reduced right ventricle function septal flattening in both systole and diastole consistent with RV pressure overload -severely dilated right atrium with intra-atrial septum bowing from right to left consistent with elevated RAl systolic pressure -severe tricuspid regurgitation with concern for had vegetation on the ve ntricular side of the tricuspid valve septal leaflet -pulmonary artery pressure at 46 mmHg Patient is re-evaluated. At this time she has had of L of fluid however echocardiogram showed IVC collapsing greater than 50% with a sniff suggesting that she still is quite intravascularly dry. Lactic acid has come down from 3.9-2.0 Blood pressure remains with systolics in the mid 80s and maps running in the 65 range. Cardiac issues are again reviewed in detail with Cardiology. -Despite the right-sided heart failure fluid resuscitation can be more aggressive at this time which may benefit her acutely low volume status and acute renal failure. -The elevated troponin is more likely related to troponin leak from the severe right ventricular dysfunction rather than non-STEMI. She did not recommend heparinization at this time -the hypotension is more likely related to the right heart failure than sepsis and she did not recommend starting pressors at this time -her concern was for severe pulmonary hypertension given the dramatic right heart changes in the absence of pulmonary embolism -her recommendation was transfer to a facility with higher level of care including Cardiology for right heart catheterization as well as Nephrology Regarding infectious disease etiology -Covid19 negative -no obvious bacterial pneumonia or empyema. Urine suggests probable infection. Concern for vegetative lesion on tricuspid valve -Zosyn and vancomycin have been initiated after 4 blood cultures were obtained Orthopedic issues -right midfoot multiple fractures. She is placed in an orthopedic boot and this will need to be evaluated once the more life-threatening issues have been more fully addressed 1:55pm Will contact the [facility] regarding possible transfer, PCU bed 215 report given to transfer center 220 patient is updated. Skin is better perfused. Remains mildly tachycardic at 107 MAPat 63. Completely cognitively appropriate. Complaining of pain related to her foot fracture otherwise doing well 330T care is revieweh with Dr. Loo, pulmonary critical care dust brush assembler medical ICU [facility]. He takes sepsis the patient in transfer and which she will go to the [facility] facility. He did recommend stopping additional fluid resuscitation and giving her 120 cc bolus of Lasix and starting Lasix drip. If her blood pressure began to drop with that he recommended beginning norepi. Continuing antibiotics and requested that we place a central line on the left side in anticipation of a right heart catheterization needing right-sided access. 420 No complications with LIJ central line. Mild hypoxia in trendelenburg, O2 at 2 L NC. Pressure 78/54 (map 64) after line. Will begin norepi for transport as lasix is begining. Critical Care Time Critical Care Time Critical Care Time: Yes Total Critical Care Time: 94 Attestation: Critical care time is separate from other billable procedures. There is a high probability of a significant, sudden or life-threatening deterioration that requires my full and direct attention, intervention and personal management. This critical care time includes consultation with family and other consulting doctors, review of records, and interpretation of data from labs, EKGs and imaging as well as managements of severe right heart failure, pulmonary hypertension, systolic hypotension and extremity trauma Discharge Plan Departure Patient Disposition: [facility] Clinical Impression: Acute right heart failure, Pulmonary hypertension, Tricuspid valve vegetation, Multiple falls, Acute renal failure, Cirrhosis of liver, Congenital splenome samira, Hypotension Foot fracture, right Qualifiers: Encounter type: initial encounter Fracture type: closed Qualified Code(s): S92.901A - Unspecified fracture of right foot, initial encounter for closed fracture Prescriptions: No Action potassium chloride [Klor-Con M20] 20 mEq Tablet,Er Particles/Crystals 40 meq PO BIDWM Qty: 60 1RF albuterol sulfate 90 mcg/actuation HFA aerosol inhaler 2 puff INHALATION Q4-6H PRN (Reason: shortness of breath or wheezing) Qty: 8.5 0RF Rx Instructions: 1-2 puffs with a spacer every 2-4 hours as needed for wheezing, cough and solis rtness of breath trazodone 50 mg tablet 50 - 100 mg PO BEDTIME PRN (Reason: Sleep) 0RF citalopram 20 mg tablet 20 mg PO DAILY 0RF Label Comments: take 1 tablet by mouth once daily gabapentin 300 mg capsule 900 mg PO BID 0RF dicyclomine 10 mg capsule 20 mg PO DAILY 0RF Label Comments: take 2 capsules by mouth once daily oxycodone 5 mg tablet 5 mg PO BID PRN0RF methocarbamol 500 mg tablet 500 mg PO BEDTIME 0RF Hold Instructions: Home Medication placed on hold at Doctor's office cyclobenzaprine 10 mg tablet 10 mg PO BID PRN (Reason: muscle spasm) Qty: 60 1RF calcitonin (salmon) 200 unit/actuation spray,non-aerosol 1 spray intranasal (ALT) DAILY 90 Days Qty: 3.7 2RF Rx Instructions: sacral fx Referrals: Santiago Aguillon MD [Primary Care Provider] -
--- NOTE | 2021-04-26 09:34 | DI.CT.S_ITS ---
PROCEDURE: CT ANGIO CHEST PE PROTOCOL INDICATIONS: tachycardia, poor perfusion TECHNIQUE: After the administration of intravenous contrast, 2 mm thick sections acquired from the pulmonary apices to the posterior costophrenic angles. 3-dimensional maximum intensity projection (MIP) coronal and sagittal reformats were then acquired through the thorax. For radiation dose reduction, the following was used: automated exposure control, adjustment of mA and/or kV according to patient size. COMPARISON: [facility], MR, ABDOMEN W&WO CONTRAST, 10/31/2013, 17:43. [facility], , MR LUMBAR SPINE WO CON, 06/11/2020, 7:36. FINDINGS: Image quality: Excellent. Pulmonary arteries: Pulmonary arteries are normal in size, and demonstrate no intraluminal filling defects to suggest central pulmonary embolism. Lungs and pleura: Lungs are clear. No pleural effusions or pneumothorax. Central and peripheral airways are patent. Mediastinum: Heart size is normal, without pericardial effusion. No mediastinal or hilar adenopathy. Thoracic aorta is normal in caliber and enhancement. Esophagus is normal in caliber, without hiatal hernia. Bones and chest wall: No suspicious bony lesions. Ribs and thoracic spine appear intact throughout. Thyroid gland unremarkable. No axillary or supraclavicular adenopathy. Abdomen: Liver is heterogenous hepatic capsule is scalloped consistent with hepatic cirrhosis. Spleen is enlarged at 13.3 cm IMPRESSION: 1. No evidence of pulmonary embolism, aortic dissection or aneurysm. 2. Partially visualized hepatic cirrhosis and splenomegaly Approved by: Jordan Monet M.D. on 04/26/2021 at 9:26
--- NOTE | 2021-04-26 09:43 | DI.CT.S_ITS ---
PROCEDURE: CT HEAD/BRAIN WO CON INDICATIONS: multiple falls in 24hours TECHNIQUE: Noncontrast 4.5 mm thick angled axial sections acquired from the foramen magnum to the vertex, with coronal and sagittal reformats. For radiation dose reduction, the following was used: automated exposure control, adjustment of mA and/or kV according to patient size. COMPARISON: Located Within [facility], CT, CT HEAD/BRAIN WO CON, 05/24/2019, 15:34. FINDINGS: Image quality: Excellent. CSF spaces: Basal cisterns are patent. No extra-axial fluid collections. Ventricles are normal in size and shape. Brain: No midline shift. No intracranial masses or hemorrhage. Coughlin-white matter interface is normal. Skull and face: Calvarium and visualized facial bones are intact, without suspicious lesions. Right periorbital soft tissue swelling Sinuses: Visualized sinuses and mastoids are clear. IMPRESSION: Unremarkable CT brain without intracranial hemorrhage or mass effect Incidental right periorbital soft tissue swelling Approved by: Jordan Monet M.D. on 04/26/2021 at 9:29
--- NOTE | 2021-04-26 09:43 | DI.RAD.S_ITS ---
PROCEDURE: XR FOOT RT MIN 3V INDICATIONS: pain, echymosis, trauma TECHNIQUE: 3 views of the foot were acquired. COMPARISON: None. FINDINGS: Bones: There are comminuted fractures involving the 2nd, 3rd and 4th mid metatarsals as well as an oblique intra-articular fracture through the base of the 1st proximal phalanx. No significant displacement. Associated soft tissue swelling present without radiopaque foreign body. Soft tissues: No tibiotalar joint effusion. Achilles tendon appears normal. IMPRESSION: Comminuted 2nd through 4th metatarsal fractures Intra-articular oblique 1st proximal phalangeal fracture Approved by: Jordan Monet M.D. on 04/26/2021 at 10:43
[2021-04-26 09:45] LABS: Add Manual Diff / Slide Review NO; Basophils Absolute Auto 100 /uL (0-100); Basophils Percent Auto 0.5 % (0-2); Eosinophils Absolute Auto 100 /uL (0-450); Eosinophils Percent Auto 0.6 % (2-4); Hematocrit 34.6 % (36-46); Hemoglobin 11.5 g/dL (12.0-16.0); Lymphocytes Absolute Auto 1900 /uL (1100-4500); Lymphocytes Percent Auto 12.7 % (25-40); Mean Corpuscular HGB Conc 33.2 % (30-36); Mean Corpuscular Hemoglobin 35.1 PG (26-34); Mean Corpuscular Volume 105.5 fL (80-100); Monocytes Absolute Auto 1000 /uL (0-900); Monocytes Percent Auto 6.8 % (3-14); Neutrophils Absolute Auto 11600 /uL (1500-7000); Neutrophils Percent Auto 79.4 % (50-75); Platelet Count 84 X10^3/uL (150-400); Red Blood Cell Count 3.28 X10^6/uL (4.0-5.2); Red Cell Distribution Width 15.5 % (11.6-14.8); White Blood Cell Count 14.7 X10^3/uL (4.5-11.0)
[2021-04-26 09:57] LABS: Ethanol (ETOH) < 10 mg/dL; Lipase 131 U/L (23-300); Magnesium 1.6 mg/dL (1.6-2.3)
[2021-04-26 09:58] LABS: Alanine Aminotransferase 34 IU/L (<35); Albumin 3.7 g/dL (3.5-5.0); Albumin Globulin Ratio 0.9 (1.0-2.8); Alkaline Phosphatase 146 U/L (38-126); Aspartate Aminotransferase 127 IU/L (14-36); BUN Creatinine Ratio 11.4 (6-22); Bilirubin Total 1.7 mg/dL (0.2-1.3); Blood Urea Nitrogen 36 mg/dL (7-17); Calcium 8.6 mg/dL (8.4-10.2); Carbon Dioxide 18 mmol/L (22-32); Chloride 106 mmol/L (98-107); Estimated Glomerular Filt Rate 15.7 mL/min (>60); Glucose 88 mg/dL (70-100); HEMOLYSIS 18 (0-50); Lactate (Lactic Acid) 3.9 mmol/L (0.7-2.1); Potassium 5.2 mmol/L (3.4-5.1); Sodium 135 mmol/L (137-145); Total Protein 7.7 g/dL (6.3-8.2)
[2021-04-26 09:59] LABS: COVID19 -Nasal RAPID Negative (Negative)
--- NOTE | 2021-04-26 10:03 | DI.ECHO.S_ITS ---
[facility] +---------+ : : [address] : : : : [id number] : : : : Phone: [phone] Echocardiogram Report + + :Name: VISHAL VAUGHN Study Date: 04/26/2021 Height: 65 in : :[facility] ReadingLocation: Weight: 151 lb: : Gender: Female BSA: 1.8 m2 : :: 1975 Age: 45 yrs BP: 80/52 mmHg: :Reason For Study: Suspected endocarditis : :Ordering Physician: Mariely : :Leonard Performed By: Sher Narvaez : :Referring: MARIELY ROCHA L : + + Interpretation Summary Sinus tachycardia with heart rate 103-107 bpm. The left ventricle is normal in size. The left ventricular ejection fraction is normal. The ejection fraction is estimated to be 55-60%. RV is severely dilated with moderately reduced RV function. There is a septal flattening in systole and diastole, consistent with RV pressure overload. The right atrium is severely dilated as well with interatrial septum bowing from right to left. This finding is consistent with elevated RA systolic pressure. There is severe eccentric septally directed tricuspid regurgitation. Otherwise no valvular abnormalities. There is an independenly mobile filamentous lesion on the ventricular side of the tricuspid valve septal leaflet. This finding is concerning for vegetation. Estimated PA systolic pressure is 46 mm Hg assuming RA pressure of 15 mm Hg. Compared to prior study 07/18/2013 RV dilation has gotten worse. Septal flattening has gotten much worse. Small filamentous lesion on the tricuspid valve is new. TR progressed from moderate to severe. Previously described picc line in RA is no longer present. Previously described ascites is no longer present. PA systolic pressure is down from 54 to 46 mm Hg. Procedure: A two-dimensional transthoracic echocardiogram with color flow and Doppler was performed. The study quality was technically adequate. Comparison is made with the echocardiogram of 07/18/2013. The heart rate ranged between 103 - 107 bpm during the study. Left Ventricle: The left ventricle is normal in size and wall thickness. Left ventricular systolic function is probably normal. No real 2 chamber view. Paradoxical septal motion is consistent with right ventricular volume overload. The interventricular septum is flattened, consistent with a right ventricular pressure/volume condition. Diastolic function could not be accurately assessed due to tachycardia. Right Ventricle: The right ventricle is severely dilated. Right ventricular systolic function is moderately reduced. Atria: The left atrial size is normal. The right atrium is severely dilated. There is no Doppler evidence for an interatrial shunt. Mitral Valve: There is mild mitral annular calcification. There is no mitral regurgitation noted. Aortic Valve: The aortic valve opens well. The aortic valve is trileaflet. There is mild aortic valve sclerosis. No aortic regurgitation is present. Tricuspid Valve: Malcoaptation of tricuspid valve leaflets. Potentially small vegitation on the PTVL. See slide 44, 47, 48. There is severe tricuspid regurgitation. The right ventricular systolic pressure is estimated to be at least 46 mmHg based on an estimated right atrial pressure of 15 mm Hg. Pulmonic Valve: The pulmonic valve is not well seen, but is grossly normal. There is mild pulmonic regurgitation. Great Vessels: The aortic root is normal size. The ascending aorta is normal in size. The aortic arch is normal in size. The IVC is of normal diameter and collapses greater than 50% with a sniff. This suggests a low right atrial pressure of 3 mm Hg. Pericardium/ Pleura There is no pericardial effusion. There is an anterior echo-free space consistent with a fat pad. There is no pleural effusion. MMode/2D Measurements & Calculations LVIDd: 3.4 cm LVOT diam: 1.7 cm LVIDs: 1.9 cm Ao root diam: 2.4 cm FS: 44.2 % asc Aorta Diam: 2.6 cm IVSd: 0.74 cm Ao Arch Diam (Prox Trans): 2.4 cm LVPWd: 0.89 cm LV webb. diameter/BSA (cm/m^2): 1.9 LV sys. diameter/BSA (cm/m^2): 1.1 LA A2 area: 9.9 cm2 RA long axis: 5.8 cm LA A4 area: 14.0 cm2 RA area: 22.8 cm2 LA length (vol): 4.5 cm RA vol: 76.0 ml LA vol: 25.8 ml RA : 43.3 ml/m2 LA vol index: 14.7 ml/m2 IVC diam: 3.3 cm TAPSE: 1.4 cm Doppler Measurements & Calculations Ao V2 max: 123.0 cm/sec LVOT Max Rui: 61.6 cm/sec Ao V2 mean: 83.1 cm/sec LV V1 max P.5 mmHg Ao max P.0 mmHg LV V1 VTI: 10.3 cm Ao mean P.0 mmHg CARRIE(I,D): 1.4 cm2 Ao V2 VTI: 16.6 cm CARRIE(V,D): 1.1 cm2 sev ratio: 0.62 CARRIE indexed to BSA (cm^2/m^2): 0.80 MV E max rui: 61.6 cm/sec TR max rui: 276.2 cm/sec MV A max rui: 60.7 cm/sec TR max P.5 mmHg MV E/A: 1.0 PA V2 max: 59.1 cm/sec MV dec time: 0.16 sec PA V2 mean: 46.9 cm/sec PA mean P.93 mmHg PA pr(Accel): 39.6 mmHg SV(LVOT): 23.3 ml Electronically signed by: Cindi Flores M.D. on Reading Physician:04/26/2021 01:09 PM
[2021-04-26 10:14] LABS: Procalcitonin 0.84 ng/mL (<0.5)
[2021-04-26 10:23] LABS: NT-proBNP (BNP-Adult 18+) 59100 pg/mL (<125)
[2021-04-26] MEDS: SODIUM CHLORIDE 0.9% 1,000 ML 1000 ML IV ×3 (10:30→13:56)
[2021-04-26] MEDS: THIAMINE 100 MG in SODIUM CHLORIDE 0.9% 100 ML 404 ML IV (10:31)
[2021-04-26] MEDS: PIPERACILLIN/TAZO 4.5 GM in SODIUM CHLORIDE 0.9% 100 ML 200 ML IV (10:34)
[2021-04-26 11:07] LABS: Appearance Urine UA CLOUDY; Bilirubin Urine UA 1+ (NEGATIVE); Color Urine UA YELLOW; Glucose Urine UA NEGATIVE (Negative); Ketones Urine UA TRACE (NEGATIVE); Leukocyte Esterase Urine UA TRACE (NEGATIVE); Nitrite Urine UA NEGATIVE (Negative); Occult Blood Urine UA 3+ (Negative); Protein Urine UA 3+ (Negative); Specific Gravity Urine UA 1.025 (1.000-1.035); Urobilinogen Urine UA 0.2 E.U./dL (0.2)
--- NOTE | 2021-04-26 11:11 | PC.NURSE ---
Patient recently started drinking again after 8 yrs of sobriety. Patient had some black/green sluggy diarrhea last week. Has been feeling weak, dizzy and ringing in her ears. Patient presents with swelling and bruising to right foot and ankle, right eye swollen and bruised from one of her falls. Generalized mottling. I really didn't want to come in, but my foot was really bothering me
[2021-04-26 11:13] LABS: Ictotest Urine Negative (Negative)
[2021-04-26 11:14] LABS: RBC Urine 10-30/HPF (0-5/HPF); Squamous Epithelial Cell Urine 1-5 /HPF (0-5/HPF); WBC Urine 5-10/HPF (0-5/HPF)
[2021-04-26 11:15] LABS: Bacteria Urine Many (>30); Culture Indicated Urine Specimen Cultured
[2021-04-26 11:15] LABS: Pregnancy Test Urine Negative (Negative)
--- NOTE | 2021-04-26 11:15 | PC.NURSE ---
2 blood cultures obtained
[2021-04-26] MEDS: VANCOMYCIN 1,000 MG/200 ML PIGGYBACK 200 MG IV (11:34)
[2021-04-26 11:42] LABS: Reflexed Lactate in 2 Hours Y
[2021-04-26] MEDS: HYDROMORPHONE 0.5 MG INJ IV ×2 (13:12→15:38)
[2021-04-26 13:23] LABS: UR Morphine/Opiate cutoff 300 Positive (Negative); Ur Creatinine Normal (Normal); Ur Specific Gravity Normal (Normal); Urine Amphetamines Negative (Negative); Urine Barbiturates Negative (Negative); Urine Benzodiazepines Negative (Negative); Urine Cocaine Negative (Negative); Urine MDMA Negative (Negative); Urine Methadone Negative (Negative); Urine Methamphetamines Negative (Negative); Urine Oxycodone Positive (Negative); Urine Phencyclidine Negative (Negative); Urine Tetrahydrocannabinol Negative (Negative); Urine Tricyclic Antidepressant Positive (Negative); Urine pH Normal (Normal)
[2021-04-26] MEDS: FUROSEMIDE 120 MG in SODIUM CHLORIDE 0.9% 50 ML 124 ML IV (15:56)
--- NOTE | 2021-04-26 16:13 | DI.RAD.S_ITS ---
PROCEDURE: XR CHEST 1V INDICATIONS: Central line placement TECHNIQUE: One view of the chest was acquired. COMPARISON: , CR, XR CHEST 2V, 07/25/2019, 13:44. FINDINGS: Surgical changes and devices: Left IJ central venous line tip at the brachiocephalic/SVC junction. No pneumothorax. Lungs and pleura: Lungs are clear. No pleural effusions or pneumothorax. Mediastinum: Mediastinal contours appear normal. Heart size is normal. Bones and chest wall: No suspicious bony lesions. Overlying soft tissues appear unremarkable. Old healed right-sided rib fractures noted. IMPRESSION: Left IJ central venous line tip at the brachiocephalic/SVC junction. No pneumothorax. Approved by: Jordan Monet M.D. on 04/26/2021 at 16:15
[2021-04-26] MEDS: NOREPINEPHRINE BITARTRATE/D5W 4 MG/250 ML PLAST..BAG 30 MG IV (16:26)
[2021-04-26] MEDS: FUROSEMIDE 100 MG in SODIUM CHLORIDE 0.9% 50 ML IV (16:28)
--- NOTE | 2021-04-26 16:41 | PC.NURSE ---
Patient is transported with norepinephrine bitartrate and furosemide drip infusing.
== END 2021-04-26 16:54 | disposition short-term general hospital (02) ==
PROVIDERS: Emergency Provider Emergency Medicine; PCP Family Medicine
DX: I50.9 Heart failure, unspecified (principal); I27.20 Pulmonary hypertension, unspecified; I33.0 Acute and subacute infective endocarditis; N17.9 Acute kidney failure, unspecified; K74.60 Unspecified cirrhosis of liver; I95.9 Hypotension, unspecified; R16.1 Splenomegaly, not elsewhere classified; S92.321A Displaced fracture of second metatarsal bone, right foot, initial encounter for closed fracture; S92.331A Displaced fracture of third metatarsal bone, right foot, initial encounter for closed fracture; S92.341A Displaced fracture of fourth metatarsal bone, right foot, initial encounter for closed fracture; S92.411A Displaced fracture of proximal phalanx of right great toe, initial encounter for closed fracture; W18.30XA Fall on same level, unspecified, initial encounter; S00.11XA Contusion of right eyelid and periocular area, initial encounter; Z91.81 History of falling; Z20.822 Contact with and (suspected) exposure to COVID-19
CPT/HCPCS: 36415; 70450; 71045; 71275; 73630; 80053; 80305; 80320; 81001; 81025; 83605; 83690; 83735; 83880; 84145; 84484; 85025; 87040; 87077; 87086; 87186; 87635; 93005; 93306; 96361; 96365; 96367; 96368; 96375; 99285; 99291; 99292; C9803; J1170; J1940; J2543; Q9967

== ENCOUNTER → 2021-05-13 08:28 | Outpatient (ROUT) | payer MEDICARE, MEDICAID, SELFPAY ==
[2020-04-23 15:39] VITALS: BMI 20.7
[2021-05-13 08:44] LABS: BUN Creatinine Ratio 19.3 (6-22); Blood Urea Nitrogen 22 mg/dL (7-17); Calcium 7.9 mg/dL (8.4-10.2); Carbon Dioxide 38 mmol/L (22-32); Chloride 94 mmol/L (98-107); Estimated Glomerular Filt Rate 51.1 mL/min (>60); Glucose 83 mg/dL (70-100); HEMOLYSIS < 15 (0-50); Potassium 3.7 mmol/L (3.4-5.1); Sodium 138 mmol/L (137-145)
== END ==
PROVIDERS: PCP Family Medicine; Visit Provider Family Medicine
DX: E87.6 Hypokalemia (principal); E87.1 Hypo-osmolality and hyponatremia; R60.0 Localized edema; I27.20 Pulmonary hypertension, unspecified
CPT/HCPCS: 80048

== ENCOUNTER → 2021-06-10 11:47 | Outpatient (ROUT) | payer MEDICARE, MEDICAID, SELFPAY ==
[2020-04-23 15:39] VITALS: BMI 20.7
[2021-06-10 12:05] LABS: BUN Creatinine Ratio 18.3 (6-22); Blood Urea Nitrogen 17 mg/dL (7-17); Calcium 9.7 mg/dL (8.4-10.2); Carbon Dioxide 31 mmol/L (22-32); Chloride 99 mmol/L (98-107); Estimated Glomerular Filt Rate > 60.0 mL/min (>60); Glucose 94 mg/dL (70-100); HEMOLYSIS 31 (0-50); Potassium 2.9 mmol/L (3.4-5.1); Sodium 140 mmol/L (137-145)
== END ==
PROVIDERS: PCP Family Medicine; Visit Provider Family Medicine
DX: E87.6 Hypokalemia (principal); E87.1 Hypo-osmolality and hyponatremia; R60.0 Localized edema; I27.20 Pulmonary hypertension, unspecified
CPT/HCPCS: 80048

== ENCOUNTER 2021-08-01 08:15 | Emergency (ER) | payer MEDICARE, MEDICAID, SELFPAY ==
[2020-04-23 15:39] VITALS: BMI 20.7
[2021-08-01] VITALS (20 sets, daily range): BP systolic 89–140; BP diastolic 51–83; PULSE 62–79; RESP 10–19; TEMP 36.8; O2SAT 92–100; BMI 25.1
--- NOTE | 2021-08-01 09:00 | ED.WEAKNESS ---
HPI - Weakness General Chief complaint: Weakness Stated complaint: Falling down, hx of low BP Time Seen by Provider: 08/01/21 08:27 Source: patient Mode of arrival: Family Vehicle History of Present Illness HPI Narrative: 45F smoker with history of alcohol abuse, kidney disease, liver disease, electrolyte abnormalities presents with a family friend and a chief complaint of generalized weakness and low velocity falls over the past day or 2 because of weakness. She denies any injuries as a consequence of her falls and states that she feels like she has in the past when her potassium was low. She denies any nausea, vomiting or diarrhea. She denies any urinary complaints such as dysuria, frequency or urgency. She denies any blurred vision, trouble speech or focal extremity weakness. She states that she on the whole just feels generally weak. She has relatively recently been placed on a low-dose naltrexone to help wean her off of chronic opioids. She states that she has not been drinking in quite some time. Related Data Home Medications Medication Instructions Recorded Confirmed citalopram 20 mg tablet 20 mg PO DAILY 05/24/19 11/14/20 dicyclomine 10 mg capsule 20 mg PO DAILY 05/24/19 11/14/20 gabapentin 300 mg capsule 900 mg PO BID 05/24/19 11/14/20 trazodone 50 mg tablet 50 - 100 mg PO BEDTIME PRN 05/24/19 11/14/20 methocarbamol 500 mg tablet 500 mg PO BEDTIME 05/28/20 11/14/20 oxycodone 5 mg tablet 5 mg PO BID PRN 05/28/20 11/14/20 Previous Rx's Medication Instructions Recorded potassium chloride 20 mEq 40 meq PO BIDWM #60 tab 07/24/19 tablet,extended release(part/cryst) (Klor-Con M) albuterol sulfate 90 mcg/actuation 2 puff INHALATION Q4-6H PRN #8.5 07/25/19 aerosol inhaler gram calcitonin (salmon) 200 1 spray INTRANASAL (ALT) DAILY 90 09/03/20 unit/actuation nasal spray Days #3.7 ml cyclobenzaprine 10 mg tablet 10 mg PO BID PRN #60 tab 11/14/20 Allergies Allergy/AdvReac Type Severity Reaction Status Date / Time duloxetine AdvReac Verified 04/26/21 09:38 Review of Systems Review of Systems Narrative: GENERAL: See HPI HEENT: Denies sinus pain, ear pain, sore throat, difficulty swallowing, dizziness. RESPIRATORY: Denies dyspnea, cough, wheezing, hemoptysis, sputum. CARDIOVASCULAR: Denies chest pain, palpitations, orthopnea, edema, GASTROINTESTINAL: Denies nausea, vomiting, abdominal pain, diarrhea, constipation, melena. : Denies dysuria, frequency, incontinence, hematuria, urinary retention. MUSCULOSKELETAL: denies weakness, joint pain, or bony pain SKIN: Denies rash, skin lesions, or other NEUROLOGIC: Denies weakness, headache, numbness, change in speech, confusion, seizures, incoordination. PSYCHIATRIC: No concerning psychosocial issues. 12 point review of systems is negative except for those stated above Patient History Medical History Anxiety Chronic high back pain Depression Facet arthropathy, lumbar H/O ETOH abuse Herniated nucleus pulposus, lumbar Osteopenia of lumbar spine Pulmonary hypertension Sacral fracture Scoliosis Surgical History No pertinent past surgical history Family History Mother Afib Grandmother Heart disease Degenerative disk disease Osteoporosis Social History household members: family Smoking Status: Current every day smoker alcohol intake: former Smoking Status: Current every day smoker tobacco type: cigarettes alcohol intake frequency: 3 or more drinks per day Alcohol type: hard liquor Substance Use Type: marijuana Exam Narrative Exam Narrative: GENERAL: [45] year old patient appears stated age. Well-developed patient, in mild distress. Sleepy but easily arousable, GCS 15 HEAD: Atraumatic. Normocephalic. EYES: Pupils equal round and reactive. Extraocular motions intact. No scleral icterus. No injection or drainage. ENT: Nose without bleeding, purulent drainage. Throat without erythema, tonsillar hypertrophy or exudate. Airway patent. NECK: Trachea midline. Non tender CARDIOVASCULAR: Regular rate and rhythm without murmurs, gallops, or rubs. RESPIRATORY: Clear to auscultation. Breath sounds equal bilaterally. No wheezes, rales, or rhonchi. GASTROINTESTINAL: Abdomen soft, non-tender, nondistended. EXTREMITIES: No edema or joint tenderness. BACK: Nontender without deformity or crepitance. No flank tenderness. NEURO: AOx3. SKIN: No rash or erythema of visible areas Initial Vital Signs Initial Vital Signs: Vital Signs Temperature 98.3 F 08/01/21 08:35 Pulse Rate 72 08/01/21 08:35 Respiratory Rate 18 08/01/21 08:35 Blood Pressure 113/68 08/01/21 08:35 Pulse Oximetry 98 08/01/21 08:35 Course Orders Ordered: ED Orders 08/01/21 11:21 CT head/brain wo con Stat Discontinued Medications Sodium Chloride (Normal Saline 0.9%) 1,000 mls @ 1,000 mls/hr IV BOLUS ONE Stop: 08/01/21 09:59 Last Infusion: 08/01/21 11:35 Dose: 0 mls/hr Documented by: Admin: 08/01/21 09:37 Dose: 1,000 mls/hr Documented by: SHIKHA Sodium Chloride (Normal Saline 0.9%) 500 mls @ 1,000 mls/hr IV BOLUS ONE Stop: 08/01/21 11:50 Last Infusion: 08/01/21 13:04 Dose: 0 mls/hr Documented by: Admin: 08/01/21 12:05 Dose: 1,000 mls/hr Documented by: ATAJAYDAOR Vital Signs Vital signs: Vital Signs - 8 hr 08/01/21 11:30 08/01/21 12:00 08/01/21 12:08 Pulse Rate 69 72 Respiratory Rate 19 10 L Blood Pressure 98/72 Pulse Oximetry 94 92 08/01/21 12:15 08/01/21 12:30 08/01/21 12:31 Pulse Rate 70 70 71 Respiratory Rate 10 L 10 L 10 L Blood Pressure 104/62 109/62 Pulse Oximetry 93 92 94 08/01/21 12:45 08/01/21 12:57 08/01/21 12:58 Pulse Rate 68 73 Respiratory Rate 11 L 10 L Blood Pressure 111/67 127/69 113/61 Pulse Oximetry 94 98 MDM - Weakness Lab Data Result diagrams: 08/01/21 09:16 08/01/21 09:16 Labs: Lab Results 08/01/21 08/01/21 08/01/21 Range/Units 09:16 09:16 09:16 WBC 7.5 (4.5-11.0) X10^3/uL RBC 3.86 L (4.0-5.2) X10^6/uL Hgb 12.9 (12.0-16.0) g/dL Hct 37.6 (36-46) % MCV 97.3 (80-100) fL MCH 33.4 (26-34) PG MCHC 34.3 (30-36) % RDW 14.7 (11.6-14.8) % Plt Count 73 L (150-400) X10^3/uL Neut % (Auto) 77.3 H (50-75) % Lymph % (Auto) 16.3 L (25-40) % Coleman % (Auto) 5.1 (3-14) % Eos % (Auto) 0.8 L (2-4) % Baso % (Auto) 0.5 (0-2) % Neut # (Auto) 5800 (9523-3813) /uL Lymph # (Auto) 1200 (9352-4414) /uL Coleman # (Auto) 400 (0-900) /uL Eos # (Auto) 100 (0-450) /uL Baso # (Auto) 0 (0-100) /uL PT 13.9 H (10.1-12.7) SECONDS INR 1.2 (0.9-1.3) Sodium 144 (137-145) mmol/L Potassium 3.9 (3.4-5.1) mmol/L Chloride 112 H (98-107) mmol/L Carbon Dioxide 26 (22-32) mmol/L BUN 18 H (7-17) mg/dL Creatinine 0.99 (0.52-1.04) mg/dL Estimated GFR > 60 (>60) mL/min BUN/Creatinine Ratio 18.2 (6-22) Glucose 90 (70-100) mg/dL Calcium 9.2 (8.4-10.2) mg/dL Magnesium 2.1 (1.6-2.3) mg/dL Total Bilirubin 1.2 (0.2-1.3) mg/dL AST 35 (14-36) IU/L ALT 23 (<35) IU/L Alkaline Phosphatase 87 (38-126) U/L Total Creatine Kinase 43 (30-135) U/L CK-MB (CK-2) TNP CK-MB (CK-2) Rel Index TNP Troponin I < 0.012 (0.01-0.034) ng/mL Total Protein 8.0 (6.3-8.2) g/dL Albumin 4.1 (3.5-5.0) g/dL Globulin 3.9 (1.7-4.1) g/dL Albumin/Globulin Ratio 1.1 (1.0-2.8) Imaging Data CT scan - head: Radiologist Impression: [address] [address] [address] Scan Report Signed Patient: Gely Wilson MR#: [id number] : 1975 Acct:[id number] Age/Sex: 45 / F Date of Service: 08/01/21 Loc: ED Accession Number: [id number] ?? Procedure: CT head/brain wo con Ordering Provider: Ke Oquendo D.O. PROCEDURE:? CT HEAD/BRAIN WO CON ? INDICATIONS:? falls, weakness ? TECHNIQUE:? Noncontrast 4.5 mm thick angled axial sections acquired from the foramen magnum to the vertex, with coronal and sagittal reformats.? For radiation dose reduction, the following was used:? automated exposure control, adjustment of mA and/or kV according to patient size.? ? COMPARISON:? [facility], CT, CT HEAD/BRAIN WO CON, 04/26/2021, 9:45. ? FINDINGS:? Image quality:? Excellent.? ? CSF spaces:? Basal cisterns are patent.? No extra-axial fluid collections.? Ventricles are normal in size and shape.? ? Brain:? No midline shift.? No intracranial masses or hemorrhage.? Coughlin-white matter interface is normal.? ? Skull and face:? Calvarium and visualized facial bones are intact, without suspicious lesions.? ? Sinuses:? Visualized sinuses and mastoids are clear.? ? IMPRESSION:? ? 1. No acute intracranial abnormalities. ? ? ? Dictated by: Issac Armijo M.D. on 08/01/2021 at 11:30 ? ? Approved by: Issac Armijo M.D. on 08/01/2021 at 11:32 ? MDM Narrative Medical decision making narrative: Multiple etiologies for patient's symptoms considered including: [Renal failure versus electrolyte abnormality versus dehydration versus other Patient's symptoms improved over duration of stay with above-stated therapies. She is ambulating through the department with a steady gait Findings and discharge diagnosis discussed with patient/family followed by verbalization of understanding Return precautions discussed with patient/family whom verbalize understanding. Discharge Plan Departure Patient Disposition: Home Clinical Impression: Generalized weakness Instructions: DI for Muscle Weakness Activity Restrictions/Additional Instructions: *You have been diagnosed with [generalized weakness. As we discussed your history and physical exam as well as labs and imaging are very reassuring. There is no evidence that your kidneys are acting up, your electrolytes are reassuring your CT scan shows no significant finding. *What to do: *Please continue to take your regular medications as directed. [ ] New medication prescriptions sent to your pharmacy: [ ] [ ] New medication written as a paper prescription [x ] No new medications given *Please follow up with your primary care provider in 2-3 days, call for an appointment. Let them know you were seen in the Emergency Department and that we ask that you be seen in follow up. We will electronically transmit a record of today's note if your PCP is in our system *If you do not have a primary care provider please contact the [facility] Resource line at [phone]. They will ask some questions about your medical history and help get you set up with a doctor in the community. *Return to Emergency Department if you should have any new, worsening or concerning symptoms, such as [fever greater than 101 F, shaking chills, worsening pain, persistent vomiting or other bothersome symptoms] Prescriptions: No Action potassium chloride [Klor-Con M20] 20 mEq Tablet,Er Particles/Crystals 40 meq PO BIDWM Qty: 60 1RF albuterol sulfate 90 mcg/actuation HFA aerosol inhaler 2 puff INHALATION Q4-6H PRN (Reason: shortness of breath or wheezing) Qty: 8.5 0RF Rx Instructions: 1-2 puffs with a spacer every 2-4 hours as needed for wheezing, cough and shortness of breath trazodone 50 mg tablet 50 - 100 mg PO BEDTIME PRN (Reason: Sleep) 0RF citalopram 20 mg tablet 20 mg PO DAILY 0RF Label Comments: take 1 tablet by mouth once daily gabapentin 300 mg capsule 900 mg PO BID 0RF dicyclomine 10 mg capsule 20 mg PO DAILY 0RF Label Comments: take 2 capsules by mouth once daily oxycodone 5 mg tablet 5 mg PO BID PRN0RF methocarbamol 500 mg tablet 500 mg PO BEDTIME 0RF Hold Instructions: Home Medication placed on hold at Doctor's office cyclobenzaprine 10 mg tablet 10 mg PO BID PRN (Reason: muscle spasm) Qty: 60 1RF calcitonin (salmon) 200 unit/actuation spray,non-aerosol 1 spray intranasal (ALT) DAILY 90 Days Qty: 3.7 2RF Rx Instructions: sacral fx Referrals: Santiago Aguillon MD [Primary Care Provider] -
[2021-08-01 09:33] LABS: Add Manual Diff / Slide Review NO; Basophils Absolute Auto 0 /uL (0-100); Basophils Percent Auto 0.5 % (0-2); Eosinophils Absolute Auto 100 /uL (0-450); Eosinophils Percent Auto 0.8 % (2-4); Hematocrit 37.6 % (36-46); Hemoglobin 12.9 g/dL (12.0-16.0); Lymphocytes Absolute Auto 1200 /uL (1100-4500); Lymphocytes Percent Auto 16.3 % (25-40); Mean Corpuscular HGB Conc 34.3 % (30-36); Mean Corpuscular Hemoglobin 33.4 PG (26-34); Mean Corpuscular Volume 97.3 fL (80-100); Monocytes Absolute Auto 400 /uL (0-900); Monocytes Percent Auto 5.1 % (3-14); Neutrophils Absolute Auto 5800 /uL (1500-7000); Neutrophils Percent Auto 77.3 % (50-75); Platelet Count 73 X10^3/uL (150-400); Red Blood Cell Count 3.86 X10^6/uL (4.0-5.2); Red Cell Distribution Width 14.7 % (11.6-14.8); White Blood Cell Count 7.5 X10^3/uL (4.5-11.0)
[2021-08-01] MEDS: SODIUM CHLORIDE 0.9% 1,000 ML 1000 ML IV (09:37)
[2021-08-01 09:38] LABS: Alanine Aminotransferase 23 IU/L (<35); Albumin 4.1 g/dL (3.5-5.0); Albumin Globulin Ratio 1.1 (1.0-2.8); Alkaline Phosphatase 87 U/L (38-126); Aspartate Aminotransferase 35 IU/L (14-36); BUN Creatinine Ratio 18.2 (6-22); Bilirubin Total 1.2 mg/dL (0.2-1.3); Blood Urea Nitrogen 18 mg/dL (7-17); Calcium 9.2 mg/dL (8.4-10.2); Carbon Dioxide 26 mmol/L (22-32); Chloride 112 mmol/L (98-107); Creatine Kinase 43 U/L (30-135); Estimated Glomerular Filt Rate > 60 mL/min (>60); Globulin 3.9 g/dL (1.7-4.1); Glucose 90 mg/dL (70-100); HEMOLYSIS < 15 (0-50); Magnesium 2.1 mg/dL (1.6-2.3); Potassium 3.9 mmol/L (3.4-5.1); Sodium 144 mmol/L (137-145)
[2021-08-01 09:41] LABS: INR 1.2 (0.9-1.3); Prothrombin Time 13.9 SECONDS (10.1-12.7)
[2021-08-01 09:49] LABS: Troponin I < 0.012 ng/mL (0.01-0.034)
--- NOTE | 2021-08-01 11:21 | DI.CT.S_ITS ---
PROCEDURE: CT HEAD/BRAIN WO CON INDICATIONS: falls, weakness TECHNIQUE: Noncontrast 4.5 mm thick angled axial sections acquired from the foramen magnum to the vertex, with coronal and sagittal reformats. For radiation dose reduction, the following was used: automated exposure control, adjustment of mA and/or kV according to patient size. COMPARISON: [facility], CT, CT HEAD/BRAIN WO CON, 04/26/2021, 9:45. FINDINGS: Image quality: Excellent. CSF spaces: Basal cisterns are patent. No extra-axial fluid collections. Ventricles are normal in size and shape. Brain: No midline shift. No intracranial masses or hemorrhage. Coughlin-white matter interface is normal. Skull and face: Calvarium and visualized facial bones are intact, without suspicious lesions. Sinuses: Visualized sinuses and mastoids are clear. IMPRESSION: 1. No acute intracranial abnormalities. Dictated by: Issac Armijo M.D. on 08/01/2021 at 11:30 Approved by: Issac Armijo M.D. on 08/01/2021 at 11:32
[2021-08-01] MEDS: SODIUM CHLORIDE 0.9% 500 ML 1000 ML IV (12:05)
--- NOTE | 2021-08-01 13:01 | PC.NURSE ---
Pt ambulated around unit with steady gait, well tolerated.
== END 2021-08-01 13:17 | disposition home or self-care (01) ==
PROVIDERS: Emergency Provider Emergency Medicine; PCP Family Medicine
DX: R53.1 Weakness (principal); Z91.81 History of falling
CPT/HCPCS: 70450; 80053; 82550; 83735; 84484; 85025; 85610; 93005; 93010; 99284

== ENCOUNTER 2021-09-26 17:55 | Emergency (ER) | payer MEDICARE, MEDICAID, SELFPAY ==
[2020-04-23 15:39] VITALS: BMI 20.7
[2021-09-26 18:16] VITALS: PULSE 90; RESP 18; TEMP 36.2; O2SAT 95; BMI 23.1
--- NOTE | 2021-09-26 18:20 | DI.RAD.S_ITS ---
PROCEDURE: XR KNEE RT 3V INDICATIONS: Pain, Swelling TECHNIQUE: 3 views of the knee were acquired. COMPARISON: None. FINDINGS: Bones: No fractures or dislocations. No suspicious bony lesions. Soft tissues: No joint effusion. No suspicious soft tissue calcifications. IMPRESSION: No right knee fracture or dislocation. No significant joint effusion. Dictated by: Jacob Rose M.D. on 09/26/2021 at 18:45 Approved by: Jacob Rose M.D. on 09/26/2021 at 18:45
--- NOTE | 2021-09-26 21:33 | ED_ITS ---
HPI - Extremity Injury (Lower) General Chief Complaint: Extremity Injury, Lower Stated Complaint: right knee is swollen/not feeling correct Time Seen by Provider: 09/26/21 21:33 Source: patient Mode of arrival: Ambulatory History of Present Illness HPI Narrative: 46-year-old woman with a complicated past medical history including alcohol use disorder with liver failure renal failure who has been doing better in sobriety. She had a large trauma number of months ago with significant foot injury transported to [facility] with extended stay and multiple surgeries. She has got a boot to use and is waiting for outpatient follow-up with orthopedic doctors locally. She has a scooter that she typically uses. She uses name be tone daily an oxycodone 5 mg 4 times a day and she has both medications available to her at home. She has been having increasing right knee pain that she believes is a due to mechanics due to shifted gait with her broken foot. She is describing no fevers no increased swelling. Today she was doing quite a bit work at home using her scooter and by the time she was done with all of this her knee pain was significant enough that she was unable to bear any weight and comes into the ER for further evaluation. She describes no fevers, cough, palpitations, tachycardia, abdominal pain. Related Data Home Medications Medication Instructions Recorded Confirmed citalopram 20 mg tablet 20 mg PO DAILY 05/24/19 11/14/20 dicyclomine 10 mg capsule 20 mg PO DAILY 05/24/19 11/14/20 gabapentin 300 mg capsule 900 mg PO BID 05/24/19 11/14/20 trazodone 50 mg tablet 50 - 100 mg PO BEDTIME PRN Sleep 05/24/19 11/14/20 methocarbamol 500 mg tablet 500 mg PO BEDTIME 05/28/20 11/14/20 oxycodone 5 mg tablet 5 mg PO BID PRN 05/28/20 11/14/20 Previous Rx's Medication Instructions Recorded potassium chloride 20 mEq 40 meq PO BIDWM #60 tabs 07/24/19 tablet,extended release(part/cryst) (Klor-Con M) albuterol sulfate 90 mcg/actuation 2 puff inhalation Q4-6H PRN 07/25/19 aerosol inhaler shortness of breath or wheezing #8.5 grams calcitonin (salmon) 200 1 spray intranasal (ALT) DAILY 09/03/20 unit/actuation nasal spray sacral fx 3 months #3.7 mL cyclobenzaprine 10 mg tablet 10 mg PO BID PRN muscle spasm #60 11/14/20 tabs Allergies Allergy/AdvReac Type Severity Reaction Status Date / Time duloxetine AdvReac Verified 09/26/21 18:16 Review of Systems Review of Systems Narrative: Remainder of complete review of systems is otherwise unremarkable except for that included in the HPI. Patient History Medical History (Updated 09/26/21 @ 21:51 by Mariely Valle MD) Anxiety Chronic high back pain Depression Facet arthropathy, lumbar H/O ETOH abuse Herniated nucleus pulposus, lumbar Osteopenia of lumbar spine Pulmonary hypertension Right foot injury Sacral fracture Scoliosis Surgical History No pertinent past surgical history Family History Mother Afib Grandmother Heart disease Degenerative disk disease Osteoporosis Social History household members: family Smoking Status: Current every day smoker alcohol intake: former Smoking Status: Current every day smoker tobacco type: cigarettes alcohol intake frequency: other Alcohol type: hard liquor Substance Use Type: marijuana Exam Initial Vital Signs Initial Vital Signs: Vital Signs Temperature 97.2 F L 09/26/21 18:16 Pulse Rate 90 09/26/21 18:16 Respiratory Rate 18 09/26/21 18:16 Pulse Oximetry 95 09/26/21 18:16 Oxygen Delivery Method 09/26/21 18:16 General: Alert appropriate in no acute distress Respiratory: Able to speak in full sentences, no obvious respiratory distress Skin: No obvious rashes, spider hemangiomas and minor areas of bruising in various stages of healing, warm and dry Neurologic: Grossly intact no obvious asymmetries or abnormalities Psych: appropriate insight and affect, cooperative Extremity: Right knee with mild effusion decreased range of motion secondary to pain. No erythema or warmth. She has bilateral 1+ lower extremity edema. Right foot with chronic swelling over the dorsum. Procedures Orthopedic Splinting/Casting Right knee effusion: Time of procedure: 21:48 Side: right Lower Extremity Injury Location: knee Lower Extremity Immobilizer: knee immobilizer Post splinting neuro exam: intact Post splinting vascular exam: intact Placed by: Provider Course Orders Ordered: ED Orders 09/26/21 18:20 XR knee RT 3V Stat Vital Signs Vital signs: Vital Signs - 8 hr 09/26/21 18:16 Temperature 97.2 F L Pulse Rate 90 Respiratory Rate 18 Pulse Oximetry 95 Oxygen Delivery Method Room Air MDM - Extremity Injury (Lower) Imaging Data XR knee: Radiologist's Impression: FINDINGS:? ? Bones:? No fractures or dislocations.? No suspicious bony lesions.? ? Soft tissues:? No joint effusion.? No suspicious soft tissue calcifications.? ? ? IMPRESSION:? No right knee fracture or dislocation.? No significant joint effusion. ? ? Dictated by: Jacob Rose M.D. on 09/26/2021 at 18:45 ? ? MDM Narrative Medical decision making narrative: 46-year-old woman with recent trauma significant surgeries including the right foot using an immobilizer with significantly changed gait over the next number of months due to the trauma. She has been having increasing trouble secondary to mechanical gait changes in the right knee and today significant overuse with slight swelling and was unable to bear weight on the right knee. Comes in for further evaluation. X-ray is unremarkable. Exam is entirely consistent with overuse. No evidence of infection or DVT. She has all appropriate pain medication at home including anti-inflammatory and narcotics. A knee immobilizer is placed and she feels significant relief after this. She has crutches available at home. She has orthopedic follow-up and she is safe for home discharge. Discharge Plan Departure Patient Disposition: Home Clinical Impression: Effusion of knee joint right Instructions: DI for Knee Pain Activity Restrictions/Additional Instructions: Thank you for coming in today. Your knee is swollen from overuse and I believe the changed mechanics from your foot injury are absolutely related. You are currently on appropriate pain medication with both anti inflammatory and narcotics. I have given you a knee immobilizer for comfort only. Please feel free to use it as needed. Ice, elevation and avoiding quite as much activity issue had this morning will all be helpful. Please follow-up with your orthopedic surgeon Prescriptions: No Action potassium chloride [Klor-Con M20] 20 mEq Tablet,Er Particles/Crystals 40 meq PO BIDWM Qty: 60 1RF albuterol sulfate 90 mcg/actuation HFA aerosol inhaler 2 puff INHALATION Q4-6H PRN (Reason: shortness of breath or wheezing) Qty: 8.5 0RF Rx Instructions: 1-2 puffs with a spacer every 2-4 hours as needed for wheezing, cough and shortness of breath trazodone 50 mg tablet 50 - 100 mg PO BEDTIME PRN (Reason: Sleep) citalopram 20 mg tablet 20 mg PO DAILY Label Comments: take 1 tablet by mouth once daily gabapentin 300 mg capsule 900 mg PO BID dicyclomine 10 mg capsule 20 mg PO DAILY Label Comments: take 2 capsules by mouth once daily oxycodone 5 mg tablet 5 mg PO BID PRN methocarbamol 500 mg tablet 500 mg PO BEDTIME Hold Instructions: Home Medication placed on hold at Doctor's office cyclobenzaprine 10 mg tablet 10 mg PO BID PRN (Reason: muscle spasm) Qty: 60 1RF calcitonin (salmon) 200 unit/actuation spray,non-aerosol 1 spray intranasal (ALT) DAILY 90 Days Qty: 3.7 2RF Rx Instructions: sacral fx Referrals: Santiago Aguillon MD [Primary Care Provider] -
[2021-09-26 21:36] VITALS: BP 127/83; RESP 18
--- NOTE | 2021-09-26 22:01 | PC.NURSE ---
Provider applied knee immobilizer to pt right knee.
== END 2021-09-26 22:09 | disposition home or self-care (01) ==
PROVIDERS: Emergency Provider Emergency Medicine; PCP Family Medicine
DX: M25.461 Effusion, right knee (principal)
CPT/HCPCS: 73562; 99283

== ENCOUNTER → 2021-10-12 09:03 | Outpatient (CLI) | payer MEDICARE, MEDICAID, SELFPAY ==
[2020-04-23 15:39] VITALS: BMI 20.7
--- NOTE | 2021-10-12 | DI.MRI.S_ITS ---
PROCEDURE: MR KNEE RT WO CON INDICATIONS: Pain in right knee TECHNIQUE: Noncontrast sagittal PD fast spin echo and T2 fast spin echo with fat saturation, sagittal 3-D FLASH with fat saturation; coronal T1 spin echo and PD fast spin echo with fat saturation, and axial PD fast spin echo with fat saturation through the knee. COMPARISON: [facility], CR, XR KNEE RT 3V, 09/26/2021, 18:10. FINDINGS: Image quality: Excellent. Menisci: There is suggestion of subtle complex tear involving posterior horn of medial meniscus extending to both superior and inferior articulating surfaces. Lateral meniscus is intact. The meniscal root ligaments appear intact. Cruciate ligaments: The anterior and posterior cruciate ligaments appear intact. Medial structures: Low-grade medial collateral ligament sprain is seen.. The posterior oblique ligament, semimembranosus tendon insertions, oblique popliteal ligament, and meniscocapsular junction appear intact. Visualized portions of the pes anserinus tendons appear normal. No abnormal bursal fluid. Lateral structures: The lateral collateral ligament, long and short heads of the biceps femoris tendon appear intact. The popliteus tendon appears normal; the popliteofibular ligament appears intact. The posterosuperior and anteroinferior popliteomeniscal fascicles appear intact. The arcuate and fabellofibular ligaments appear intact, on either side of the lateral inferior geniculate artery. Iliotibial band appears normal. Anterior structures: The quadriceps and patellar tendons appear intact. Patellar alignment is normal. No femoral trochlear dysplasia or ventral trochlear prominence. No edema in the infrapatellar fat pad. Bones and cartilage: Extensive marrow edema involving proximal tibial shaft particularly over medial portion is seen extending to medial tibial plateau. Linear fracture lines are seen within the area of edema extending to medial tibial plateau. There is no depression. No other area of abnormal marrow signal. The cartilage of the medial and lateral femorotibial compartments, as well as the patellofemoral compartment, appears normal in thickness. Joint space: There is small to moderate amount of joint fluid. No Deng's cyst. Normal appearing synovial plicae are incidentally noted. IMPRESSION: 1. Nondisplaced medial tibial plateau fracture with extensive marrow edema small to moderate joint effusion. No other area of abnormal marrow signal. No intra-articular loose bodies. 2. Suggestion of subtle focal tear involving posterior horn of medial meniscus extending to both superior and inferior articulating surfaces. No focal lateral meniscal tear. 3. Low-grade MCL sprain. 4. Cruciate ligaments are intact. Findings were reported to Dr. Aguillon's office at 10:17 a.m. On 10/12/2021. Dictated by: Jacob Rose M.D. on 10/12/2021 at 10:11 Approved by: Jacob Rose M.D. on 10/12/2021 at 10:19
== END ==
PROVIDERS: PCP Family Medicine; Referring Provider Family Medicine; Visit Provider Family Medicine
DX: S82.144A Nondisplaced bicondylar fracture of right tibia, initial encounter for closed fracture (principal); S83.411A Sprain of medial collateral ligament of right knee, initial encounter; M25.561 Pain in right knee
CPT/HCPCS: 73721

== ENCOUNTER → 2021-10-15 10:30 | Outpatient (CLI) | payer MEDICARE, MEDICAID, SELFPAY ==
[2020-04-23 15:39] VITALS: BMI 20.7
--- NOTE | 2021-10-15 | DI.RAD.S_ITS ---
PROCEDURE: XR FOOT RT MIN 3V INDICATIONS: Pain in right ankle and joints of right foot TECHNIQUE: 3 views of the foot were acquired. COMPARISON: [facility], CR, XR FOOT RT MIN 3V, 04/26/2021, 9:56. FINDINGS: Bones: Multiple fractures are again seen. 2nd through 5th metatarsal. There is callus formation. There is abnormal angulation seen on the lateral projection. Base of the 5th metatarsal. 5th metatarsal fractures appear new in the interval compared to 04/26/2021. 1st digit proximal phalanx. There is progressive osseous destruction at the TMT joints. Bones appear osteopenic. No suspicious bony lesions. Soft tissues: No tibiotalar joint effusion. Achilles tendon appears normal. IMPRESSION: Multiple fractures in the foot. Fractures at the 5th metatarsal appear new in the interval compared to 04/26/2021. There is callus formation about these fractures. There is progressive osseous destruction at the tarsometatarsal joints. Consider diabetic arthropathy. Bones are osteopenic. Dictated by: Soham Banerjee M.D. on 10/15/2021 at 11:09 Approved by: Soham Banerjee M.D. on 10/15/2021 at 11:27
== END ==
PROVIDERS: PCP Family Medicine; Referring Provider Family Medicine; Visit Provider Family Medicine
DX: S92.351A Displaced fracture of fifth metatarsal bone, right foot, initial encounter for closed fracture (principal); S92.322A Displaced fracture of second metatarsal bone, left foot, initial encounter for closed fracture; S92.332A Displaced fracture of third metatarsal bone, left foot, initial encounter for closed fracture; S92.342A Displaced fracture of fourth metatarsal bone, left foot, initial encounter for closed fracture; M85.872 Other specified disorders of bone density and structure, left ankle and foot; M25.571 Pain in right ankle and joints of right foot
CPT/HCPCS: 73630

== ENCOUNTER 2022-11-14 11:59 | Emergency (ER) | payer MEDICARE, MEDICAID, SELFPAY ==
[2022-09-30 10:07] VITALS: BMI 20.7
[2022-11-14 12:06] VITALS: BP 134/78; PULSE 92; RESP 18; TEMP 36.7; O2SAT 95; BMI 23.1
--- NOTE | 2022-11-14 12:15 | DI.RAD.S_ITS ---
PROCEDURE: XR FOREARM LT 2V INDICATIONS: Trauma, pain TECHNIQUE: 2 views of the forearm were acquired. COMPARISON: [facility], CR, XR FOREARM RT 2V, 11/14/2022, 12:25. FINDINGS: Bones: No linear lucency at the proximal radial neck without displacement. Normal bone mineralization present. Soft tissues: No suspicious soft tissue calcifications or masses. IMPRESSION: Possible radial neck fracture. Consider follow-up dedicated elbow radiographs Approved by: Jordan Monet M.D. on 11/14/2022 at 12:07
--- NOTE | 2022-11-14 12:15 | DI.RAD.S_ITS ---
PROCEDURE: XR FOREARM RT 2V INDICATIONS: r/o fx TECHNIQUE: 2 views of the forearm were acquired. COMPARISON: None. FINDINGS: Bones: Comminuted proximal radial fracture noted with mild lateral angulation distal fracture fragment. The tubercle of the biceps tendon insertion appears to be a separate fracture fragment. Soft tissues: No suspicious soft tissue calcifications or masses. IMPRESSION: Comminuted proximal radial fracture Approved by: Jordan Monet M.D. on 11/14/2022 at 12:09
--- NOTE | 2022-11-14 13:05 | ED_ITS ---
HPI - Extremity Injury (Upper) <Jeannette Hood PA-C - Last Filed: 11/14/22 16:31> General Chief Complaint: Extremity Injury, Upper Stated Complaint: Fell down Drive way pain in both arms. Time Seen by Provider: 11/14/22 12:17 Source: patient Mode of arrival: Ambulatory History of Present Illness HPI narrative: 47-year-old female presents after a fall in her driveway with bilateral upper extremity pain. She has a history of osteopenia, chronic pain, pulmonary hypertension, history of alcohol abuse currently in remission. She reports poor liver and kidney function, but is able to take lower dose Tylenol. She has pain proximal and lateral to her left elbow, pain and tingling in her left 5th finger, pain in her right proximal forearm and elbow. She has bloody abrasions on right knee, not actively bleeding. Her pain is currently an 8/10. Related Data Home Medications Medication Instructions Recorded Confirmed citalopram 20 mg tablet 20 mg PO DAILY 05/24/19 11/14/20 dicyclomine 10 mg capsule 20 mg PO DAILY 05/24/19 11/14/20 gabapentin 300 mg capsule 900 mg PO BID 05/24/19 11/14/20 trazodone 50 mg tablet 50 - 100 mg PO BEDTIME PRN Sleep 05/24/19 11/14/20 methocarbamol 500 mg tablet 500 mg PO BEDTIME 05/28/20 11/14/20 oxycodone 5 mg tablet 5 mg PO BID PRN 05/28/20 11/14/20 Previous Rx's Medication Instructions Recorded potassium chloride 20 mEq 40 meq PO BIDWM #60 tabs 07/24/19 tablet,extended release(part/cryst) (Klor-Con M) albuterol sulfate 90 mcg/actuation 2 puff inhalation Q4-6H PRN 07/25/19 aerosol inhaler shortness of breath or wheezing #8.5 grams calcitonin (salmon) 200 1 spray intranasal (ALT) DAILY 09/03/20 unit/actuation nasal spray sacral fx 3 months #3.7 mL cyclobenzaprine 10 mg tablet 10 mg PO BID PRN muscle spasm #60 11/14/20 tabs nicotine 14 mg/24 hr daily 1 patch transdermal DAILY #14 ea 11/14/22 transdermal patch oxycodone 5 mg tablet 5 mg PO Q4-6H PRN pain (scale 08/20/23 score 7-10) #14 tabs Allergies Allergy/AdvReac Type Severity Reaction Status Date / Time duloxetine AdvReac Verified 09/26/21 18:16 Review of Systems <Jeannette Hood PA-C - Last Filed: 11/14/22 16:31> Review of Systems ROS Unobtainable: All systems reviewed & are unremarkable except as noted in HPI and below Patient History <Jeannette Hood PA-C - Last Filed: 11/14/22 16:31> Medical History (Updated 11/14/22 @ 16:17 by Jeannette Hood PA-C) Anxiety Chronic high back pain Depression Facet arthropathy, lumbar H/O ETOH abuse Herniated nucleus pulposus, lumbar Osteopenia of lumbar spine Pulmonary hypertension Right foot injury Sacral fracture Scoliosis Surgical History No pertinent past surgical history Family History Mother Afib Grandmother Heart disease Degenerative disk disease Osteoporosis Social History household members: family Smoking Status: Current every day smoker alcohol intake: former Smoking Status: Current every day smoker tobacco type: cigarettes alcohol intake frequency: 0-2 drinks per day Alcohol type: hard liquor Substance Use Type: marijuana Exam <Jeannette Hood PA-C - Last Filed: 11/14/22 16:31> Narrative Exam Narrative: GENERAL: 47 year old patient appears older than stated age. Well-developed enrique ent, in mild distress. NEURO: AOx3. HEAD: Atraumatic. Normocephalic. RESPIRATORY: no distress EXTREMITIES: right elbow with edema, greatest just distal to the elbow. Able to flex and extend her elbow with pain. Right radial pulse intact, strength 5/5 in her hand. Hand is pink and warm. Left arm with bruise over bicep from moving a refrigerator yesterday. Pain with palpation of left elbow and superior to left elbow. Able to flex and extend left upper extremity with pain. Radial pulse intact. Strength 5/5 in hand. Hand is pink and warm. Patient reports her left 4th and 5th fingers feel numb, but on further examination endorses ability to feel sensation over both the dorsal and palmar aspects of 4th and 5th fingers. SKIN: superficial abrasion over right knee Initial Vital Signs Initial Vital Signs: Vital Signs Temperature 98.1 F 11/14/22 12:06 Pulse Rate 92 H 11/14/22 12:06 Respiratory Rate 18 11/14/22 12:06 Blood Pressure 134/78 11/14/22 12:06 Pulse Oximetry 95 11/14/22 12:06 Oxygen Delivery Method Room Air 11/14/22 12:06 <Babs Wells DO - Last Filed: 11/15/22 08:08> Initial Vital Signs Initial Vital Signs: Vital Signs Temperature 98.1 F 11/14/22 12:06 Pulse Rate 92 H 11/14/22 12:06 Respiratory Rate 18 11/14/22 12:06 Blood Pressure 134/78 11/14/22 12:06 Pulse Oximetry 95 11/14/22 12:06 Oxygen Delivery Method Room Air 11/14/22 12:06 Procedures <Jeannette Hood PA-C - Last Filed: 11/14/22 16:31> Orthopedic Splinting/Casting Injury #1: Time of procedure: 15:45 Side: right Upper Extremity Injury Location: elbow Upper Extremity Immobilizer: sugar tong splint Post splinting neuro exam: intact Post splinting vascular exam: intact Placed by: Nursing Injury #2: Side: left Upper Extremity Injury Location: elbow Upper Extremity Immobilizer: sling/shoulder immobilizer Post splinting neuro exam: intact Post splinting vascular exam: intact Placed by: Nursing Course <Jeannette Hood PA-C - Last Filed: 11/14/22 16:31> Orders Ordered: Discontinued Medications Acetaminophen (Acetaminophen 325 Mg Tablet) 650 mg PO NOW ONE Stop: 11/14/22 13:14 Last Admin: 11/14/22 13:24 Dose: 650 mg Documented By: JULY Oxycodone HCl (Oxycodone Ir 5 Mg Tablet) 5 mg PO NOW ONE Stop: 11/14/22 13:14 Last Admin: 11/14/22 13:24 Dose: 5 mg Documented By: BS Oxycodone HCl (Oxycodone Ir 5 Mg Tablet) 5 mg PO NOW ONE Stop: 11/14/22 15:18 Last Admin: 11/14/22 15:34 Dose: 5 mg Documented By: RB Vital Signs Vital signs: Vital Signs - 8 hr 11/14/22 12:06 11/14/22 16:26 Temperature 98.1 F Pulse Rate 92 H 94 H Respiratory Rate 18 18 Blood Pressure 134/78 Pulse Oximetry 95 98 Oxygen Delivery Method Room Air Room Air <Babs Wells DO - Last Filed: 11/15/22 08:08> Orders Ordered: Discontinued Medications Acetaminophen (Acetaminophen 325 Mg Tablet) 650 mg PO NOW ONE Stop: 11/14/22 13:14 Last Admin: 11/14/22 13:24 Dose: 650 mg Documented By: BS Oxycodone HCl (Oxycodone Ir 5 Mg Tablet) 5 mg PO NOW ONE Stop: 11/14/22 13:14 Last Admin: 11/14/22 13:24 Dose: 5 mg Documented By: BS Oxycodone HCl (Oxycodone Ir 5 Mg Tablet) 5 mg PO NOW ONE Stop: 11/14/22 15:18 Last Admin: 11/14/22 15:34 Dose: 5 mg Documented By: RB Vital Signs Vital signs: Vital Signs - 8 hr 11/14/22 12:06 11/14/22 16:26 Temperature 98.1 F Pulse Rate 92 H 94 H Respiratory Rate 18 18 Blood Pressure 134/78 Pulse Oximetry 95 98 Oxygen Delivery Method Room Air Room Air MDM - Extremity Injury (Upper) <Jeannette Hood PA-C - Last Filed: 11/14/22 16:31> Imaging Data Extremity x-ray #1: Radiologist's Impression: Patient: Gely Wilson MR#: [id number] : 1975 Acct:[id number] Age/Sex: 47 / F Accession Number: [id number] ?? Procedure: XR elbow RT min 3V Ordering Provider: Jeannette Hood P.A-C PROCEDURE:? XR ELBOW RT MIN 3V ? INDICATIONS:? radial fracture, want more views of elbow ? TECHNIQUE:? 3 views of the elbow were acquired.? ? COMPARISON:? None. ? FINDINGS:? ? Bones:? Comminuted fracture of the proximal radial diaphysis.? Normal bone mineralization. ? Soft tissues:? No elbow joint effusion.? No suspicious soft tissue calcifications.? ? ? IMPRESSION:? ? Comminuted proximal radial diaphyseal fracture ? ? ? Approved by: Jordan Monet M.D. on 11/14/2022 at 14:36? Extremity x-ray #2: Radiologist's Impression: PROCEDURE:? XR ELBOW LT MIN 3V ? INDICATIONS:? need additional views of left elbow ? TECHNIQUE:? 3 views of the elbow were acquired.? ? COMPARISON:? None. ? FINDINGS:? ? Bones:? Nondisplaced fracture at the left radial neck associated with large joint effusion elevating the anterior humeral fat pad. ? Soft tissues:? No radiopaque foreign body ? ? IMPRESSION:? Nondisplaced radial neck fracture associated with large joint effusion ? ? ? Approved by: Jordan Monet M.D. on 11/14/2022 at 14:35? MDM Narrative Medical decision making narrative: Multiple etiologies for patient's symptoms considered including, but not limited to: Fracture, dislocation, sprain, soft tissue injury. Multiple x-rays of bilateral forearms and elbows obtained showing a left nondisplaced radial neck fracture with a joint effusion, and a right comminuted proximal radial fracture. Patient is neurovascularly intact. Pain managed in the emergency room with Tylenol and 10 mg oxycodone. She takes 5 mg of oxycodone b.i.d. at home for chronic pain. X-rays reviewed with Dr. Wells. Right upper extremity placed in a sugar-tong splint and sling and left upper extremity placed in sling. Neurovascularly intact after splint and sling haley cement. Patient instructed to call [facility] in the morning for follow-up. Discussed appropriate use of pain medications and objects including ice rest and elevation. Patient's symptoms improved over duration of stay with above-stated therapies. Findings and discharge diagnosis discussed with patient/family followed by verbalization of understanding Return precautions discussed with patient/family whom verbalize understanding of diagnosis and plan Discharge Plan Departure Patient Disposition: Home Clinical Impression: Closed fracture of neck of left radius, Closed fracture of proximal end of right radius Instructions: DI for Fracture Activity Restrictions/Additional Instructions: *You have been diagnosed with bilateral radius fractures, which is the bone below your elbow. You should take 650 mg of Tylenol every 6 hours and I have given you a prescription for oxycodone for pain. Do not think this pain medication with alcohol, drive a car, or take other sedating drugs while using it. Please call [facility] in the morning to make a follow-up appointment for evaluation and treatment of your fractures. Keep her splint clean and dry, you can cover with a plastic bag in order to base. *What to do: *Please continue to take your regular medications as directed. [ ] New medication prescriptions sent to your pharmacy: [ ] [ x] New medication written as a paper prescription [ ] No new medications given *Please follow up with your primary care provider in 2-3 days, call for an appointment. Let them know you were seen in the Emergency Department and that we ask that you be seen in follow up. We will electronically transmit a record of today's note if your PCP is in our system *If you do not have a primary care provider please contact the [facility] Resource line at [phone]. They will ask some questions about your medical history and help get you set up with a doctor in the community. *Return to Emergency Department if you should have any new, worsening or concerning symptoms, such as [fever greater than 101 F, shaking chills, worsening pain, persistent vomiting or other bothersome symptoms] Prescriptions: New nicotine 14 mg/24 hr patch 24 hour 1 patch transdermal DAILY Qty: 14 0RF oxycodone 5 mg tablet 5 mg PO Q4-6H PRN (Reason: pain (scale score 7-10)) Qty: 14 0RF No Action potassium chloride [Klor-Con M20] 20 mEq Tablet,Er Particles/Crystals 40 meq PO BIDWM Qty: 60 1RF albuterol sulfate 90 mcg/actuation HFA aerosol inhaler 2 puff INHALATION Q4-6H PRN (Reason: shortness of breath or wheezing) Qty: 8.5 0RF Rx Instructions: 1-2 puffs with a spacer every 2-4 hours as needed for wheezing, cough and shortness of breath trazodone 50 mg tablet 50 - 100 mg PO BEDTIME PRN (Reason: Sleep) citalopram 20 mg tablet 20 mg PO DAILY Patient Comments: take 1 tablet by mouth once daily gabapentin 300 mg capsule 900 mg PO BID dicyclomine 10 mg capsule 20 mg PO DAILY Patient Comments: take 2 capsules by mouth once daily oxycodone 5 mg tablet 5 mg PO BID PRN methocarbamol 500 mg tablet 500 mg PO BEDTIME Hold Instructions: Home Medication placed on hold at Doctor's office cyclobenzaprine 10 mg tablet 10 mg PO BID PRN (Reason: muscle spasm) Qty: 60 1RF calcitonin (salmon) 200 unit/actuation spray,non-aerosol 1 spray intranasal (ALT) DAILY 90 Days Qty: 3.7 2RF Rx Instructions: sacral fx Referrals: [facility] [Provider Group] Santiago Aguillon MD [Primary Care Provider] - Stand Alone Forms: Patient Portal/API <Babs Wells DO - Last Filed: 11/15/22 08:08> Cosign ED Attending Coschantalature Attestation: I was immediately available in the department for consultation. Documentation has been reviewed.
--- NOTE | 2022-11-14 13:22 | DI.RAD.S_ITS ---
PROCEDURE: XR ELBOW LT MIN 3V INDICATIONS: need additional views of left elbow TECHNIQUE: 3 views of the elbow were acquired. COMPARISON: None. FINDINGS: Bones: Nondisplaced fracture at the left radial neck associated with large joint effusion elevating the anterior humeral fat pad. Soft tissues: No radiopaque foreign body IMPRESSION: Nondisplaced radial neck fracture associated with large joint effusion Approved by: Jordan Monet M.D. on 11/14/2022 at 14:35
[2022-11-14] MEDS: ACETAMINOPHEN 325 MG TABLET 650 MG PO (13:24)
[2022-11-14] MEDS: OXYCODONE IR 5 MG TABLET PO ×2 (13:24→15:34)
--- NOTE | 2022-11-14 13:40 | DI.RAD.S_ITS ---
PROCEDURE: XR ELBOW RT MIN 3V INDICATIONS: radial fracture, want more views of elbow TECHNIQUE: 3 views of the elbow were acquired. COMPARISON: None. FINDINGS: Bones: Comminuted fracture of the proximal radial diaphysis. Normal bone mineralization. Soft tissues: No elbow joint effusion. No suspicious soft tissue calcifications. IMPRESSION: Comminuted proximal radial diaphyseal fracture Approved by: Jordan Monet M.D. on 11/14/2022 at 14:36
[2022-11-14 16:26] VITALS: PULSE 94; RESP 18; O2SAT 98
== END 2022-11-14 16:27 | disposition home or self-care (01) ==
PROVIDERS: Emergency Provider Physician Assistant; PCP Family Medicine
DX: S52.132A Displaced fracture of neck of left radius, initial encounter for closed fracture (principal); S52.101A Unspecified fracture of upper end of right radius, initial encounter for closed fracture; W18.30XA Fall on same level, unspecified, initial encounter
CPT/HCPCS: 29105; 73080; 73090; 99283; 99284

== ENCOUNTER 2023-05-07 07:03 | Emergency (ER) | payer MEDICARE, MEDICAID, SELFPAY ==
[2022-09-30 10:07] VITALS: BMI 20.7
[2023-05-07] VITALS (122 sets, daily range): BP systolic 83–101; BP diastolic 48–66; PULSE 81–124; RESP 12–43; TEMP 32.8–36.8; O2SAT 81–100
--- NOTE | 2023-05-07 | DI.RAD.S_ITS ---
PROCEDURE: XR CHEST 1V INDICATIONS: INTUBATION TUBE PLACEMENT TECHNIQUE: One view of the chest was acquired. COMPARISON: [facility], CR, XR CHEST 1V, 05/07/2023, 7:11. FINDINGS: Surgical changes and devices: Endotracheal tube 2.5 cm above the danny. Nasogastric tube stomach. Right IJ central venous line in upper SVC. Lungs and pleura: Patchy bilateral pulmonary infiltrates are similar to the prior exam and accentuated by low lung volumes. No pneumothorax Mediastinum: Mediastinal contours appear normal. Heart size is normal. Bones and chest wall: No suspicious bony lesions. Overlying soft tissues appear unremarkable. IMPRESSION: Lines and tubes good position. Patchy bilateral pulmonary infiltrates Approved by: Jordan Monet M.D. on 05/07/2023 at 8:35
[2023-05-07] MEDS: SODIUM CHLORIDE 0.9% 1,000 ML 1000 ML IV ×2 (07:00→07:30)
--- NOTE | 2023-05-07 07:09 | DI.RAD.S_ITS ---
PROCEDURE: XR CHEST 1V INDICATIONS: GEN WEAKNESS/ETOH TECHNIQUE: One view of the chest was acquired. COMPARISON: [facility], CR, XR CHEST 1V, 04/26/2021, 16:14. [facility], CR, XR CHEST 2V, 07/25/2019, 13:44. FINDINGS: Surgical changes and devices: None. Lungs and pleura: Streaky bibasilar opacities. No pleural effusions or pneumothorax. Mediastinum: Mediastinal contours appear normal. Heart size is normal. Bones and chest wall: No suspicious bony lesions. Overlying soft tissues appear unremarkable. IMPRESSION: Streaky bibasilar opacities, concerning for pneumonia or aspiration. Recommend follow-up radiograph to resolution. Dictated by: Franco Hooks M.D. on 05/07/2023 at 7:48 Approved by: Franco Hooks M.D. on 05/07/2023 at 7:48
--- NOTE | 2023-05-07 07:11 | DI.CT.S_ITS ---
PROCEDURE: CT HEAD/BRAIN WO CON INDICATIONS: GLF/ETOH TECHNIQUE: Noncontrast 4.5 mm thick angled axial sections acquired from the foramen magnum to the vertex, with coronal and sagittal reformats. For radiation dose reduction, the following was used: automated exposure control, adjustment of mA and/or kV according to patient size. COMPARISON: [facility], CT, CT HEAD/BRAIN WO CON, 08/01/2021, 11:31. FINDINGS: Image quality: Diagnostic. CSF spaces: Basal cisterns are patent. No extra-axial fluid collections. Ventricles are normal in size and shape. Brain: No midline shift. Mild global volume loss, pronounced for age. No intracranial masses or hemorrhage. Coughlin-white matter interface is normal. Skull and face: Calvarium and visualized facial bones are intact, without suspicious lesions. Sinuses: Visualized sinuses and mastoids are clear. IMPRESSION: No acute intracranial pathology. Dictated by: Franco Hooks M.D. on 05/07/2023 at 7:49 Approved by: Franco Hooks M.D. on 05/07/2023 at 7:50
--- NOTE | 2023-05-07 07:15 | ED.ALCOHOL ---
HPI - Alcohol General Chief Complaint: Toxicology Problem Stated Complaint: ETOH, weakness Time Seen by Provider: 05/07/23 07:06 History of Present Illness HPI narrative: 47-year-old female with history of alcohol use disorder, cirrhosis, previous hx of kidney problems presents by EMS from home for generalized weakness and alcohol intoxication. EMS called by significant other at the home because the patient was too weak and fell out of bed, biting her tongue. Patient reported to be drinking heavily for the last 2 days. On arrival patient was obviously intoxicated, hypotensive, with low oxygen saturations. Appeared cold to touch. Related Data Home Medications Medication Instructions Recorded Confirmed citalopram 20 mg tablet 20 mg PO DAILY 05/24/19 11/14/20 dicyclomine 10 mg capsule 20 mg PO DAILY 05/24/19 11/14/20 gabapentin 300 mg capsule 900 mg PO BID 05/24/19 11/14/20 trazodone 50 mg tablet 50 - 100 mg PO BEDTIME PRN Sleep 05/24/19 11/14/20 methocarbamol 500 mg tablet 500 mg PO BEDTIME 05/28/20 11/14/20 oxycodone 5 mg tablet 5 mg PO BID PRN 05/28/20 11/14/20 Previous Rx's Medication Instructions Recorded potassium chloride 20 mEq 40 meq (2 x 20 mEq) PO BIDWM #60 07/24/19 tablet,extended tabs release(part/cryst) (Klor-Con M) albuterol sulfate 90 mcg/actuation 2 puff inhalation Q4-6H PRN 07/25/19 aerosol inhaler shortness of breath or wheezing #8.5 grams calcitonin (salmon) 200 1 spray intranasal (ALT) DAILY 09/03/20 unit/actuation nasal spray sacral fx 3 months #3.7 mL cyclobenzaprine 10 mg tablet 10 mg PO BID PRN muscle spasm #60 11/14/20 tabs nicotine 14 mg/24 hr daily 1 patch transdermal DAILY #14 ea 11/14/22 transdermal patch oxycodone 5 mg tablet 5 mg PO Q4-6H PRN pain (scale 11/14/22 score 7-10) #14 tabs Allergies Allergy/AdvReac Type Severity Reaction Status Date / Time duloxetine AdvReac Verified 09/26/21 18:16 Review of Systems Review of Systems Narrative: Limited due to alcohol intoxication Patient History Medical History Right foot injury Pulmonary hypertension Herniated nucleus pulposus, lumbar Scoliosis Facet arthropathy, lumbar Sacral fracture Osteopenia of lumbar spine Anxiety Depression Chronic high back pain H/O ETOH abuse Surgical History No pertinent past surgical history Family History Mother Afib Grandmother Heart disease Degenerative disk disease Osteoporosis Social History household members: family Smoking Status: Current every day smoker alcohol intake: former Smoking Status: Current every day smoker tobacco type: cigarettes alcohol intake frequency: 0-2 drinks per day Alcohol type: hard liquor Substance Use Type: marijuana Exam Initial Vital Signs Initial Vital Signs: Vital Signs Temperature 98.2 F 05/07/23 07:08 Pulse Rate 82 05/07/23 07:08 Respiratory Rate 18 05/07/23 07:08 Blood Pressure 84/52 L 05/07/23 07:08 Pulse Oximetry 96 05/07/23 07:08 Oxygen Delivery Method Room Air 05/07/23 07:08 Const: Awake, appears intoxicated, all in stated age, chronically unwell, ill-appearing Eyes: PERRL, 3 mm, reactive to light bilaterally, sluggish ENT: Dried blood in mouth, no active bleeding, dry mucous membranes Cardiac: regular rate, regular rhythm RESP: unlabored, clear bilaterally GI: Soft, [id number] distention, no tenderness to palpation MSK: Atraumatic, full range of motion, pulses equal Skin: Cool, dry, mottled Neuro: AO x1, CN II-XII grossly intact, moves all extremities Procedures Central Line Placement Right IJ: Time Out Performed: Yes Patient Placed on Monitor/Pulse Ox: Yes MD Prep: mask, gown and gloves Central Line Prep: Chlorhexidine scrub and sterile drapes applied Local Anesthetic: lidocaine 1% Amount of anesthesia used (mL): 2 Ultrasound Used for Placement: Yes Central Line Lumen Inserted: triple Post Procedure: sutured in place, good blood return, all ports aspirated, flushed, capped, sterile dressing applied and line stabilization device Post Procedure X-Ray: tip of catheter in good position and no pneumothorax seen Patient Tolerated Procedure: Well and No complications Complications: none Intubation sedative: Etomidate Mg Given: 20 paralytic: Rocuronium Mg Given: 80 Laryngoscope: Yvan ET Tube Size: 7.5 ET Tube Uncuffed: No Tube Secured Depth (cm): 23 Tube Placement Confirmation: Visualized tube passing through cords, Equal breath sounds bilaterally, No breath sounds over epigastrium, Confirmation by capnometry and Chest Xray Patient Tolerated Procedure: Well Intubation Complications: other (aspiration) Course Orders Ordered: ED Orders 05/07/23 07:09 Chest [XR chest 1V] Stat EKG-12 Lead Stat 05/07/23 07:11 CT head/brain wo con Stat 05/07/23 08:00 Respiratory Panel (Film Array) Stat 05/07/23 08:04 ABG [Arterial Blood Gas] Stat 05/07/23 08:20 Acetaminophen Stat Blood Culture Stat CBC Auto Diff [Complete Blood Count AUTO DIFF] Stat CMP [Comprehensive Metabolic Panel] Stat Ethanol (ETOH) Stat Ictotest Urine Stat Lactate (Lactic Acid) Stat Lipase Stat PT [Prothrombin Time INR] Stat Test Urine Stat Salicylate Stat UA Complete [Urinalysis and Microscopic] Stat Urine Culture Stat Urine Drug Screen, Rapid Stat 05/07/23 09:11 Ammonia (NH3) Stat Fresh Frozen Plasma Stat Packed Cells Stat Type and Screen Stat 05/07/23 09:27 ABG [Arterial Blood Gas] Stat 05/07/23 10:55 COVID19 -Nasal RAPID Stat Thiamine HCl 200 mg/ Sodium (Chloride) 102 mls @ 408 mls/hr IV DAILY [facility] Last Infusion: 05/07/23 10:45 Dose: Infused Documented By: Admin: 05/07/23 10:08 Dose: 408 mls/hr Documented By: AURORA NOREPINEPHRINE BITARTRATE/D5W (Levophed) 4 mg in 250 mls @ 28.917 mls/hr IV TITRATE ANTHONY; Protocol Last Titration: 05/07/23 11:00 Dose: 0.26 mcg/kg/min, 75 mls/hr Documented By: Titration: 05/07/23 09:57 Dose: 0.19 mcg/kg/min, 56.2 mls/hr Documented By: Admin: 05/07/23 09:14 Dose: 0.1 mcg/kg/min, 30 mls/hr Documented By: AURORA Propofol (Propofol) 1,000 mg in 100 mls @ 2.313 mls/hr IV TITRATE ANTHONY; Protocol Last Admin: 05/07/23 09:17 Dose: 5 mcg/kg/min, 2.313 mls/hr Documented By: AURORA Octreotide Acetate 500 mcg/ (Sodium Chloride) 101 mls @ 10.1 mls/hr IV CONT ANTHONY; Protocol Last Admin: 05/07/23 09:29 Dose: 50 mcg/hr, 10.1 mls/hr Documented By: AURORA Sodium Bicarbonate 150 meq/ (Dextrose) 1,150 mls @ 150 mls/hr IV CONT ANTHONY Last Admin: 05/07/23 09:30 Dose: 150 mls/hr Documented By: UARORA Discontinued Medications Lactulose 200 gm/ Sterile (Water 700 ml) 0 gm MI NOW ONE Stop: 05/07/23 09:45 Etomidate (Etomidate 2 Mg/Ml 10 Ml Vial) 20 mg IV NOW ONE Stop: 05/07/23 08:48 Last Admin: 05/07/23 08:43 Dose: 20 mg Documented By: AURORA Folic Acid (Folic Acid 1 Mg Tablet) 1 mg PO NOW ONE Stop: 05/07/23 07:09 Last Admin: 05/07/23 09:48 Dose: Not Given Documented By: AURORA Sodium Chloride (Normal Saline 0.9%) 1,000 mls @ 1,000 mls/hr IV BOLUS ONE Stop: 05/07/23 08:07 Last Infusion: 05/07/23 09:40 Dose: Infused Documented By: Admin: 05/07/23 07:00 Dose: 1,000 mls/hr Documented By: AURORA Vancomycin HCl/Dextrose (Vancomycin) 1,500 mg in 300 mls @ 200 mls/hr IV NOW ONE Stop: 05/07/23 10:18 Last Infusion: 05/07/23 11:30 Dose: Infused Documented By: Admin: 05/07/23 09:48 Dose: 200 mls/hr Documented By: AURORA Cefepime HCl 2 gm/ Sodium (Chloride) 100 mls @ 200 mls/hr IV NOW ONE Stop: 05/07/23 08:51 Last Admin: 05/07/23 12:11 Dose: Not Given Documented By: AURORA Ceftriaxone Sodium 2,000 mg/ (Sodium Chloride) 100 mls @ 200 mls/hr IV NOW ONE Stop: 05/07/23 09:06 Last Infusion: 05/07/23 10:05 Dose: Infused Documented By: Admin: 05/07/23 09:25 Dose: 200 mls/hr Documented By: AURORA Sodium Chloride (Normal Saline 0.9%) 1,000 mls @ 1,000 mls/hr IV BOLUS ONE Stop: 05/07/23 10:43 Last Infusion: 05/07/23 09:47 Dose: Infused Documented By: Admin: 05/07/23 07:30 Dose: 1,000 mls/hr Documented By: AURORA Pantoprazole Sodium (Pantoprazole 40 Mg Vial) 80 mg IV NOW ONE Stop: 05/07/23 09:07 Last Admin: 05/07/23 09:26 Dose: 80 mg Documented By: AURORA Rocuronium [place] (Rocuronium 100 Mg/10 Ml Vial) 80 mg IV NOW ONE Stop: 05/07/23 08:49 Last Admin: 05/07/23 08:44 Dose: 80 mg Documented By: AURORA Vital Signs Vital signs: Vital Signs - 8 hr 05/07/23 07:08 05/07/23 07:29 05/07/23 07:30 Temperature 98.2 F Pulse Rate 82 88 Respiratory Rate 18 22 Blood Pressure 84/52 L 88/53 L Pulse Oximetry 96 81 L Oxygen Delivery Method Room Air Room Air Oxygen Flow Rate 05/07/23 07:31 05/07/23 07:31 05/07/23 07:35 Temperature Pulse Rate 87 Respiratory Rate Blood Pressure 100/58 L Pulse Oximetry 85 L 88 L Oxygen Delivery Method Nasal Cannula Nasal Cannula Oxygen Flow Rate 2 4 05/07/23 08:00 05/07/23 08:15 05/07/23 08:30 Temperature Pulse Rate 100 H 99 H 84 Respiratory Rate 29 H 24 29 H Blood Pressure 89/56 L 83/48 L 88/56 L Pulse Oximetry 87 L 86 L 82 L Oxygen Delivery Method Nasal Cannula Nasal Cannula Nasal Cannula Oxygen Flow Rate 4 4 4 05/07/23 08:32 05/07/23 08:34 05/07/23 08:36 Temperature 91.0 F L 91.4 F L 91.6 F L Pulse Rate 84 84 83 Respiratory Rate 27 H 25 H 27 H Blood Pressure Pulse Oximetry 82 L 82 L 84 L Oxygen Delivery Method Nasal Cannula Nasal Cannula Nasal Cannula Oxygen Flow Rate 4 4 4 05/07/23 08:38 05/07/23 08:40 05/07/23 08:42 Temperature 91.6 F L 91.8 F L 91.8 F L Pulse Rate 83 83 83 Respiratory Rate 29 H 31 H 29 H Blood Pressure 88/55 L Pulse Oximetry 89 L 90 L 91 Oxygen Delivery Method Nasal Cannula Ambu Bag Ambu Bag Oxygen Flow Rate 4 15 15 05/07/23 08:44 05/07/23 08:46 05/07/23 08:48 Temperature 91.9 F L 91.9 F L 91.9 F L Pulse Rate 81 81 124 H Respiratory Rate 43 H 12 16 Blood Pressure 86/56 L Pulse Oximetry 99 100 100 Oxygen Delivery Method Ambu Bag Mechanical Ventilation Mechanical Ventilation Oxygen Flow Rate 15 05/07/23 08:48 05/07/23 08:50 05/07/23 08:52 Temperature 91.9 F L 91.9 F L Pulse Rate 120 H 116 H Respiratory Rate 16 18 Blood Pressure 89/59 L Pulse Oximetry 96 90 L Oxygen Delivery Method Mechanical Ventilation Mechanical Ventilation Oxygen Flow Rate 05/07/23 08:54 05/07/23 08:56 05/07/23 08:58 Temperature 91.9 F L 91.9 F L 91.8 F L Pulse Rate 114 H 114 H 112 H Respiratory Rate 18 20 16 Blood Pressure Pulse Oximetry 84 L 85 L Oxygen Delivery Method Mechanical Ventilation Mechanical Ventilation Oxygen Flow Rate 05/07/23 09:00 05/07/23 09:02 05/07/23 09:02 Temperature 91.8 F L 91.8 F L Pulse Rate 112 H 110 H 110 H Respiratory Rate 16 24 18 Blood Pressure 87/66 L Pulse Oximetry Oxygen Delivery Method Oxygen Flow Rate 05/07/23 09:04 05/07/23 09:06 05/07/23 09:08 Temperature 91.6 F L 91.6 F L 91.6 F L Pulse Rate 110 H 109 H 109 H Respiratory Rate 20 18 18 Blood Pressure Pulse Oximetry 93 89 L 92 Oxygen Delivery Method Mechanical Ventilation Mechanical Ventilation Mechanical Ventilation Oxygen Flow Rate 05/07/23 09:10 05/07/23 09:12 05/07/23 09:14 Temperature 91.6 F L 91.6 F L 91.6 F L Pulse Rate 109 H 107 H 107 H Respiratory Rate 24 24 24 Blood Pressure Pulse Oximetry 95 95 Oxygen Delivery Method Mechanical Ventilation Mechanical Ventilation Oxygen Flow Rate 05/07/23 09:16 05/07/23 09:18 05/07/23 09:19 Temperature 91.6 F L 91.6 F L 91.6 F L Pulse Rate 107 H 105 H 105 H Respiratory Rate 24 24 24 Blood Pressure 91/56 L Pulse Oximetry 100 99 Oxygen Delivery Method Mechanical Ventilation Mechanical Ventilation Oxygen Flow Rate 05/07/23 09:19 05/07/23 09:20 05/07/23 09:22 Temperature 91.6 F L 91.6 F L Pulse Rate 105 H 104 H Respiratory Rate 24 24 Blood Pressure 97/65 Pulse Oximetry 99 Oxygen Delivery Method Mechanical Ventilation Oxygen Flow Rate 05/07/23 09:24 05/07/23 09:26 05/07/23 09:28 Temperature 91.6 F L 91.6 F L 91.6 F L Pulse Rate 104 H 102 H 101 H Respiratory Rate 24 24 24 Blood Pressure Pulse Oximetry 89 L 85 L Oxygen Delivery Method Mechanical Ventilation Mechanical Ventilation Oxygen Flow Rate 05/07/23 09:30 05/07/23 09:32 05/07/23 09:32 Temperature 91.6 F L 91.6 F L Pulse Rate 101 H 101 H Respiratory Rate 24 24 Blood Pressure 85/56 L Pulse Oximetry 84 L Oxygen Delivery Method Mechanical Ventilation Oxygen Flow Rate 05/07/23 09:34 05/07/23 09:36 05/07/23 09:38 Temperature 91.6 F L 91.6 F L 91.6 F L Pulse Rate 100 H 100 H 100 H Respiratory Rate 28 H 29 H 28 H Blood Pressure Pulse Oximetry 87 L 87 L 87 L Oxygen Delivery Method Mechanical Ventilation Mechanical Ventilation Mechanical Ventilation Oxygen Flow Rate 05/07/23 09:40 05/07/23 09:42 05/07/23 09:44 Temperature 91.6 F L 91.6 F L 91.6 F L Pulse Rate 100 H 100 H 100 H Respiratory Rate 28 H 28 H 28 H Blood Pressure Pulse Oximetry 87 L 87 L 87 L Oxygen Delivery Method Mechanical Ventilation Mechanical Ventilation Mechanical Ventilation Oxygen Flow Rate 05/07/23 09:45 05/07/23 09:45 05/07/23 09:46 Temperature 91.6 F L 91.6 F L Pulse Rate 100 H 100 H Respiratory Rate 28 H 28 H Blood Pressure 86/54 L Pulse Oximetry 87 L 87 L Oxygen Delivery Method Mechanical Ventilation Mechanical Ventilation Oxygen Flow Rate 05/07/23 09:48 05/07/23 09:50 05/07/23 09:52 Temperature 91.6 F L 91.8 F L 91.8 F L Pulse Rate 100 H 100 H 101 H Respiratory Rate 28 H 28 H 28 H Blood Pressure 89/54 L Pulse Oximetry 86 L 86 L Oxygen Delivery Method Mechanical Ventilation Mechanical Ventilation Oxygen Flow Rate 05/07/23 09:52 05/07/23 09:54 05/07/23 09:56 Temperature 91.8 F L 91.8 F L 91.8 F L Pulse Rate 101 H 101 H 101 H Respiratory Rate 28 H 28 H 28 H Blood Pressure Pulse Oximetry 86 L 86 L 86 L Oxygen Delivery Method Mechanical Ventilation Mechanical Ventilation Mechanical Ventilation Oxygen Flow Rate 05/07/23 09:58 05/07/23 10:00 05/07/23 10:00 Temperature 91.8 F L 91.8 F L Pulse Rate 101 H 101 H Respiratory Rate 28 H 28 H Blood Pressure 84/53 L Pulse Oximetry 86 L 86 L Oxygen Delivery Method Mechanical Ventilation Mechanical Ventilation Oxygen Flow Rate 05/07/23 10:02 05/07/23 10:04 05/07/23 10:05 Temperature 91.9 F L 91.9 F L 91.9 F L Pulse Rate 101 H 101 H 102 H Respiratory Rate 28 H 28 H 28 H Blood Pressure Pulse Oximetry 86 L 86 L 86 L Oxygen Delivery Method Mechanical Ventilation Mechanical Ventilation Mechanical Ventilation Oxygen Flow Rate 05/07/23 10:05 05/07/23 10:06 05/07/23 10:07 Temperature 91.9 F L 91.9 F L Pulse Rate 103 H 100 H Respiratory Rate 28 H 28 H Blood Pressure 87/55 L 84/54 L Pulse Oximetry 87 L Oxygen Delivery Method Transtracheal Catheter Oxygen Flow Rate 05/07/23 10:08 05/07/23 10:10 05/07/23 10:12 Temperature 91.9 F L 92.1 F L 92.1 F L Pulse Rate 103 H 103 H 104 H Respiratory Rate 28 H 28 H 28 H Blood Pressure Pulse Oximetry 87 L 88 L 87 L Oxygen Delivery Method Mechanical Ventilation Mechanical Ventilation Mechanical Ventilation Oxygen Flow Rate 05/07/23 10:14 05/07/23 10:15 05/07/23 10:15 Temperature 92.1 F L 92.3 F L Pulse Rate 104 H 104 H Respiratory Rate 28 H 28 H Blood Pressure 94/59 L Pulse Oximetry 87 L 87 L Oxygen Delivery Method Mechanical Ventilation Mechanical Ventilation Oxygen Flow Rate 05/07/23 10:16 05/07/23 10:18 05/07/23 10:20 Temperature 92.3 F L 92.3 F L 92.5 F L Pulse Rate 106 H 106 H 106 H Respiratory Rate 28 H 28 H 28 H Blood Pressure Pulse Oximetry 87 L 87 L 87 L Oxygen Delivery Method Mechanical Ventilation Mechanical Ventilation Mechanical Ventilation Oxygen Flow Rate 05/07/23 10:22 05/07/23 10:24 05/07/23 10:24 Temperature 92.5 F L 92.5 F L 92.5 F L Pulse Rate 108 H 106 H 108 H Respiratory Rate 28 H 28 H 28 H Blood Pressure 94/56 L Pulse Oximetry 87 L 87 L Oxygen Delivery Method Mechanical Ventilation Mechanical Ventilation Oxygen Flow Rate 05/07/23 10:26 05/07/23 10:28 05/07/23 10:30 Temperature 92.7 F L 92.7 F L 92.7 F L Pulse Rate 108 H 108 H 109 H Respiratory Rate 28 H 28 H 28 H Blood Pressure Pulse Oximetry 87 L 86 L 86 L Oxygen Delivery Method Oxygen Flow Rate 05/07/23 10:30 05/07/23 10:32 05/07/23 10:34 Temperature 92.8 F L 92.8 F L Pulse Rate 109 H 109 H Respiratory Rate 28 H 28 H Blood Pressure 100/62 Pulse Oximetry 86 L 86 L Oxygen Delivery Method Oxygen Flow Rate 05/07/23 10:36 05/07/23 10:38 05/07/23 10:38 Temperature 93.0 F L 92.8 F L 93.0 F L Pulse Rate 109 H 105 H 105 H Respiratory Rate 28 H 28 H 28 H Blood Pressure 100/62 Pulse Oximetry 86 L 86 L Oxygen Delivery Method Oxygen Flow Rate 05/07/23 10:40 05/07/23 10:42 05/07/23 10:44 Temperature 93.0 F L 93.2 F L 93.2 F L Pulse Rate 105 H 105 H 105 H Respiratory Rate 28 H 28 H 28 H Blood Pressure Pulse Oximetry 85 L 85 L 84 L Oxygen Delivery Method Oxygen Flow Rate 05/07/23 10:45 05/07/23 10:45 05/07/23 10:46 Temperature 93.4 F L 93.4 F L Pulse Rate 106 H 100 H Respiratory Rate 28 H 28 H Blood Pressure 98/57 L Pulse Oximetry 84 L 84 L Oxygen Delivery Method Oxygen Flow Rate 05/07/23 10:48 05/07/23 10:50 05/07/23 10:52 Temperature 93.4 F L 93.6 F L 93.6 F L Pulse Rate 99 H 108 H 103 H Respiratory Rate 28 H 29 H 28 H Blood Pressure Pulse Oximetry 83 L 83 L 83 L Oxygen Delivery Method Mechanical Ventilation Mechanical Ventilation Oxygen Flow Rate 05/07/23 10:54 05/07/23 10:56 05/07/23 10:58 Temperature 93.6 F L 93.7 F L 93.7 F L Pulse Rate 101 H 110 H 104 H Respiratory Rate 28 H 28 H 28 H Blood Pressure Pulse Oximetry 82 L 82 L 82 L Oxygen Delivery Method Mechanical Ventilation Mechanical Ventilation Mechanical Ventilation Oxygen Flow Rate 05/07/23 11:00 05/07/23 11:00 05/07/23 11:02 Temperature 93.9 F L 93.9 F L Pulse Rate 101 H 109 H Respiratory Rate 29 H 28 H Blood Pressure 95/58 L Pulse Oximetry 82 L 83 L Oxygen Delivery Method Mechanical Ventilation Mechanical Ventilation Oxygen Flow Rate 05/07/23 11:04 05/07/23 11:06 05/07/23 11:08 Temperature 94.1 F L 94.1 F L 94.1 F L Pulse Rate 109 H 100 H 107 H Respiratory Rate 36 H 28 H 28 H Blood Pressure Pulse Oximetry 85 L 85 L 85 L Oxygen Delivery Method Mechanical Ventilation Mechanical Ventilation Mechanical Ventilation Oxygen Flow Rate 05/07/23 11:10 05/07/23 11:12 05/07/23 11:14 Temperature 94.3 F L 94.3 F L 94.5 F L Pulse Rate 108 H 103 H 109 H Respiratory Rate 28 H 28 H 28 H Blood Pressure Pulse Oximetry 86 L 86 L 85 L Oxygen Delivery Method Mechanical Ventilation Mechanical Ventilation Mechanical Ventilation Oxygen Flow Rate 05/07/23 11:15 05/07/23 11:15 05/07/23 11:15 Temperature 94.5 F L 95.2 F L Pulse Rate 109 H 101 H Respiratory Rate 28 H 29 H Blood Pressure 101/62 98/57 L Pulse Oximetry 85 L Oxygen Delivery Method Mechanical Ventilation Oxygen Flow Rate 05/07/23 11:16 05/07/23 11:18 05/07/23 11:20 Temperature 94.5 F L 94.5 F L 94.6 F L Pulse Rate 109 H 103 H 109 H Respiratory Rate 28 H 28 H 28 H Blood Pressure Pulse Oximetry 85 L 85 L 85 L Oxygen Delivery Method Mechanical Ventilation Mechanical Ventilation Mechanical Ventilation Oxygen Flow Rate 05/07/23 11:22 05/07/23 11:24 05/07/23 11:26 Temperature 94.6 F L 94.8 F L 94.8 F L Pulse Rate 109 H 109 H 109 H Respiratory Rate 28 H 28 H 28 H Blood Pressure Pulse Oximetry 85 L 85 L 85 L Oxygen Delivery Method Mechanical Ventilation Mechanical Ventilation Mechanical Ventilation Oxygen Flow Rate 05/07/23 11:28 05/07/23 11:30 05/07/23 11:30 Temperature 94.8 F L 95.0 F L Pulse Rate 109 H 109 H Respiratory Rate 28 H 28 H Blood Pressure 98/62 Pulse Oximetry 84 L 84 L Oxygen Delivery Method Mechanical Ventilation Mechanical Ventilation Oxygen Flow Rate 05/07/23 11:32 05/07/23 11:34 05/07/23 11:36 Temperature 95.0 F L 95.2 F L 95.2 F L Pulse Rate 109 H 109 H 109 H Respiratory Rate 28 H 28 H 28 H Blood Pressure Pulse Oximetry 84 L 84 L 84 L Oxygen Delivery Method Mechanical Ventilation Mechanical Ventilation Mechanical Ventilation Oxygen Flow Rate 05/07/23 11:38 05/07/23 11:40 05/07/23 11:42 Temperature 95.2 F L 95.4 F L 95.4 F L Pulse Rate 110 H 110 H 111 H Respiratory Rate 28 H 28 H 28 H Blood Pressure Pulse Oximetry 83 L 83 L 82 L Oxygen Delivery Method Mechanical Ventilation Mechanical Ventilation Mechanical Ventilation Oxygen Flow Rate 05/07/23 11:44 05/07/23 11:45 05/07/23 11:45 Temperature 95.5 F L 95.5 F L Pulse Rate 111 H 111 H Respiratory Rate 28 H 28 H Blood Pressure 95/61 Pulse Oximetry 85 L 86 L Oxygen Delivery Method Mechanical Ventilation Mechanical Ventilation Oxygen Flow Rate 05/07/23 11:46 05/07/23 11:48 05/07/23 11:50 Temperature 95.5 F L 95.5 F L 95.7 F L Pulse Rate 112 H 113 H Respiratory Rate 28 H 28 H Blood Pressure Pulse Oximetry 86 L Oxygen Delivery Method Mechanical Ventilation Oxygen Flow Rate 05/07/23 11:52 05/07/23 11:54 05/07/23 11:56 Temperature 95.7 F L 95.9 F L 95.9 F L Pulse Rate Respiratory Rate Blood Pressure Pulse Oximetry Oxygen Delivery Method Oxygen Flow Rate 05/07/23 11:58 Temperature 95.9 F L Pulse Rate Respiratory Rate Blood Pressure Pulse Oximetry Oxygen Delivery Method Oxygen Flow Rate MDM - Alcohol Differential Diagnosis Differential diagnosis: Likely alcohol withdrawal delirium, hypomagnesemia and alcohol intoxication Lab Data 05/07/23 08:20 05/07/23 08:20 Labs: Lab Results 05/07/23 05/07/23 05/07/23 Range/Units 08:00 08:04 08:20 WBC 19.5 H (4.5-11.0) X10^3/uL RBC 2.83 L (4.0-5.2) X10^6/uL Hgb 11.0 L (12.0-16.0) g/dL Hct 38.9 (36-46) % MCV 137.7 H (80-100) fL MCH 38.9 H (26-34) PG MCHC 28.2 L (30-36) % RDW 21.3 H (11.6-14.8) % Plt Count 72 L (150-400) X10^3/uL Neut % (Auto) Recruiting Assistant Lymph % (Auto) Recruiting Assistant Sullivan % (Auto) Recruiting Assistant Eos % (Auto) Recruiting Assistant Baso % (Auto) Recruiting Assistant Neut # (Auto) Recruiting Assistant Lymph # (Auto) Recruiting Assistant Sullivan # (Auto) Recruiting Assistant Eos # (Auto) Recruiting Assistant Baso # (Auto) Recruiting Assistant Total Counted 100 Seg Neutrophils % 75.0 H (38-70) % Band Neutrophils % 16.0 H (3-7) % Lymphocytes % (Manual) 7.0 L (25-45) % Monocytes % (Manual) 1.0 L (2-11) % Eosinophils % (Manual) 1.0 L (2-4) % Neutrophils # (Manual) 65324 H (8322-1443) /uL Nucleated RBCs 1 H ( - 0) #/Diff RBC Morphology See below Anisocytosis 2+ H Macrocytosis 2+ H Tear Drop Cells 1+ H PT 18.9 H (9.4-12.5) SECONDS INR 1.6 H (0.9-1.3) ABG Sample Site Right brachial ABG pH 6.79 L* (7.35-7.45) ABG pCO2 20.3 L* (35-45) mmHg ABG pO2 79 L (80-100) mmHg ABG HCO3 3 L (23-27) mmol/L ABG Total CO2 < 5 L (23-27) mmol/L ABG O2 Saturation 78 L* (95-100) % ABG Base Excess < -30.0 L (-2-3) mmol/L FiO2 36 Sodium 146 H (137-145) mmol/L Potassium 4.2 (3.4-5.1) mmol/L Chloride 102 (98-107) mmol/L Carbon Dioxide < 5 L* (22-32) mmol/L BUN 14 (7-17) mg/dL Creatinine 2.48 H (0.52-1.04) mg/dL Estimated GFR 23 L (>60) mL/min BUN/Creatinine Ratio 5.6 L (6-22) Glucose 78 (70-100) mg/dL Lactate 24.9 H* (0.7-2.1) mmol/L Calcium 7.1 L (8.4-10.2) mg/dL Total Bilirubin 3.5 H (0.2-1.3) mg/dL AST 470 H (14-36) IU/L ALT 64 H (<35) IU/L Alkaline Phosphatase 174 H (38-126) U/L Ammonia (9-30) umol/L Total Protein 7.1 (6.3-8.2) g/dL Albumin 3.1 L (3.5-5.0) g/dL Globulin 4.0 (1.7-4.1) g/dL Albumin/Globulin Ratio 0.8 L (1.0-2.8) Lipase 493 H (23-300) U/L Urine Color Yellow Urine Appearance Cloudy Urine pH 5.0 (4.5-8.0) Ur Specific Spencer >=1.030 H (1.000-1.035) Urine Protein 3+ H (Negative) Urine Glucose (UA) Negative (Negative) g/dL Urine Ketones Negative (NEGATIVE) Urine Occult Blood 3+ H (Negative) Urine Nitrate Negative (Negative) Urine Bilirubin 2+ H (NEGATIVE) Ur Bilirubin Confirm TNP Urine Urobilinogen 4.0 H (0.2) E.U./dL Ur Leukocyte Esterase Trace H (NEGATIVE) Urine RBC 5-10/hpf H (0-5/HPF) Urine WBC 5-10/hpf H (0-5/HPF) Ur Squamous Epith Cells 5-10 /hpf H (0-5/HPF) Amorphous Sediment 2+ Urine Bacteria Many (>30) H (None) Ur Culture Indicated? Specimen cultured Vol Urine Centrifuged 10ml (spun) Urine Test Negative (Negative) Salicylates < 1.0 (<20) mg/dL U Opiates 300ng/mL cut Negative (Negative) Ur Oxycodone Screen Negative (Negative) Urine Methadone Screen Negative (Negative) Acetaminophen < 10 (10-30) ug/mL Ur Barbiturates Screen Negative (Negative) U Tricyclic Antidepress Positive H (Negative) Ur Phencyclidine Scrn Negative (Negative) Ur Amphetamines Screen Negative (Negative) U Methamphetamines Scrn Negative (Negative) Ur MDMA Scrn (Ecstasy) Negative (Negative) U Benzodiazepines Scrn Negative (Negative) Urine Cocaine Screen Negative (Negative) U Marijuana (THC) Screen Negative (Negative) Urine Specific [place] (Normal) Ethyl Alcohol ( - 10) mg/dL Ur Creatinine (Normal) Chlamy pneumoniae PCR Not detected (Not Detect) Adenovirus (PCR) Not detected (Not Detect) B.parapertussis DNA PCR Not detected (Not Detecte) Coronavirus OC43 (PCR) Not detected (Not Detect) Coronavirus HKU1 (PCR) Not detected (Not Detect) Coronavirus 229E (PCR) Not detected (Not Detect) SARS-CoV-2 (PCR) Not detected (Not Detecte) Coronavirus NL63 (PCR) Not detected (Not Detect) Human Metapneumovir PCR Not detected (Not Detect) Influenza Type A (PCR) Not detected (Not Detect) Influenza Type B (PCR) Not detected (Not Detect) M. pneumoniae (PCR) Not detected (Not Detect) Parainfluenza 1 (PCR) Not detected (Not Detect) Parainfluenza 2 (PCR) Not detected (Not Detect) Parainfluenza 3 (PCR) Not detected (Not Detect) Parainfluenza 4 (PCR) Not detected (Not Detect) RSV (PCR) Not detected (Not Detect) Entero/Rhino (PCR) Not detected (Not Detect) Blood Type Antibody Screen Antibody Identification Crossmatch 05/07/23 05/07/23 05/07/23 Range/Units 08:20 09:11 09:27 WBC (4.5-11.0) X10^3/uL RBC (4.0-5.2) X10^6/uL Hgb (12.0-16.0) g/dL Hct (36-46) % MCV (80-100) fL MCH (26-34) PG MCHC (30-36) % RDW (11.6-14.8) % Plt Count (150-400) X10^3/uL Neut % (Auto) Lymph % (Auto) Sullivan % (Auto) Eos % (Auto) Baso % (Auto) Neut # (Auto) Lymph # (Auto) Sullivan # (Auto) Eos # (Auto) Baso # (Auto) Total Counted Seg Neutrophils % (38-70) % Band Neutrophils % (3-7) % Lymphocytes % (Manual) (25-45) % Monocytes % (Manual) (2-11) % Eosinophils % (Manual) (2-4) % Neutrophils # (Manual) (5297-7831) /uL Nucleated RBCs ( - 0) #/Diff RBC Morphology Anisocytosis Macrocytosis Tear Drop Cells PT (9.4-12.5) SECONDS INR (0.9-1.3) ABG Sample Site Left brachial ABG pH 6.58 L* (7.35-7.45) ABG pCO2 53.3 H (35-45) mmHg ABG pO2 102 H (80-100) mmHg ABG HCO3 5 L (23-27) mmol/L ABG Total CO2 7 L (23-27) mmol/L ABG O2 Saturation 79 L* (95-100) % ABG Base Excess < -30.0 L (-2-3) mmol/L FiO2 100 Sodium (137-145) mmol/L Potassium (3.4-5.1) mmol/L Chloride (98-107) mmol/L Carbon Dioxide (22-32) mmol/L BUN (7-17) mg/dL Creatinine (0.52-1.04) mg/dL Estimated GFR (>60) mL/min BUN/Creatinine Ratio (6-22) Glucose (70-100) mg/dL Lactate (0.7-2.1) mmol/L Calcium (8.4-10.2) mg/dL Total Bilirubin (0.2-1.3) mg/dL AST (14-36) IU/L ALT (<35) IU/L Alkaline Phosphatase (38-126) U/L Ammonia 401 H (9-30) umol/L Total Protein (6.3-8.2) g/dL Albumin (3.5-5.0) g/dL Globulin (1.7-4.1) g/dL Albumin/Globulin Ratio (1.0-2.8) Lipase (23-300) U/L Urine Color Urine Appearance Urine pH Normal (4.5-8.0) Ur Specific Spencer (1.000-1.035) Urine Protein (Negative) Urine Glucose (UA) (Negative) g/dL Urine Ketones (NEGATIVE) Urine Occult Blood (Negative) Urine Nitrate (Negative) Urine Bilirubin (NEGATIVE) Ur Bilirubin Confirm Urine Urobilinogen (0.2) E.U./dL Ur Leukocyte Esterase (NEGATIVE) Urine RBC (0-5/HPF) Urine WBC (0-5/HPF) Ur Squamous Epith Cells (0-5/HPF) Amorphous Sediment Urine Bacteria (None) Ur Culture Indicated? Vol Urine Centrifuged Urine Test (Negative) Salicylates (<20) mg/dL U Opiates 300ng/mL cut (Negative) Ur Oxycodone Screen (Negative) Urine Methadone Screen (Negative) Acetaminophen (10-30) ug/mL Ur Barbiturates Screen (Negative) U Tricyclic Antidepress (Negative) Ur Phencyclidine Scrn (Negative) Ur Amphetamines Screen (Negative) U Methamphetamines Scrn (Negative) Ur MDMA Scrn (Ecstasy) (Negative) U Benzodiazepines Scrn (Negative) Urine Cocaine Screen (Negative) U Marijuana (THC) Screen (Negative) Urine Specific Spencer Normal (Normal) Ethyl Alcohol 267 H ( - 10) mg/dL Ur Creatinine Normal (Normal) Chlamy pneumoniae PCR (Not Detect) Adenovirus (PCR) (Not Detect) B.parapertussis DNA PCR (Not Detecte) Coronavirus OC43 (PCR) (Not Detect) Coronavirus HKU1 (PCR) (Not Detect) Coronavirus 229E (PCR) (Not Detect) SARS-CoV-2 (PCR) (Not Detecte) Coronavirus NL63 (PCR) (Not Detect) Human Metapneumovir PCR (Not Detect) Influenza Type A (PCR) (Not Detect) Influenza Type B (PCR) (Not Detect) M. pneumoniae (PCR) (Not Detect) Parainfluenza 1 (PCR) (Not Detect) Parainfluenza 2 (PCR) (Not Detect) Parainfluenza 3 (PCR) (Not Detect) Parainfluenza 4 (PCR) (Not Detect) RSV (PCR) (Not Detect) Entero/Rhino (PCR) (Not Detect) Blood Type A Positive Antibody Screen Positive Antibody Identification Anti-K Crossmatch See Detail 05/07/23 Range/Units 10:55 WBC (4.5-11.0) X10^3/uL RBC (4.0-5.2) X10^6/uL Hgb (12.0-16.0) g/dL Hct (36-46) % MCV (80-100) fL MCH (26-34) PG MCHC (30-36) % RDW (11.6-14.8) % Plt Count (150-400) X10^3/uL Neut % (Auto) Lymph % (Auto) Sullivan % (Auto) Eos % (Auto) Baso % (Auto) Neut # (Auto) Lymph # (Auto) Sullivan # (Auto) Eos # (Auto) Baso # (Auto) Total Counted Seg Neutrophils % (38-70) % Band Neutrophils % (3-7) % Lymphocytes % (Manual) (25-45) % Monocytes % (Manual) (2-11) % Eosinophils % (Manual) (2-4) % Neutrophils # (Manual) (4131-7112) /uL Nucleated RBCs ( - 0) #/Diff RBC Morphology Anisocytosis Macrocytosis Tear Drop Cells PT (9.4-12.5) SECONDS INR (0.9-1.3) ABG Sample Site ABG pH (7.35-7.45) ABG pCO2 (35-45) mmHg ABG pO2 (80-100) mmHg ABG HCO3 (23-27) mmol/L ABG Total CO2 (23-27) mmol/L ABG O2 Saturation (95-100) % ABG Base Excess (-2-3) mmol/L FiO2 Sodium (137-145) mmol/L Potassium (3.4-5.1) mmol/L Chloride (98-107) mmol/L Carbon Dioxide (22-32) mmol/L BUN (7-17) mg/dL Creatinine (0.52-1.04) mg/dL Estimated GFR (>60) mL/min BUN/Creatinine Ratio (6-22) Glucose (70-100) mg/dL Lactate (0.7-2.1) mmol/L Calcium (8.4-10.2) mg/dL Total Bilirubin (0.2-1.3) mg/dL AST (14-36) IU/L ALT (<35) IU/L Alkaline Phosphatase (38-126) U/L Ammonia (9-30) umol/L Total Protein (6.3-8.2) g/dL Albumin (3.5-5.0) g/dL Globulin (1.7-4.1) g/dL Albumin/Globulin Ratio (1.0-2.8) Lipase (23-300) U/L Urine Color Urine Appearance Urine pH (4.5-8.0) Ur Specific Spencer (1.000-1.035) Urine Protein (Negative) Urine Glucose (UA) (Negative) g/dL Urine Ketones (NEGATIVE) Urine Occult Blood (Negative) Urine Nitrate (Negative) Urine Bilirubin (NEGATIVE) Ur Bilirubin Confirm Urine Urobilinogen (0.2) E.U./dL Ur Leukocyte Esterase (NEGATIVE) Urine RBC (0-5/HPF) Urine WBC (0-5/HPF) Ur Squamous Epith Cells (0-5/HPF) Amorphous Sediment Urine Bacteria (None) Ur Culture Indicated? Vol Urine Centrifuged Urine Test (Negative) Salicylates (<20) mg/dL U Opiates 300ng/mL cut (Negative) Ur Oxycodone Screen (Negative) Urine Methadone Screen (Negative) Acetaminophen (10-30) ug/mL Ur Barbiturates Screen (Negative) U Tricyclic Antidepress (Negative) Ur Phencyclidine Scrn (Negative) Ur Amphetamines Screen (Negative) U Methamphetamines Scrn (Negative) Ur MDMA Scrn (Ecstasy) (Negative) U Benzodiazepines Scrn (Negative) Urine Cocaine Screen (Negative) U Marijuana (THC) Screen (Negative) Urine Specific Spencer (Normal) Ethyl Alcohol ( - 10) mg/dL Ur Creatinine (Normal) Chlamy pneumoniae PCR (Not Detect) Adenovirus (PCR) (Not Detect) B.parapertussis DNA PCR (Not Detecte) Coronavirus OC43 (PCR) (Not Detect) Coronavirus HKU1 (PCR) (Not Detect) Coronavirus 229E (PCR) (Not Detect) SARS-CoV-2 (PCR) Negative (Not Detecte) Coronavirus NL63 (PCR) (Not Detect) Human Metapneumovir PCR (Not Detect) Influenza Type A (PCR) (Not Detect) Influenza Type B (PCR) (Not Detect) M. pneumoniae (PCR) (Not Detect) Parainfluenza 1 (PCR) (Not Detect) Parainfluenza 2 (PCR) (Not Detect) Parainfluenza 3 (PCR) (Not Detect) Parainfluenza 4 (PCR) (Not Detect) RSV (PCR) (Not Detect) Entero/Rhino (PCR) (Not Detect) Blood Type Antibody Screen Antibody Identification Crossmatch Point of Care Testing Glucose POC 98 MDM Narrative Medical decision making narrative: Fall and generalized weakness in patient who is heavily intoxicated with history of alcohol induced liver disease. Currently no family available at bedside to provide additional history. Preliminary chest x-ray appears to show infiltrates in the right lower lung. 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 ABG ordered for assessment of acid-base status and oxygenation status. Shortly after arrival ABG obtained which showed critical pH 6.78/20.3/79/-30 on nasal cannula. Blood pressure remains soft and IV access difficult. Based on the critical nature of patient's current condition she was taken to resuscitation [place], however due to dropping oxygen saturations and extremely poor prognosis as well as worsening mental status decision was made to intubate patient for airway protection and improved oxygenation. Prior to intubation patient stated she wanted us to ?do whatever you have to do?. Patient intubated and central line placed in right IJ. Intubation complicated by aspiration of gastric contents. Patient subsequently suctioned by RT. NG tube was placed which produced dark red-brown material, however at some point bright red material began to come out of the NG tube. Repeat chest x-ray seems to show worsening bilateral infiltrates and lung protective ventilator settings were initiated with low volumes and high PEEP. Due to suspected GI bleed Rocephin, Protonix, octreotide, bicarb ordered. Packed red blood cells ordered on standby. Family in waiting room states that patient has had history of esophageal varices. She has been sober for several years but has been drinking heavily for quite some time and does seem interested in prolonged sobriety. 0930 -patient is stabilized on ventilator and pressors. Call placed to transfer center for higher level of care. Repeat ABG shows worsening acidosis. PRBCs transfusing now. 1026- Accepted by hearing therapist Dr. Edward Flores at [facility] for transfer. Pending bed assignment for transport. 1213 - Life flight transported patient in critical, but medically optimized condition to outside hospital Critical Care Time Critical Care Time Critical Care Time: Yes Total Critical Care Time: 83 Attestation: Multi organ failure requiring resuscitation. Acute hypoxemic respiratory failure requiring intubation. Transfusion of PRBCs. [facility] to higher level of care.. Goals of care discussion wtih family. Discharge Plan Departure Patient Disposition: [facility] Clinical Impression: Septic shock, Alcoholic liver disorder, Acute hypoxemic respiratory failure, Metabolic acidosis, Hyperammonemia, Thrombocytopenia Bleeding esophageal varices Qualifiers: Esophageal varices type: unspecified type Qualified Code(s): I85.01 - Esophageal varices with bleeding Acute kidney failure Qualifiers: Acute renal failure type: unspecified Qualified Code(s): N17.9 - Acute kidney failure, unspecified Alcohol intoxication in active alcoholic Qualifiers: Complication of substance-induced condition: with unspecified complication Qualified Code(s): F10.229 - Alcohol dependence with intoxication, unspecified Prescriptions: No Action potassium chloride [Klor-Con M20] 20 mEq Tablet,Er Particles/Crystals 40 meq PO BIDWM Qty: 60 1RF albuterol sulfate 90 mcg/actuation HFA aerosol inhaler 2 puff INHALATION Q4-6H PRN (Reason: shortness of breath or wheezing) Qty: 8.5 0RF Rx Instructions: 1-2 puffs with a spacer every 2-4 hours as needed for wheezing, cough and shortness of breath nicotine 14 mg/24 hr patch 24 hour 1 patch transdermal DAILY Qty: 14 0RF oxycodone 5 mg tablet 5 mg PO Q4-6H PRN (Reason: pain (scale score 7-10)) Qty: 14 0RF trazodone 50 mg tablet 50 - 100 mg PO BEDTIME PRN (Reason: Sleep) citalopram 20 mg tablet 20 mg PO DAILY Patient Comments: take 1 tablet by mouth once daily gabapentin 300 mg capsule 900 mg PO BID dicyclomine 10 mg capsule 20 mg PO DAILY Patient Comments: take 2 capsules by mouth once daily oxycodone 5 mg tablet 5 mg PO BID PRN methocarbamol 500 mg tablet 500 mg PO BEDTIME Hold Instructions: Home Medication placed on hold at Doctor's office cyclobenzaprine 10 mg tablet 10 mg PO BID PRN (Reason: muscle spasm) Qty: 60 1RF calcitonin (salmon) 200 unit/actuation spray,non-aerosol 1 spray intranasal (ALT) DAILY 90 Days Qty: 3.7 2RF Rx Instructions: sacral fx Referrals: Santiago Aguillon MD [Primary Care Provider] -
--- NOTE | 2023-05-07 07:40 | PC.NURSE ---
Patient in bed sitting up, alert with grayish coloring to skin and distended abdomen. Her O2 saturation is 83% on room air and BP was 88 systolic. I adjusted SPO2 probe multiple times on different fingers and with a good pleth the SPO2 still reads mid 80's on room air. I placed her on 2L of O2 by nasal cannula and SPO2 only perla to 85%. I then placed her on 4L O2NC and SPO@ perla to 89%. Lung sounds are clear to auscultation, the patient is breathing at a normal rate and depth with no apparent respiratory distress. She denies any lung disease and states she does smoke cigarettes but I'm down to only one per day. She reports she has been drinking, that she does have cirrhosis and that she has not had to have a paracentesis yet. Abdomen is distended however not taut. She reports she has had a cough for the last 4-5 days. I placed her in a gown, repositioned her with assistance from NITZA Thomas and placed a smaller appropriately sized BP cuff on her. Her BP is now 100 systolic. Ok to go to CT on 4L NC O2 at this time per Dr. Crespo. Patient went to head CT.
--- NOTE | 2023-05-07 07:48 | PC.NURSE ---
There is dried blood in the patient's mouth and on her teeth. Patient states she bit her tongue, there does appear to be a cut to her tongue. NITZA Thomas cleaned her mouth, patient denies any seizures.
[2023-05-07 08:20] LABS: PCO2 ABG 20.3 mmHg (35-45); PO2 ABG 79 mmHg (80-100); pH ABG 6.79 (7.35-7.45)
[2023-05-07 08:21] LABS: Allen Test for ABG Passed? Yes, Passed; Base Excess ABG < -30.0 mmol/L (-2-3); Blood Gas Collection Site Right Brachial; Fractionated Inspired Oxygen 36; HCO3 ABG 3 mmol/L (23-27); Oxygen Saturation ABG 78 % (95-100); TCO2 ABG < 5 mmol/L (23-27)
[2023-05-07] MEDS: ETOMIDATE 2 MG/ML 10 ML VIAL 20 MG IV (08:43)
[2023-05-07] MEDS: ROCURONIUM 100 MG/10 ML VIAL 80 MG IV (08:44)
[2023-05-07 09:00] LABS: INR 1.6 (0.9-1.3); Prothrombin Time 18.9 SECONDS (9.4-12.5)
[2023-05-07 09:06] LABS: Acetaminophen < 10 ug/mL (10-30); Alanine Aminotransferase 64 IU/L (<35); Albumin 3.1 g/dL (3.5-5.0); Albumin Globulin Ratio 0.8 (1.0-2.8); Alkaline Phosphatase 174 U/L (38-126); Aspartate Aminotransferase 470 IU/L (14-36); BUN Creatinine Ratio 5.6 (6-22); Bilirubin Total 3.5 mg/dL (0.2-1.3); Blood Urea Nitrogen 14 mg/dL (7-17); Calcium 7.1 mg/dL (8.4-10.2); Chloride 102 mmol/L (98-107); Estimated Glomerular Filt Rate 23 mL/min (>60); Ethanol (ETOH) 267 mg/dL; Glucose 78 mg/dL (70-100); HEMOLYSIS 44 (0-50); Potassium 4.2 mmol/L (3.4-5.1); Salicylate < 1.0 mg/dL (<20); Sodium 146 mmol/L (137-145); Total Protein 7.1 g/dL (6.3-8.2)
--- NOTE | 2023-05-07 09:09 | RT ---
Did ABG at 0805 PH 6.78 PCO2 20.3 PO2 79 HCO3 3.1 advised to move patient to 1. I asked Dr. Crespo if she wanted me to set up the intubation stuff and she said she'll call if needed. Called [facility] at 0830 for intubation she was intubated at 0845 and is stable on the LTV on ACVC vt 365 rr 16 peep 5 100% O2
[2023-05-07] MEDS: NOREPINEPHRINE BITARTRATE/D5W 4 MG/250 ML PLAST..BAG 30 MG IV (09:14)
[2023-05-07] MEDS: propofoL 1,000 MG/100 ML VIAL 2.313 MG IV (09:17)
[2023-05-07] MEDS: cefTRIAXone 2,000 MG in SODIUM CHLORIDE 0.9% 100 ML 200 MG IV (09:25)
[2023-05-07] MEDS: PANTOPRAZOLE 40 MG VIAL 80 MG IV (09:26)
[2023-05-07] MEDS: OCTREOTIDE 500 MCG in SODIUM CHLORIDE 0.9% 100 ML 10.1 MCG IV (09:29)
[2023-05-07] MEDS: SODIUM BICARB 8.4% VIAL 150 MEQ in DEXTROSE 5% WATER 1,000 ML IV (09:30)
[2023-05-07 09:32] LABS: Carbon Dioxide < 5 mmol/L (22-32)
[2023-05-07 09:33] LABS: Ammonia (NH3) 401 umol/L (9-30)
[2023-05-07 09:46] LABS: Lipase 493 U/L (23-300)
[2023-05-07] MEDS: VANCOMYCIN 1,500 MG/300 ML PIGGYBACK 200 MG IV (09:48)
[2023-05-07 09:56] LABS: Base Excess ABG < -30.0 mmol/L (-2-3); HCO3 ABG 5 mmol/L (23-27); PCO2 ABG 53.3 mmHg (35-45); PO2 ABG 102 mmHg (80-100); pH ABG 6.58 (7.35-7.45)
[2023-05-07 09:57] LABS: Fractionated Inspired Oxygen 100; Oxygen Saturation ABG 79 % (95-100); TCO2 ABG 7 mmol/L (23-27)
[2023-05-07 09:58] LABS: Blood Gas Collection Site Left Brachial
[2023-05-07] MEDS: THIAMINE 200 MG in SODIUM CHLORIDE 0.9% 100 ML 408 MG IV (10:08)
[2023-05-07 10:19] LABS: Appearance Urine UA CLOUDY; Bilirubin Urine UA 2+ (NEGATIVE); Color Urine UA YELLOW; Glucose Urine UA NEGATIVE (Negative); Ketones Urine UA NEGATIVE (NEGATIVE); Leukocyte Esterase Urine UA TRACE (NEGATIVE); Nitrite Urine UA NEGATIVE (Negative); Occult Blood Urine UA 3+ (Negative); Protein Urine UA 3+ (Negative); Specific Gravity Urine UA >=1.030 (1.000-1.035)
--- NOTE | 2023-05-07 10:26 | PC.NURSE ---
Called [facility], [facility], [facility] Images pushed to each of the listed facilities. Sent face sheet sent and called [facility]: [facility] @[phone] Sent face sheet sent and called [facility] @[phone] Sent face sheet sent and called @[phone] Dr. Crespo informed this TAILER OFF that pt has been accepted at PH: [facility] by Dr. Flores
--- NOTE | 2023-05-07 10:27 | PC.NURSE ---
0833 Patient continues to decompensate with worsening O2 Sat and blood pressure. Patient is A&Ox3 at this time and agrees to green Catheter as well as intubation. She states do what you need to do. Family in lobby, mom and daughter were informed of the patient's wishes and that intubation will take place. They report that she has a long history of alcohol dependence and has had esophageal varices. Dr Crespo made aware of history of varices. 0845 Intubation performed by Emerald Crespo MD at 0845 following sedation with 20mg etomidate and 80mg rocuronium. There was bloody aspirate suctioned from lungs during intubation. Breath sounds clear to auscultation after intubation. 23 at teeth. 0850 18fr OG placed with 1L of dark bloody output suctioned from stomach within 15 minutes
[2023-05-07 10:28] LABS: UR Morphine/Opiate cutoff 300 Negative (Negative); Ur Creatinine Normal (Normal); Ur Specific Gravity Normal (Normal); Urine Amphetamines Negative (Negative); Urine Barbiturates Negative (Negative); Urine Benzodiazepines Negative (Negative); Urine Cocaine Negative (Negative); Urine MDMA Negative (Negative); Urine Methadone Negative (Negative); Urine Methamphetamines Negative (Negative); Urine Oxycodone Negative (Negative); Urine Phencyclidine Negative (Negative); Urine Tetrahydrocannabinol Negative (Negative); Urine Tricyclic Antidepressant Positive (Negative); Urine pH Normal (Normal)
[2023-05-07 10:30] LABS: Hematocrit 38.9 % (36-46); Mean Corpuscular HGB Conc 28.2 % (30-36); Mean Corpuscular Hemoglobin 38.9 PG (26-34); Mean Corpuscular Volume 137.7 fL (80-100); Platelet Count 72 X10^3/uL (150-400); Red Blood Cell Count 2.83 X10^6/uL (4.0-5.2); Red Cell Distribution Width 21.3 % (11.6-14.8); White Blood Cell Count 19.5 X10^3/uL (4.5-11.0)
[2023-05-07 10:31] LABS: Amorphous Sediment Urine 2+; Bacteria Urine Many (>30); Culture Indicated Urine Specimen Cultured; RBC Urine 5-10/HPF (0-5/HPF); Squamous Epithelial Cell Urine 5-10 /HPF (0-5/HPF); Urine Volume 10mL (spun); WBC Urine 5-10/HPF (0-5/HPF)
[2023-05-07 10:35] LABS: Add Manual Diff / Slide Review YES
--- NOTE | 2023-05-07 10:39 | PC.NURSE ---
0851 Order given by Emerald Crespo MD for: 2gm cefepime, which was later changed to 2gm ceftriaxone 1.5gm vancomycin Levophed drip propofol drip 80mg protonix bolus octreotide drip Bicarb drip type & Screen + 2 units of uncrossmatched blood 0900 Dr. Crepso placed a central line 7french triple lumen in right IJ
[2023-05-07 10:47] LABS: Adenovirus Not Detected (Not Detect); B. parapertussis Not Detected (Not Detecte); Bordetella pertussis Not Detected (Not Detect); Chlamydophila pneumoniae Not Detected (Not Detect); Coronavirus 229E Not Detected (Not Detect); Coronavirus HKU1 Not Detected (Not Detect); Coronavirus NL 63 Not Detected (Not Detect); Coronavirus OC43 Not Detected (Not Detect); Human Metapneumovirus Not Detected (Not Detect); Human Rhinovirus/Enterovirus Not Detected (Not Detect); Influenza A Not Detected (Not Detect); Influenza B Not Detected (Not Detect); Mycoplasma pneumoniae Not Detected (Not Detect); Parainfluenza Virus 1 Not Detected (Not Detect); Parainfluenza Virus 2 Not Detected (Not Detect); Parainfluenza Virus 3 Not Detected (Not Detect); Parainfluenza Virus 4 Not Detected (Not Detect); Respiratory Syncytial Virus Not Detected (Not Detect); SARS- CoV-2 Not Detected (Not Detecte)
--- NOTE | 2023-05-07 10:48 | PC.NURSE ---
1050ml of blood from OG tube drainage collection kit.
[2023-05-07 10:50] LABS: Lactate (Lactic Acid) 24.9 mmol/L (0.7-2.1)
[2023-05-07 11:15] LABS: COVID19 -Nasal RAPID Negative (Negative)
[2023-05-07 11:16] LABS: Pregnancy Test Urine Negative (Negative)
[2023-05-07 11:40] LABS: Neutrophils Absolute Manual 17745 /uL (3000-5900); Nucleated Red Blood Cells 1 #/Diff; Total Cells Counted 100
[2023-05-07 11:42] LABS: Anisocytosis 2+; Macrocytosis 2+
[2023-05-07 11:43] LABS: Tear Drop Cells 1+
[2023-05-07 11:51] LABS: Reflexed Lactate in 2 Hours Y
--- NOTE | 2023-05-07 12:09 | PC.NURSE ---
1000 Mom, Dad, and sister at bedside.
--- NOTE | 2023-05-07 12:15 | PC.NURSE ---
Report given to jodie at this time. Meds. continued during transfer include: Norepinephrine 75ml/hr, propofol 2.313ml/hr, octreotide 10.1ml/hr, sodium bicarb 150ml/hr. Report given to Ewa Reyna in ICU at [facility]
== END 2023-05-07 12:18 | disposition short-term general hospital (02) ==
PROVIDERS: Emergency Provider Emergency Medicine; PCP Family Medicine
DX: R65.21 Severe sepsis with septic shock (principal); J96.01 Acute respiratory failure with hypoxia; K70.30 Alcoholic cirrhosis of liver without ascites; F10.229 Alcohol dependence with intoxication, unspecified; Y90.8 Blood alcohol level of 240 mg/100 ml or more; I85.01 Esophageal varices with bleeding; E87.20 Acidosis, unspecified; E72.20 Disorder of urea cycle metabolism, unspecified; N17.9 Acute kidney failure, unspecified; D69.6 Thrombocytopenia, unspecified; Z20.822 Contact with and (suspected) exposure to COVID-19
CPT/HCPCS: 31500; 36415; 36430; 36569; 36600; 70450; 71045; 80053; 80305; 80320; 80329; 81001; 81025; 82140; 82805; 82962; 83605; 83690; 85007; 85025; 85610; 86850; 86870; 86900; 86901; 86927; 87040; 87077; 87086; 87186; 87633; 87635; 93005; 93010; 94799; 96365; 96366; 96367; 96368; 96375; 99285; 99291; 99292; P9016; C9113; G0480; J0696; J2354; J2704